=== PATIENT | male | born 1965 | race Caucasian/White ===

== ENCOUNTER 2018-02-03 14:51 | Emergency (ER) | payer OTHER ==
[2018-02-03] MEDS ORDERED: HYDROCODONE/APAP 5/325 MG TAB ONE (15:23)
[2018-02-03] MEDS ORDERED: DIAZEPAM 2 MG TABLET ONE (15:25)
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
--- NOTE | 2018-02-03 16:57 | RAD REPORT ---
EXAM DESCRIPTION: RAD - Lumbar Spine 3 Views - 02/03/2018 4:35 pm CLINICAL HISTORY: Back pain FINDINGS: The alignment of the lumbar spine is satisfactory. No fracture or dislocation is seen. Minimal spondylosis involves the lumbar spine
== END 2018-02-03 16:49 | disposition home or self-care (01) ==
LOC: ER 14:51
DX: I10 Essential (primary) hypertension (principal); V49.40XA Driver injured in collision with unspecified motor vehicles in traffic accident, initial encounter; E11.9 Type 2 diabetes mellitus without complications; Z88.6 Allergy status to analgesic agent; Z88.8 Allergy status to other drugs, medicaments and biological substances
CPT/HCPCS: 72100; 99284

== ENCOUNTER 2019-08-26 17:23 | Observation (INO) | payer OTHER ==
[2019-08-26] MEDS ORDERED: NA CHLORIDE 0.9% 1,000 ML ONE ×2 (17:47→19:31)
[2019-08-26] MEDS ORDERED: NA CHLORIDE 0.9% 2,000 ML ONE (17:58)
--- NOTE | 2019-08-26 18:18 | RAD REPORT ---
EXAM DESCRIPTION: RAD - Chest Single View - 08/26/2019 6:13 pm CLINICAL HISTORY: DYSPNEA Chest pain. COMPARISON: Chest Pa And Lat (2 Views) dated 04/26/2016; Chest Pa And Lat (2 Views) dated 07/13/2015 FINDINGS: Portable technique limits examination quality. The lungs are grossly clear. The heart is normal in size. No displaced fractures. IMPRESSION: No acute intrathoracic process suspected.
[2019-08-26 18:20] LABS: Absolute Lymphocytes (CBC) 2.2 K/uL (0.7-4.9); Basophils % 0.8 % (0-1.3); Lymphocytes % 23.2 % (15.3-44.8); MPV 8.6 fL (7.6-11.3); RBC Red Blood Cell Count 4.17 M/uL (4.33-5.43)
[2019-08-26 18:25] LABS: Protime INR 0.95
--- NOTE | 2019-08-26 18:34 | RAD REPORT ---
EXAM DESCRIPTION: CTAbdomen Pelvis W Contrast - 08/26/2019 6:23 pm CLINICAL HISTORY: Abdominal pain. diarrhea, weakness x 2 weeks COMPARISON: <Comparisons> TECHNIQUE: Biphasic CT imaging of the abdomen and pelvis was performed with 100 ml non-ionic IV cont rast. All CT scans are performed using dose optimization technique as appropriate and may include automated exposure control or mA/KV adjustment according to patient size. FINDINGS: The lung bases are clear. Advanced fatty liver is present. Cholecystectomy clips are seen. The spleen, pancreas, adrenal glands and kidneys are within normal limits. No bowel obstruction, free air, free fluid or abscess. The appendix is normal. Moderate fat containi ng left inguinal hernia. No evidence of significant lymphadenopathy. No suspicious bony findings. IMPRESSION: Advanced fatty liver.
[2019-08-26 18:40] LABS: ALT/SGPT 91 U/L (12-78); AST/SGOT 67 U/L (15-37); Albumin 4.4 g/dL (3.4-5.0); Alkaline Phosphatase 53 U/L (45-117); BUN Blood Urea Nitrogen 16 mg/dL (7-18); Bicarbonate 23 mmol/L (21-32); Bilirubin Direct 0.2 mg/dL (0-0.2); Bilirubin Total 0.5 mg/dL (0.2-1.0); Glucose Level 173 mg/dL (74-106); Lipase 146 U/L (73-393); Potassium 3.5 mmol/L (3.5-5.1); Protein, Total 8.6 g/dL (6.4-8.2); Sodium Level 133 mmol/L (136-145); Troponin (Emerg Dept Use Only) < 0.02 ng/mL (0.0-0.045)
[2019-08-26 18:42] LABS: C-Reactive Protein < 2.90 mg/L (<3.00)
[2019-08-26] MEDS ORDERED: ONDANSETRON 4 MG/2 ML VIAL IV PRN ×2 (18:45→21:12)
[2019-08-26] MEDS ORDERED: ACETAMINOPHEN 500 MG TAB PO PRN (18:45)
[2019-08-26] MEDS ORDERED: NA CHLORIDE 0.9% 1,000 ML IV SCH (19:00)
[2019-08-26] MEDS ORDERED: DIAZEPAM 10 MG/2 ML INJ SYRINGE ONE (19:37)
[2019-08-26 19:47] LABS: Urine Blood TRACE (NEG); Urine Glucose NEGATIVE (NEG); Urine Protein NEGATIVE (NEG); Urine Specific Gravity 1.015 (1.005-1.030); Urine pH 5.5 (5.0-7.0)
[2019-08-26 19:51] LABS: Urine Bacteria <20 /HPF (NONE SEEN); Urine Culture Reflex Order NOT NEEDED; Urine RBC <5 /HPF (NONE SEEN)
[2019-08-26] MEDS ORDERED: GABAPENTIN 100 MG CAP PO SCH (21:00)
[2019-08-26] MEDS ORDERED: HYDRALAZINE HCL 20 MG/ML VIAL IV PRN (21:12)
[2019-08-26] MEDS ORDERED: Oxycodone HCl/Acetaminophen 1 TAB TAB PO PRN (21:12)
[2019-08-26] MEDS ORDERED: GLUCAGON 1 MG/VIAL IM PRN (21:12)
[2019-08-26] MEDS ORDERED: D50W 25 GM/50 ML SYRINGE/VIAL IV PRN (21:12)
[2019-08-26] MEDS ORDERED: guaiFENesin 100 MG/5 ML UCUP PO PRN (21:12)
[2019-08-26] MEDS ORDERED: ACETAMINOPHEN 325 MG TABLET PO PRN (21:12)
[2019-08-26] MEDS ORDERED: POTASSIUM CL SA 10 MEQ TAB PO ONE (21:16)
[2019-08-26] MEDS ORDERED: AMLODIPINE 5 MG TAB PO ONE (21:17)
--- NOTE | 2019-08-26 21:27 | P.HP ---
Certification for Inpatient Patient admitted to: Observation With expected LOS: <2 Midnights Patient will require the following post-hospital care: None Practitioner: I am a practitioner with admitting privileges, knowledge of patient current condition, hospital course, and medical plan of care. Services: Services provided to patient in accordance with Admission requirements found in Title 42 Section 412.3 of the Code of Federal Regulations Patient History Date of Service: 08/26/19 Reason for admission: Weakness, cough and diarrhea History of Present Illness: 54-year-old male with past medical history of HTN, Diabetes mellitus type 2 with recent peripheral neuropathy, hyperlipidemia, developed body aches since last 2 weeks gradually worsening associated with new onset intermittent cough nonproductive since the last 1 day. Patient denies any fever. Patient admits to feeling of swelling around low-dose in his neck and back of his head. He denies any headache, dizziness or syncope. He admits to abdominal cramps with diarrhea since the last 3 days but no episode of bowel movement today due to loss of appetite. He feels hungry now more like something to eat. On arrival in the ED he was noted with elevated blood pressure. He has also be complain of cough but no sputum, no cough contact. He denies any fever or chills. Allergies rofecoxib [From Vioxx] Allergy (Verified 07/28/16 09:28) Rash No K Allergy (Uncoded 12/14/16 01:01) Unknown Home Medications: Cholecalciferol (Vitamin D3) [Vitamin D3] 5,000 unit PO DAILY 05/19/16 Empagliflozin [Jardiance] 10 mg PO DAILY 05/19/16 Insulin Degludec [Tresiba Flextouch U-100] 20 unit SQ DAILY AFTER SUPPER 05/19/16 Metformin HCl [Glucophage] 1,000 mg PO BID 05/19/16 Omeprazole 20 mg PO DAILY 05/19/16 Simvastatin [Zocor*] 40 mg PO BEDTIME 05/19/16 hydroCHLOROthiazide [Hydrodiuril*] 25 mg PO [id number] 05/19/16 lisinopriL [Prinivil*] 20 mg PO [id number] 05/19/16 - Past Medical/Surgical History Has patient received pneumonia vaccine in the past: No Diabetic: Yes -: Hypertension, Diabetes mellitus -: Hyperlipidemia -: Peripheral neuropathy -: Obesity -: History of GERD Past Surgical History: Reviewed- Non-Contributory - Family History Family History: Reviewed- Non-Contributory - Social History Smoking Status: Never smoker Smoking therapy provided: No Patient receptive to therapy: No Alcohol use: No CD- Drugs: No Place of Residence: Home Review of Systems 10-point ROS is otherwise unremarkable General: Weakness, Malaise Eyes: Unremarkable ENT: Unremarkable Respiratory: Cough Cardiovascular: Unremarkable Gastrointestinal: Nausea, Diarrhea Genitourinary: Unremarkable Musculoskeletal: Unremarkable Integumentary: Unremarkable Neurological: Numbness (in LE ) Physical Examination - Vital Signs Temperature: 98.2 F Blood Pressure: 148/104 Pulse: 138 Respirations: 24 - Physical Exam General: In no apparent distress, Oriented x3, Obese HEENT: Atraumatic, Normocephalic, PERRLA Neck: Supple, 2+ carotid pulse no bruit, JVD not distended Respiratory: Clear to auscultation bilaterally, Normal air movement Cardiovascular: Normal pulses, Regular rate/rhythm, Normal S1 S2 Gastrointestinal: Normal bowel sounds, Hypoactive, Soft and benign, Non- distended Musculoskeletal: No clubbing, No swelling Neurological: Normal gait, Normal speech, Normal strength at 5/5 x4 extr External genitalia: No edema, No lesions - Studies Laboratory Data (last 24 hrs) 08/26/19 18:05: PT 11.2, INR 0.95, APTT 32.1 08/26/19 18:05: WBC 9.4, Hgb 13.5 L, Hct 39.0 L, Plt Count 220 08/26/19 18:05: Sodium 133 L, Potassium 3.5, BUN 16, Creatinine 1.00, Glucose 173 H, Total Bilirubin 0.5, AST 67 H, ALT 91 H, Alkaline Phosphatase 53, Lipase 146 Microbiology Data (last 24 hrs): 08/26/19 17:50 Nasopharnyx Influenza Type A Antigen Screen - Final 08/26/19 17:50 Nasopharnyx Influenza Type B Antigen Screen - Final 08/26/19 17:50 Throat Group A Streptococcus Rapid Screen - Final 08/26/19 17:55 Stool Stool Occult Blood (RENZO) - Final 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 Assessment and Plan - Problems (Diagnosis) (1) Viral syndrome Current Visit: Yes Status: Acute (2) Hypertension Current Visit: Yes Status: Acute (3) Diabetes mellitus Current Visit: Yes Status: Acute (4) Peripheral neuropathy Current Visit: Yes Status: Acute (5) Hyperlipidemia Current Visit: Yes Status: Acute Discharge Plan: Home Plan to discharge in: 24 Hours - Advance Directives Does patient have a Living Will: No Does patient have a Durable POA for Healthcare: No - Code Status/Comfort Care Code Status: Full Code Physician Review: Patient Assessed, Agree with Above Assessment and Plan Physician Review Additional Text: Viral syndrome-resolving Will do Covid 19 testing Keeping in isolation unit Continue gentle IV fluid as tolerated but will encourage p.o. intake. If negative covid 19 testing in a.m. patient can be discharged home since resolving symptoms -we start him on empirical Rocephin for now Follow blood culture Hypertension-uncontrolled, will hold lisinopril and hydrochlorothiazide for now since contrast exposure iliac today We start amlodipine 10 mg x1 now and start Metoprolol 50 mg bid since elevated HR Resume lisinopril in a.m. if stable renal function. We do hydralazine p.r.n. Diabetes mellitus-we do Accu-Cheks b.i.d. with insulin sliding scale. Hold metformin for now since contrast exposure for next 24 hr. Peripheral neuropathy-unsure of home medication his recently was started on - will trial of Neurontin x1 now DVT prophylaxis-subcutaneous Lovenox Advanced directive-full code Total time spent evaluation patient discussion review of records greater than 60 min
[2019-08-26] MEDS ORDERED: CEFTRIAXONE/SWI 1gm 1 GM/10 ML SYR IV SCH (22:00)
[2019-08-26] MEDS ORDERED: NS KCL 20MEQ 20 MEQ/1,000 ML BAG IV SCH (22:00)
[2019-08-26 22:18] LABS: Thyroid Stimulating Hormone 4.16 uIU/mL (0.360-3.740)
[2019-08-26 22:21] VITALS: BMI 34.0
[2019-08-26] MEDS: FAMOTIDINE 20 MG TAB PO SCH (23:00)
[2019-08-26] MEDS: METOPROLOL XL 50 MG TAB PO SCH (23:04)
[2019-08-27] MEDS: METOPROLOL XL 50 MG TAB PO SCH (05:14)
[2019-08-27 05:38] LABS: Absolute Lymphocytes (CBC) 1.7 K/uL (0.7-4.9); Basophils % 0.9 % (0-1.3); Hematocrit 37.1 % (39.6-49.0); Lymphocytes % 27.8 % (15.3-44.8); MPV 8.7 fL (7.6-11.3); RBC Red Blood Cell Count 3.87 M/uL (4.33-5.43)
[2019-08-27 05:54] LABS: ALT/SGPT 69 U/L (12-78); AST/SGOT 41 U/L (15-37); Albumin 3.9 g/dL (3.4-5.0); Alkaline Phosphatase 41 U/L (45-117); BUN Blood Urea Nitrogen 12 mg/dL (7-18); Bicarbonate 25 mmol/L (21-32); Bilirubin Total 0.5 mg/dL (0.2-1.0); Glucose Level 111 mg/dL (74-106); Phosphorus 1.9 mg/dL (2.5-4.9); Protein, Total 7.4 g/dL (6.4-8.2); Sodium Level 140 mmol/L (136-145)
[2019-08-27 05:58] LABS: Magnesium 1.4 mg/dL (1.8-2.4)
[2019-08-27] MEDS ORDERED: Magnesium Sulfate 2gm IVPB 2 G/50 ML BAG IV ONE (06:19)
--- NOTE | 2019-08-27 06:45 | P.DS ---
Admission Date: 08/26/19 Discharge Date: 08/27/19 Disposition: ROUTINE DISCHARGE Discharge Condition: GOOD Reason for Admission: Weakness, cough and diarrhea - Problems (1) Viral syndrome Current Visit: Yes Status: Acute (2) Hypertension Current Visit: Yes Status: Acute (3) Diabetes mellitus Current Visit: Yes Status: Acute (4) Peripheral neuropathy Current Visit: Yes Status: Acute (5) Hyperlipidemia Current Visit: Yes Status: Acute Brief History of Present Illness: 54-year-old male with past medical history of HTN, Diabetes mellitus type 2 with recent peripheral neuropathy, hyperlipidemia, developed body aches since last 2 weeks gradually worsening associated with new onset intermittent cough nonproductive since the last 1 day. Patient denies any fever. Patient admits to feeling of swelling around low-dose in his neck and back of his head. He denies any headache, dizziness or syncope. He admits to abdominal cramps with diarrhea since the last 3 days but no episode of bowel movement today due to loss of appetite. He feels hungry now more like something to eat. On arrival in the ED he was noted with elevated blood pressure. He has also be complain of cough but no sputum, no cough contact. He denies any fever or chills. Hospital Course: Patient was admitted Overnite. He did not have any recurrence of diarrhea. He was started on gentle IV fluid hydration with potassium replacement. His magnesium was low at 1.4 which was repleted as well as his phos was was also repleted. His tsh was normal. He has mild elevated LFTs trended down to normal within 12 hr of presentation. As well as correction of his electrolytes. Patient weakness started to improve. His appetite improved and was started on p.o. intake. Patient will be discharged with p.o. magnesium for the next 5 days. Symptoms will of felt to be due to viral syndrome with possible recent acute gastroenteritis. He has covid 19 test was negative. He will be discharged home today and advice to follow up with primary in 3-5 days. Of note she has elevated blood pressure but given his electrolyte imbalance his hydrochlorothiazide was held as well as he was started on metoprolol for elevated heart rate. Physiatry DD improved to normal range now. Vital Signs/Physical Exam: Temp Pulse Resp BP Pulse Ox 97.7 F 90 16 141/96 H 96 08/27/19 04:00 08/27/19 05:14 08/27/19 04:00 08/27/19 05:14 08/27/19 04:00 General: In no apparent distress, Oriented x3 HEENT: Atraumatic, Normocephalic Neck: Supple, 2+ carotid pulse no bruit Respiratory: Clear to auscultation bilaterally, Normal air movement Cardiovascular: Normal pulses, Regular rate/rhythm, Normal S1 S2 Gastrointestinal: Normal bowel sounds, Soft and benign, Non-distended Integumentary: No rashes, No breakdown Neurological: Normal speech, Normal strength at 5/5 x4 extr, Cranial nerves 3-12 intact Laboratory Data at Discharge: WBC 6.3 K/uL (4.3-10.9) D 08/27/19 05:15 Hgb 12.7 g/dL (13.6-17.9) L 08/27/19 05:15 Hct 37.1 % (39.6-49.0) L 08/27/19 05:15 Plt Count 181 K/uL (152-406) 08/27/19 05:15 PT 11.2 SECONDS (9.5-12.5) 08/26/19 18:05 INR 0.95 08/26/19 18:05 APTT 32.1 SECONDS (24.3-36.9) 08/26/19 18:05 Sodium 140 mmol/L (136-145) 08/27/19 05:15 Potassium 4.0 mmol/L (3.5-5.1) 08/27/19 05:15 BUN 12 mg/dL (7-18) 08/27/19 05:15 Creatinine 0.80 mg/dL (0.55-1.3) 08/27/19 05:15 Glucose 111 mg/dL (74-106) H 08/27/19 05:15 Phosphorus 1.9 mg/dL (2.5-4.9) L 08/27/19 05:15 Magnesium 1.4 mg/dL (1.8-2.4) L* 08/27/19 05:15 Total Bilirubin 0.5 mg/dL (0.2-1.0) 08/27/19 05:15 AST 41 U/L (15-37) H 08/27/19 05:15 ALT 69 U/L (12-78) 08/27/19 05:15 Alkaline Phosphatase 41 U/L (45-117) L 08/27/19 05:15 Lipase 146 U/L (73-393) 08/26/19 18:05 Home Medications: Metformin HCl [Glucophage] 1,000 mg PO BID 05/19/16 Omeprazole 40 mg PO DAILY 05/19/16 Simvastatin [Zocor*] 40 mg PO BEDTIME 05/19/16 lisinopriL [Prinivil*] 20 mg PO [id number] 05/19/16 Montelukast [Singulair*] 10 mg PO DAILY 08/26/19 Sildenafil Citrate 20 mg PO PRN PRN 08/26/19 Magnesium Oxide 400 mg PO BID #10 tablet 08/27/19 Metoprolol Succinate [Toprol Xl*] 50 mg PO DAILY #30 tab 08/27/19 New Medications: Magnesium Oxide 400 mg PO BID #10 tablet Metoprolol Succinate [Toprol Xl*] 50 mg PO DAILY #30 tab Patient Discharge Instructions: follow wth PCP in 3-5 days Diet: Low sodium Activity: Ad kylah Time spent managing pt's care (in minutes): 35
--- NOTE | 2019-08-27 07:08 | EKG ---
Test Date: 2019-08-26 Test Time: 17:46:35 Accident Report Clerk: MAXINE MEASUREMENT RESULTS: Intervals: Rate: 145 OK: 118 QRSD: 74 QT: 274 QTc: 425 [place]: P: 38 OK: 118 QRS: -1 T: 28 INTERPRETIVE STATEMENTS: Sinus tachycardia Otherwise normal ECG Compared to ECG 12/13/2016 21:25:39 ST (T wave) deviation no longer present Electronically Signed On 08-27-19 07:07:59 CDT by Abner Schmid
[2019-08-27] MEDS ORDERED: INSULIN -REGULAR HUMAN 50 UNIT/0.5 ML ML SQ SCH (07:30)
[2019-08-27] MEDS ORDERED: METFORMIN HCL 500 MG TAB PO SCH (08:00)
[2019-08-27] MEDS: POTASS/SODIUM PHOSPHATE 1 PKT POWD.PACK PO SCH ×2 (08:00→09:00)
[2019-08-27] MEDS ORDERED: POTASSIUM PHOS 20 MM in NA CHLORIDE 0.9% 500 ML IV ONE (09:00)
[2019-08-27] MEDS ORDERED: ENOXAPARIN 40 MG/0.4 ML SQ SCH (09:00)
[2019-08-27] MEDS: FAMOTIDINE 20 MG TAB PO SCH (09:02)
[2019-08-27 12:34] VITALS: BP 145/91; TEMP 98.3
[2019-08-27 13:30] VITALS: O2SAT 97
[2019-08-28] MEDS ORDERED: Magnesium Sulfate 2gm IVPB 2 G/50 ML BAG IV ONE (07:00)
--- NOTE | 2019-09-02 12:31 | EDPHYS ---
Physician Documentation [facility] Name: Seth Flowers Age: 54 yrs Sex: Male : 1965 Arrival Date: 08/26/2019 Time: 17:25 Bed 7 Private MD: ED Physician Homer Mendoza HPI: 08/25 17:50 This 54 yrs old Male presents to ER via Ambulatory with complaints of rn Weakness, Shaking. 17:51 Reports 2.5 weeks on non-bloody diarrhea, slowing down but still present, assoc with rn generalized malaise and fatigue, no fever, got tested for Coronavirus 2 weeks ago but did not get test results. Denies known sick contact. + sob and chills. No vomiting. No chest pain. . Onset: The symptoms/episode began/occurred 2.5 week(s) ago. Severity of symptoms: At their worst the symptoms were moderate in the emergency department the symptoms are unchanged. The patient has not experienced similar symptoms in the past. The patient has not recently seen a physician. Historical: - Allergies: 17:29 Celebrex; aa5 17:29 Vioxx; aa5 - PMHx: 17:29 Diabetes - IDDM; GERD; Heart Murmur; Hypertension; Multiple Sclerosis; aa5 - PSHx: 17:29 Cholecystectomy; aa5 - Immunization history:: Adult Immunizations unknown. - Social history:: Smoking status: Patient denies any tobacco usage or history of. - Family history:: not pertinent. - Hospitalizations: : No recent hospitalization is reported. ROS: 17:51 Constitutional: + chills Eyes: Negative for injury, pain, redness, and discharge, ENT: rn + sore throat Neck: Negative for injury Cardiovascular: Negative for chest pain, palpitations, and edema, Respiratory: + sob Abdomen/GI: + diarrhea and nausea MS/Extremity: Negative for injury and deformity, Skin: Negative for injury, rash, and discoloration, Neuro: Negative for headache, numbness, tingling, and seizure. Exam: 17:59 Constitutional: This is a well developed, well nourished patient who is awake, alert, rn and in no acute distress. Ambulatory to room without assistance. Head/Face: Normocephalic, atraumatic. ENT: No stridor Neck: Trachea midline, + tender bilateral cervical LAD, no meningismus, no pain with full neck flexion or extension. Cardiovascular: Tachycardic, regular Respiratory: + tachypnea, no retractions, speaking full sentences. Abdomen/GI: soft, non-tender, no masses MS/ Extremity: Pulses equal, no cyanosis. Neurovascular intact. Full, normal range of motion. Equal circumference. Neuro: Awake and alert, GCS 15, oriented to person, place, time, and situation. Cranial nerves II-XII grossly intact. Motor strength 5/5 in all extremities. Sensory grossly intact. Cerebellar exam normal. Normal gait. 18:01 ECG was reviewed by the Attending Physician. rn Vital Signs: 17:30 BP 147 / 119; Pulse 150; Resp 28 S; Temp 98.2(O); Pulse Ox 98% on R/A; Weight 97.52 kg aa5 (R); Height 5 ft. 8 in. (172.72 cm) (R); Pain 0/10; 18:31 BP 145 / 105; Pulse 139; Resp 20 S; Pulse Ox 95% on R/A; ca1 19:23 BP 148 / 104; Pulse 138; Resp 24; Pulse Ox 96% ; ea 17:30 Body Mass Index 32.69 (97.52 kg, 172.72 cm) aa5 MDM: 17:35 Patient medically screened. rn 18:44 Differential Diagnosis sepsis, flu, COVID-19. Data reviewed: vital signs, nurses notes, [employer] professor test result(s), radiologic studies, CT scan, plain films, and as a result, I will admit patient. Test interpretation: by ED physician or midlevel provider: ECG, plain radiologic studies, CXR neg for pneumonia or acute infiltrate. Counseling: I had a detailed discussion with the patient and/or guardian regarding: the historical points, exam findings, and any diagnostic results supporting the discharge/admit diagnosis, lab results, radiology results, the need for further work-up and treatment in the hospital. Response to treatment: the patient's symptoms have mildly improved after treatment, and as a result, I will admit patient. Admission orders: after a detailed discussion of the patient's condition and case, the admit orders are written by me. ED course: Pt with neg cxr and CT abdomen/pelvis, neg strep, + elevated lactate, pending flu and COVID-19 as well as stool studies. Notified Dr. Manzanares of admission, will be admitted. Vitals improving with fluids. . 08/25 17:45 Order name: Blood Culture Adult (2) 08/25 17:45 Order name: BMP 08/25 17:45 Order name: C-Reactive Protein 08/25 17:45 Order name: CBC with Diff 08/25 17:45 Order name: COVID-19 08/25 17:45 Order name: Ferritin 08/25 17:45 Order name: Flu 08/25 17:45 Order name: Lactate; Complete Time: 18:45 08/25 17:45 Order name: LFT's; Complete Time: 18:45 08/25 17:45 Order name: Lipase; Complete Time: 18:45 08/25 17:45 Order name: Procalcitonin 08/25 17:45 Order name: PT-INR; Complete Time: 18:40 08/25 17:45 Order name: Ptt, Activated; Complete Time: 18:40 08/25 17:45 Order name: Strep; Complete Time: 18:35 08/25 17:45 Order name: Troponin (emerg Dept Use Only); Complete Time: 18:45 08/25 17:45 Order name: Urine Microscopic Only 08/25 17:45 Order name: [place] Screen Profile; Complete Time: 18:35 08/25 17:48 Order name: Blood Culture [facility] 08/25 17:48 Order name: Basic Metabolic Panel; Complete Time: 18:45 [facility] 08/25 17:48 Order name: C-Reactive Protein; Complete Time: 18:45 [facility] 08/25 17:48 Order name: CBC with Automated Diff; Complete Time: 18:35 [facility] 08/25 17:48 Order name: CORONAVIRUS [facility] 08/25 17:48 Order name: Ferritin; Complete Time: 18:45 [facility] 08/25 17:48 Order name: Influenza Screen (A ; Complete Time: 18:52 [facility] 08/25 17:55 Order name: Occult Blood 08/25 17:55 Order name: Stool Culture 08/25 17:55 Order name: Rotavirus Antigen 08/25 18:02 Order name: Glucose, Ancillary Testing; Complete Time: 18:02 [facility] 08/25 18:30 Order name: Throat Culture [facility] 08/25 18:36 Order name: CREATININE WHOLE BLOOD; Complete Time: 18:40 [facility] 08/25 17:45 Order name: IV Start; Complete Time: 18:12 rn 08/25 17:45 Order name: CXR XRAY; Complete Time: 18:35 rn 08/25 17:45 Order name: EKG; Complete Time: 17:48 rn 08/25 17:45 Order name: Cardiac monitoring; Complete Time: 17:55 rn 08/25 17:45 Order name: Droplet/Contact Precautions; Complete Time: 17:56 rn 08/25 17:45 Order name: EKG - Nurse/Tech; Complete Time: 17:56 rn 08/25 17:45 Order name: Labs collected and sent; Complete Time: 17:56 08/25 17:45 Order name: O2 Per Protocol; Complete Time: 17:56 08/25 17:45 Order name: O2 Sat Monitoring; Complete Time: 17:56 08/25 17:51 Order name: CT Abd/Pelvis - IV Contrast Only; Complete Time: 18:40 08/25 18:49 Order name: Comprehensive Metabolic Panel [facility] 08/25 18:49 Order name: Comprehensive Metabolic Panel [facility] 08/25 18:49 Order name: Magnesium [facility] 08/25 18:49 Order name: Magnesium [facility] 08/25 18:49 Order name: Phosphorus [facility] 08/25 18:49 Order name: Phosphorus [facility] 08/25 19:25 Order name: Urine Dipstick--Ancillary (enter results) [facility] 08/25 19:53 Order name: Urine Dipstick-Ancillary [facility] EC:01 Rate is 145 beats/min. Rhythm is regular. QRS [place] is Normal. [place] interval is normal. rn QRS interval is normal. QT interval is normal. No Q waves. T waves are Normal. No ST changes noted. Clinical impression: Sinus tachycardia. Interpreted by me. Reviewed by me. Administered Medications: 17:56 Drug: NS 0.9% 1000 ml Route: IV; Rate: 1000 ml; Site: right antecubital; ls4 19:36 Follow up: IV Status: Completed infusion; IV Intake: 1000ml rv 18:11 Drug: NS 0.9% 1000 ml Route: IV; Rate: 1000 ml; Site: right antecubital; ca1 19:36 Follow up: IV Status: Completed infusion; IV Intake: 1000ml rv 19:35 Drug: Valium 5 mg Route: IVP; Site: left antecubital; rv 20:13 Follow up: Response: No adverse reaction; Other rv 19:36 Drug: NS 0.9% 1000 ml Route: IV; Rate: 1 bolus; Site: left antecubital; rv 20:13 Follow up: IV Status: Infusion continued upon transfer rv Disposition: 08/26/19 18:46 Hospitalization ordered by Blaine Cervantes for Inpatient Admission. Preliminary diagnosis are Dehydration, Viral Syndrome, Diarrhea, unspecified. - Bed requested for Telemetry/MedSurg (Inpatient). - Status is Inpatient Admission. ea - Condition is Stable. - Problem is an ongoing problem. - Symptoms have improved. Critical care time excluding procedures: 18:44 Critical care time: Bedside Care: 25 minutes, Consultation: 5 minutes. Total time: 30 rn minutes Signatures: Dispatcher [employer] Olivia Hammond RN RN dw Nieto, Roman, MD MD rn Calderon, Audri, RN RN aa5 Antunez, Elena, RN RN ea Vicente, Ronaldo RN Marixa Koroma RN RN ls4 Lisbeth Martinez RN RN ca1 Corrections: (The following items were deleted from the chart) 17:59 17:51 Constitutional: + chills Eyes: Negative for injury, pain, redness, and discharge, rn labor delivery: + sore throat Neck: Negative for injury Cardiovascular: Negative for chest pain, palpitations, and edema, Respiratory: + sob Abdomen/GI: + diarrhea and nausea MS/Extremity: Negative for injury and deformity, Skin: Negative for injury, rash, and discoloration, Neuro: Negative for headache, numbness, tingling, and seizure, rn 18:40 17:45 [place] ordered. rn aa5 18:50 17:45 Document PUI# ordered. rn ca1 18:51 17:45 Notify Health Dept [phone]/ ordered. rn ca1 19:21 18:46 Hospitalization Ordered by Blaine Cervantes MD for Inpatient Admission. Preliminary dw diagnosis is Dehydration; Viral Syndrome; Diarrhea, unspecified. Bed requested for Telemetry/MedSurg (Inpatient). Status is Inpatient Admission. Condition is Stable. Problem is an ongoing problem. Symptoms have improved. rn 20:18 19:21 08/26/2019 18:46 Hospitalization Ordered by Blaine Cervantes MD for Inpatient ea Admission. Preliminary diagnosis is Dehydration; Viral Syndrome; Diarrhea, unspecified. Bed requested for Telemetry/MedSurg (Inpatient). Status is Inpatient Admission. Condition is Stable. Problem is an ongoing problem. Symptoms have improved. dw
--- NOTE | 2019-09-02 12:31 | ER ---
Nurse's Notes [facility] Name: Seth Flowers Age: 54 yrs Sex: Male : 1965 Arrival Date: 08/26/2019 Time: 17: Bed 7 Private MD: Diagnosis: Dehydration;Viral Syndrome;Diarrhea, unspecified Presentation: 08/25 17:28 Chief complaint: Patient states: "I've been sick for about 2 weeks, it started with aa5 diarrhea and decreased appetite". Pt reports generalized weakness, cough, SOB, shaking, nausea, night seats, and swollen lymph nodes to neck area. Pt denies abd pain, denies any pain. 17:28 Acuity: SATHISH 2 aa5 17:28 Method Of Arrival: Ambulatory aa5 17:28 Coronavirus screen: Patient reports a cough. Patient reports shortness of breath or aa5 difficulty breathing. Patient denies measured and/or subjective temperature greater than 100.4F prior to today's visit. Patient denies travel on a cruise ship or to a country the [facility] currently lists as an affected area. Patient denies contact with known and/or suspected case of COVID-19. 17:28 Ebola Screen: Patient negative for fever greater than or equal to 101.5 degrees aa5 Fahrenheit, and additional compatible Ebola Virus Disease symptoms. Risk Assessment: Do you want to hurt yourself or someone else? Patient reports no desire to harm self or others. 17:28 Initial Sepsis Screen: Does the patient meet any 2 criteria? RR > 20 per min. HR > 90 aa5 bpm. Does the patient have a suspected source of infection? Yes:. 17:28 Onset of symptoms was August 2019. aa5 Historical: - Allergies: 17:29 Celebrex; aa5 17:29 Vioxx; aa5 - PMHx: 17:29 Diabetes - IDDM; GERD; Heart Murmur; Hypertension; Multiple Sclerosis; aa5 - PSHx: 17:29 Cholecystectomy; aa5 - Immunization history:: Adult Immunizations unknown. - Social history:: Smoking status: Patient denies any tobacco usage or history of. - Family history:: not pertinent. - Hospitalizations: : No recent hospitalization is reported. Screenin:35 Abuse screen: Denies threats or abuse. Denies injuries from another. Nutritional ca1 screening: No deficits noted. Tuberculosis screening: No symptoms or risk factors identified. Fall Risk IV access (20 points). Assessment: 17:35 General: Appears in no apparent distress. comfortable, Behavior is calm, cooperative, ca1 appropriate for age. General: Reports feeling ill for > 3 days. General: Reports feeling "shaky". Pain: Denies pain. Neuro: Level of Consciousness is awake, alert, obeys commands, Oriented to person, place, time, situation, Appropriate for age. Cardiovascular: Heart tones S1 S2 present Capillary refill < 3 seconds Patient's skin is warm and dry. Rhythm is sinus tachycardia. Respiratory: Airway is patent Respiratory effort is even, unlabored, Respiratory pattern is regular, symmetrical, Breath sounds are clear bilaterally. GI: Abdomen is round non-distended, Bowel sounds present X 4 quads. Abd is soft and non tender X 4 quads. Reports diarrhea, nausea, since 2.5 wks. : No signs and/or symptoms were reported regarding the genitourinary system. EENT: No signs and/or symptoms were reported regarding the EENT system. Derm: Skin is intact, is healthy with good turgor, Skin is moist, Skin is pink, Skin temperature is cool. Musculoskeletal: Circulation, motion, and sensation intact. Capillary refill < 3 seconds. 18:31 Reassessment: Patient appears in no apparent distress at this time. Patient and/or ca1 family updated on plan of care and expected duration. Pain level reassessed. Patient is alert, oriented x 3, equal unlabored respirations, skin warm/dry/pink. 19:18 Reassessment: Josh (Son) [phone], son reports pt is a heavy drinker. ea 19:37 Reassessment: Patient and/or family updated on plan of care and expected duration. Pain rv level reassessed. Patient is alert/active/playful, equal unlabored respirations, skin warm/dry/pink. patient still complains of shakiness. son called and informed us that the patient have history of alcoholism. referred to Dr Wayne. given NS bolus and dose of Valium. 19:41 Reassessment: NO ANTIBIOTIC NEEDED FOR THE PATIENT PER DR WAYNE. rv Vital Signs: 17:30 BP 147 / 119; Pulse 150; Resp 28 S; Temp 98.2(O); Pulse Ox 98% on R/A; Weight 97.52 kg aa5 (R); Height 5 ft. 8 in. (172.72 cm) (R); Pain 0/10; 18:31 BP 145 / 105; Pulse 139; Resp 20 S; Pulse Ox 95% on R/A; ca1 19:23 BP 148 / 104; Pulse 138; Resp 24; Pulse Ox 96% ; ea 17:30 Body Mass Index 32.69 (97.52 kg, 172.72 cm) aa5 ED Course: 17:25 Patient arrived in ED. ag5 17:28 Arm band placed on Patient placed in an exam room, on a stretcher. aa5 17:29 Lisbeth Martinez, BLAYNE is Primary Nurse. ca1 17:35 Homer Mendoza MD is Attending Physician. rn 17:35 Patient has correct armband on for positive identification. Bed in low position. Call ca1 light in reach. Side rails up X 1. caustic strength inspector on. Pulse ox on. NIBP on. 17:42 Triage completed. aa5 17:56 BMP Sent. ls4 17:56 C-Reactive Protein Sent. ls4 17:56 CBC with Diff Sent. ls4 17:56 Ferritin Sent. ls4 17:56 Flu Sent. ls4 17:57 COVID-19 Sent. ls4 18:00 Missed attempt(s): 20 gauge in left forearm. Bleeding controlled, band aid applied, ca1 catheter tip intact. Inserted saline lock: 18 gauge in right antecubital area, using aseptic technique. ,using aseptic technique. by BLAYNE Calvin Blood collected. 18:00 Initial lab(s) drawn, by ED staff, sent to lab. First set of blood cultures drawn by ED ca1 staff. 18:18 CXR XRAY In Process Unspecified. EDMS 18:25 CT Abd/Pelvis - IV Contrast Only In Process Unspecified. EDMS 18:46 Blaine Cervantes MD is Hospitalizing Provider. rn 18:51 Inserted saline lock: 20 gauge in left antecubital area, using aseptic technique. dh4 19:18 No provider procedures requiring assistance completed. Patient admitted, IV remains in ea place. Administered Medications: 17:56 Drug: NS 0.9% 1000 ml Route: IV; Rate: 1000 ml; Site: right antecubital; ls4 19:36 Follow up: IV Status: Completed infusion; IV Intake: 1000ml rv 18:11 Drug: NS 0.9% 1000 ml Route: IV; Rate: 1000 ml; Site: right antecubital; ca1 19:36 Follow up: IV Status: Completed infusion; IV Intake: 1000ml rv 19:35 Drug: Valium 5 mg Route: IVP; Site: left antecubital; rv 20:13 Follow up: Response: No adverse reaction; Other rv 19:36 Drug: NS 0.9% 1000 ml Route: IV; Rate: 1 bolus; Site: left antecubital; rv 20:13 Follow up: IV Status: Infusion continued upon transfer rv Intake: 19:36 IV: 1000ml; Total: 1000ml. rv 19:36 IV: 1000ml; Total: 2000ml. rv Outcome: 18:46 Decision to Hospitalize by Provider. rn 19:39 Admitted to Tele accompanied by tech, via wheelchair, room 413, with chart, Report rv called to KAITLIN CISNEROS 19:39 Condition: stable 19:39 Instructed on the need for admit. 20:18 Patient left the ED. ea Signatures: Dispatcher [employer] EDHomer Massey MD MD rn Calderon, Audri RN RN gracie5 Guillermina Lee RN Heraclio Vail ea RN RN Marixa Tinajero RN RN ls4 Lisbeth Martinez RN RN Jesús Muñoz Donald 4 Corrections: (The following items were deleted from the chart) 19:27 19:18 Reassessment: Josh (Son) [phone] kathia bae
== END 2019-08-27 14:00 | disposition home or self-care (01) ==
LOC: ER 17:23 → ERHOLD 19:21 → INTOOBSV 19:21 → 4TH 19:45 → 2ND 08-27 01:42
PROVIDERS: ADMIT Family Medicine; ATTEND Internal Medicine
DX: B34.9 Viral infection, unspecified (principal); I10 Essential (primary) hypertension; E11.9 Type 2 diabetes mellitus without complications; G62.9 Polyneuropathy, unspecified; E78.5 Hyperlipidemia, unspecified; E66.9 Obesity, unspecified; K21.9 Gastro-esophageal reflux disease without esophagitis; Z68.34 Body mass index [BMI] 34.0-34.9, adult; Z20.828 Contact with and (suspected) exposure to other viral communicable diseases
CPT/HCPCS: 96361; 93005; 87040 ×2; 87070; 87045; 85025 ×2; 80048; 36415; 83735; 86308; 82274; 84100; 85610; 82565; 82947; 80076; 87046; 87081; 83605 ×2; 85730; 84443; 84484; 84439; 82728; 83690; 80053; 84145; 87425; 86140; 87804 ×2; 74177; 71045; 94760 ×2; 96374; 99285; U0002; Q9967; J1650; J3360; J3475; J0696; J7040; J7030 ×4; G0378 ×3; 81003; 81015

== ENCOUNTER 2020-11-02 16:00 | Emergency (ER) | payer OTHER ==
--- NOTE | 2020-11-02 18:47 | RAD REPORT ---
EXAM DESCRIPTION: CT - Head Brain Wo Cont - 11/02/2020 6:41 pm CLINICAL HISTORY: tremors;Visual disturbances Headache, drowsiness COMPARISON: No comparisons TECHNIQUE: All CT scans are performed using dose optimization technique as appropriate and may inclu de automated exposure control or mA/KV adjustment according to patient size. FINDINGS: No intracranial hemorrhage, hydrocephalus or extra-axial fluid collection.No areas of brai n edema or evidence of midline shift. The paranasal sinuses and mastoids are clear. The calvarium is intact. IMPRESSION: No acute intracranial abnormality.
[2020-11-02] MEDS ORDERED: NA CHLORIDE 0.9% 1,000 ML ONE ×2 (20:46→20:49)
[2020-11-02] MEDS ORDERED: LORazepam 2 MG/ML VIAL ONE (20:46)
[2020-11-02] MEDS ORDERED: THIAMINE 200 MG/2 ML INJ ONE (20:46)
[2020-11-02] MEDS ORDERED: FOLIC ACID 5 MG/ML VIAL ONE (20:47)
[2020-11-02 21:01] LABS: Absolute Lymphocytes (CBC) 1.3 K/uL (0.7-4.9); Basophils % 0.8 % (0-1.3); Hematocrit 39.3 % (39.6-49.0); Lymphocytes % 18.9 % (15.3-44.8); MPV 8.3 fL (7.6-11.3); RBC Red Blood Cell Count 4.11 M/uL (4.33-5.43)
[2020-11-02 21:12] LABS: ALT/SGPT 101 U/L (12-78); AST/SGOT 68 U/L (15-37); Albumin 4.1 g/dL (3.4-5.0); Alkaline Phosphatase 59 U/L (45-117); BUN Blood Urea Nitrogen 21 mg/dL (7-18); Bicarbonate 25 mmol/L (21-32); Bilirubin Direct 0.1 mg/dL (0-0.2); Bilirubin Total 0.6 mg/dL (0.2-1.0); Glucose Level 127 mg/dL (74-106); Potassium 4.3 mmol/L (3.5-5.1); Protein, Total 8.1 g/dL (6.4-8.2); Sodium Level 139 mmol/L (136-145)
--- NOTE | 2020-11-02 23:19 | ER ---
Nurse's Notes [facility] Name: Seth Flowers Age: 55 yrs Sex: Male : 1965 Arrival Date: 11/02/2020 Time: 16:16 Bed 16 Private MD: Diagnosis: Alcohol dependence with withdrawal Presentation: 11/02 18:19 Chief complaint: Patient states: went to PCP this morning and was told his BP was high, iw has had chills and tremors, sweating at night off and on for several months, had EKG done and was normal , takes lisinopril and metoprolol but is not sure if he took it this morning , pt has also had blurry vision. Coronavirus screen: Client presents with at least one sign or symptom that may indicate coronavirus-19. Ebola Screen: Patient negative for fever greater than or equal to 101.5 degrees Fahrenheit, and additional compatible Ebola Virus Disease symptoms Patient denies exposure to infectious person. Patient denies travel to an Ebola-affected area in the 21 days before illness onset. No symptoms or risks identified at this time. Initial Sepsis Screen: Does the patient have a suspected source of infection? No. Patient's initial sepsis screen is negative. Risk Assessment: Do you want to hurt yourself or someone else? Patient reports no desire to harm self or others. Onset of symptoms was June 2020. 18:19 Method Of Arrival: Ambulatory iw 18:19 Acuity: SATHISH 3 iw 18:21 Initial Sepsis Screen: Does the patient meet any 2 criteria? No. Patient's initial iw sepsis screen is negative. Historical: - Allergies: 18:20 Celebrex; iw 18:20 Vioxx; iw - PMHx: 18:20 Diabetes - IDDM; GERD; Heart Murmur; Hypertension; Multiple Sclerosis; iw - Immunization history:: Client reports receiving the 2nd dose of the Covid vaccine. - Social history:: Smoking status: Patient denies any tobacco usage or history of. Screenin:43 Abuse screen: Denies threats or abuse. Denies injuries from another. Nutritional em screening: No deficits noted. Tuberculosis screening: No symptoms or risk factors identified. Fall Risk None identified. Assessment: 20:42 General: Appears in no apparent distress. Behavior is calm, cooperative. Pain: Denies em pain. Neuro: No deficits noted. Cardiovascular: Rhythm is sinus tachycardia. Respiratory: No deficits noted. Vital Signs: 18:19 BP 187 / 119; Pulse 103; Resp 18; Temp 98.7; Pulse Ox 100% on R/A; iw 20:42 BP 150 / 90; Pulse 105; Resp 20; Pulse Ox 100% on R/A; em 20:47 BP 136 / 80; Pulse 103; em 23:18 BP 145 / 82; Pulse 91; Resp 18; Pulse Ox 98% on R/A; ak2 ED Course: 16:16 Patient arrived in ED. am2 18:20 Triage completed. iw 18:22 Arm band placed on. iw 18:41 CT Head Brain wo Cont In Process Unspecified. EDMS 20:05 Mc Urrutia NP is PHCP. pm1 20:05 Demetris Oliveros MD is Attending Physician. pm1 20:43 Patient has correct armband on for positive identification. em 20:43 No provider procedures requiring assistance completed. Inserted saline lock: 18 gauge em in left antecubital area, using aseptic technique. Administered Medications: 20:41 Drug: Banana Bag - (NS 0.9% 1000 ml, foLIC Acid 1 mg, Thiamine 100 mg, Multivitamin 1 em amp) Route: IV; Rate: calculated rate; Site: left antecubital; 20:41 Drug: Ativan (LORazepam) 1 mg Route: IVP; Site: left antecubital; em 20:41 Drug: NS 0.9% 1000 ml Route: IV; Rate: 1000 ml; Site: left antecubital; em Outcome: 23:18 Discharge ordered by . pm1 [id number] 00:19 Discharged to home ambulatory. ak2 Condition: good Discharge instructions given to patient. 00:20 Patient left the ED. ak2 Signatures: Dispatcher [employer] EDMS Robert Peña RN RN em Didi Godwin RN RN iw Mc Urrutia NP NUCLEAR POWERPLANT SUPERVISOR pm1 Sudha Mosqueda am2 Randy Duran ak2 Corrections: (The following items were deleted from the chart) 11/02 18:22 18:19 Chief complaint: Patient states: went to PCP this morning and was told his BP was iw high, has had chills and tremors, sweating at night off and on for several months, had EKG done and was normal iw 18:22 18:19 Chief complaint: Patient states: went to PCP this morning and was told his BP was iw high, has had chills and tremors, sweating at night off and on for several months, had EKG done and was normal , takes lisinopril and metoprolol but is not sure if he took it this morning iw
--- NOTE | 2020-11-02 23:19 | EDPHYS ---
Physician Documentation [facility] Name: Seth Flowers Age: 55 yrs Sex: Male : 1965 Arrival Date: 11/02/2020 Time: 16:16 Bed 16 Private MD: ED Physician Demetris Oliveros HPI: 11/02 20:23 This 55 yrs old Male presents to ER via Ambulatory with complaints of High pm1 Blood Pressure, Tremors,chills. 20:23 The patient has elevated blood pressure and discovered this at a physician's office, pm1 and sent to the emergency department for evaluation. Onset: The symptoms/episode began/occurred today. Modifying factors: The symptoms are aggravated by unknown. Associated signs and symptoms: Pertinent positives: tremors to hands. Severity of symptoms: in the emergency department the blood pressure is unchanged. The patient has been recently seen by a physician: the patient's primary care provider, with similar presenting complaints, and was sent to the [facility] Emergency Department for further evaluation. 20:23 Patient is a daily drinker and last drank vodka and beer at 0100 today. pm1 Historical: - Allergies: 18:20 Celebrex; iw 18:20 Vioxx; iw - PMHx: 18:20 Diabetes - IDDM; GERD; Heart Murmur; Hypertension; Multiple Sclerosis; iw - Immunization history:: Client reports receiving the 2nd dose of the Covid vaccine. - Social history:: Smoking status: Patient denies any tobacco usage or history of. ROS: 20:23 Cardiovascular: Negative for chest pain, palpitations, and edema. pm1 20:23 Respiratory: Negative for shortness of breath, cough, wheezing, and pleuritic chest pain, Abdomen/GI: Negative for abdominal pain, nausea, vomiting, diarrhea, and constipation, Back: Negative for injury and pain, MS/Extremity: Negative for injury and deformity, Skin: Negative for injury, rash, and discoloration, Neuro: Negative for headache, weakness, numbness, tingling, and seizure. 20:23 Constitutional: Positive for chills, Negative for poor PO intake. 20:23 Eyes: Positive for blurry vision, Negative for vision loss. 20:23 All other systems are negative. Exam: 20:23 Constitutional: This is a well developed, well nourished patient who is awake, alert, pm1 and in no acute distress. Head/Face: Normocephalic, atraumatic. Cardiovascular: Regular rate and rhythm with a normal S1 and S2. No gallops, murmurs, or rubs. Normal PMI, no JVD. No pulse deficits. Respiratory: Lungs have equal breath sounds bilaterally, clear to auscultation and percussion. No rales, rhonchi or wheezes noted. No increased work of breathing, no retractions or nasal flaring. Abdomen/GI: Soft, non-tender, with normal bowel sounds. No distension or tympany. No guarding or rebound. No evidence of tenderness throughout. Back: No spinal tenderness. No costovertebral tenderness. Full range of motion. Skin: Warm, dry with normal turgor. Normal color with no rashes, no lesions, and no evidence of cellulitis. MS/ Extremity: Pulses equal, no cyanosis. Neurovascular intact. Full, normal range of motion. 20:23 Eyes: Exam is negative for acute changes, Extraocular movements: no acute changes, Conjunctiva: normal, no injection, Sclera: no acute changes, icterus, is not appreciated. 20:23 ENT: Mouth: no acute changes, Lips: normal, Oral mucosa: normal, pink and intact, moist. 20:23 Neuro: Exam negative for acute changes, Orientation: is normal, Mentation: is normal, Motor: is normal, moves all fours. Vital Signs: 18:19 BP 187 / 119; Pulse 103; Resp 18; Temp 98.7; Pulse Ox 100% on R/A; iw 20:42 BP 150 / 90; Pulse 105; Resp 20; Pulse Ox 100% on R/A; em 20:47 BP 136 / 80; Pulse 103; em 23:18 BP 145 / 82; Pulse 91; Resp 18; Pulse Ox 98% on R/A; ak2 MDM: 20:05 Patient medically screened. pm1 22:20 Data reviewed: vital signs. Data interpreted: Pulse oximetry: on room air is 100 %. pm1 Interpretation: normal. Counseling: I had a detailed discussion with the patient and/or guardian regarding: the historical points, exam findings, and any diagnostic results supporting the discharge/admit diagnosis, lab results, the need for outpatient follow up. 23:26 ED course: Patient's vital signs improved with benzodiazepine given in the ER. Patient pm1 offered additional Ativan but he refused. Patient reports willingness to stop drinking, therefore will discharge home with Librium taper. 11/02 20:16 Order name: CBC with Diff; Complete Time: 21:33 pm1 11/02 20:16 Order name: BMP; Complete Time: 21:33 pm1 11/02 18:23 Order name: CT Head Brain wo Cont; Complete Time: 20:05 iw 11/02 20:16 Order name: LFT's; Complete Time: 21:33 pm1 11/02 20:16 Order name: EKG; Complete Time: 20:16 pm1 11/02 20:16 Order name: EKG - Nurse/Tech; Complete Time: 20:55 pm1 11/02 20:16 Order name: IV Saline Lock pm1 Administered Medications: 20:41 Drug: Banana Bag - (NS 0.9% 1000 ml, foLIC Acid 1 mg, Thiamine 100 mg, Multivitamin 1 em amp) Route: IV; Rate: calculated rate; Site: left antecubital; 20:41 Drug: Ativan (LORazepam) 1 mg Route: IVP; Site: left antecubital; em 20:41 Drug: NS 0.9% 1000 ml Route: IV; Rate: 1000 ml; Site: left antecubital; em Disposition: 11/03 07:40 Co-signature as Attending Physician, Demetris Oliveros MD I agree with the assessment and compa plan of care. Disposition Summary: 11/02/20 23:18 Discharge Ordered Location: Home pm1 Problem: new pm1 Symptoms: have improved pm1 Condition: Stable pm1 Diagnosis - Alcohol dependence with withdrawal pm1 Followup: pm1 - With: Emergency Department - When: As needed - Reason: Worsening of condition Followup: pm1 - With: Private Physician - When: 2 - 3 days - Reason: Recheck today's complaints, Continuance of care, Re-evaluation by your physician Discharge Instructions: - Discharge Summary Sheet pm1 - Alcohol Withdrawal Syndrome pm1 - Alcohol Abuse and Nutrition pm1 Forms: - Medication Reconciliation Form pm1 - Thank You Letter pm1 - Antibiotic Education pm1 - Prescription Opioid Use pm1 Prescriptions: - chlordiazepoxide HCl 25 mg Oral capsule - take 1 capsule by ORAL route as directed Day 1: Librium 25 mg every 6 hours pm1 scheduled. Day 2: Librium 25 mg every 8 hours scheduled. Day 3: Librium 25 mg every 12 hours scheduled. Day 4: Librium 25 mg at bedtime scheduled. Day 5: Librium 25 mg at bedtime scheduled; 11 capsule; Refills: 0, Product Selection Permitted Signatures: Dispatcher [employer] Demetris Kan MD MD cha Munoz, Edgar, RN RN em Williams, Irene, RN RN iw Marinas, Patrick, SENIOR WINDOWS ENGINEER SENIOR WINDOWS ENGINEER pm1
[2020-11-03 00:52] VITALS: TEMP 98.7
[2020-11-03 00:56] VITALS: BP 145/82; O2SAT 98
--- NOTE | 2020-11-03 11:18 | EKG ---
Test Date: 2020-11-02 Test Time: 20:53:00 Substation Operator Helper Generation: JANNY MEASUREMENT RESULTS: Intervals: Rate: 112 WV: 130 QRSD: 78 QT: 334 QTc: 455 [place]: P: 11 WV: 130 QRS: -4 T: 16 INTERPRETIVE STATEMENTS: Sinus tachycardia Minimal voltage criteria for LVH, may be normal variant Borderline ECG Compared to ECG 08/26/2019 17:46:35 Left ventricular hypertrophy now present Electronically Signed On 11-03-20 11:16:24 CDT by Abner Schmid
== END 2020-11-03 00:20 | disposition home or self-care (01) ==
LOC: ER 16:00
DX: F10.239 Alcohol dependence with withdrawal, unspecified (principal); I10 Essential (primary) hypertension; Z88.8 Allergy status to other drugs, medicaments and biological substances
CPT/HCPCS: 93005; 85025; 80048; 36415; 80076; 70450; J3411; J7030 ×2; 96374; 96375; 99284

== ENCOUNTER 2021-04-12 16:04 | Inpatient (IN) | payer OTHER ==
--- OUTSIDE RECORDS SUMMARY | 2021-04-12 16:06 | XMS REPORT | Continuity of Care Document ---
:1965 Author Organization [facility] t Address [facility] [place] [address] Care Team Providers Name Role Phone Unavailable Unavailable Unavailable Problems This patient has no known problems. Allergies, Adverse Reactions, Alerts This patient has no known allergies or adverse reactions. Medications This patient has no known medications. Procedures This patient has no known procedures. Results Test Description Test Time Test Comments Results Result Comments Source SARS-COV2/RT-PCR ([facility]) 2019-08-26 23:03:00 Test Item Value Reference Range Interpretation Comme nts SARS-COV2/RT-PCR (test code = 7559533) Not Detected Not Detected, N egative SARS-COV-2 PERFORMING LAB (test code = [facility] [id number]) Negative results do not preclude SARS-CoV-2 infection and should not be used as the sole basis for patient management decisions. Negative results must be combined with clinical observations, patient history, and epidemiological information. A false negative result may occur if a specimen is improperly collected, transported or handled.The limit of detection for this assay is 250 copies/mL.This SARS CoV-2 test is a rapid, real-time RT-PCR test intended for the qualitative detection of nucleic acid from SARS-CoV-2 in a nasopharyngeal swab specimen collected from individuals suspected of COVID-19 by their healthcare provider.This test has not been Food and Drug Administration (FDA) cleared or approved and has been authorized by FDA under an Emergency Use Authorization (EUA). This EUA will be effective until the declaration that circumstances exist justifying the authorization of the emergency use of in vitro diagnostic tests for detection and/or diagnosis of COVID-19 is terminated under Section 564(b)(2) of the Act or the EUA is revoked under Section 564(g) of the Act.Fact Sheet for Healthcare Pro viders:https://www.cepheid.com/Documents/Xpert%20Xpress%20SARS%20CoV-2/Fact%20Sh eets/3023802%78PQPQ-PQS-9%20HEALTHCARE%20PROVIDERS%20FACT%20SHEET.pdfFact Sheet for Healthcare Patients:https://www.[place]/Documents/Xpert%20Xpress%20SARS%20CoV-2/Fact%20Sheets/3023801%20SARS-COV -2%20PATIENT%20FACT%20SHEET.pdfPerforming Laboratory:[facility] [place] [address]
[2021-04-12] MEDS ORDERED: DIAZEPAM 10 MG/2 ML INJ SYRINGE ONE ×2 (16:19→18:44)
[2021-04-12] MEDS ORDERED: NA CHLORIDE 0.9% 1,000 ML ONE ×2 (16:19→18:45)
[2021-04-12 16:39] LABS: Absolute Lymphocytes (CBC) 1.7 K/uL (0.7-4.9); Hematocrit 40.7 % (39.6-49.0); Lymphocytes % 18.4 % (15.3-44.8); MPV 10.2 fL (7.6-11.3); RBC Red Blood Cell Count 4.12 M/uL (4.33-5.43)
[2021-04-12 16:45] LABS: Protime INR 1.19
--- NOTE | 2021-04-12 16:58 | RAD REPORT ---
EXAM DESCRIPTION: CT - [id number] - 04/12/2021 4:45 pm CLINICAL HISTORY: Trauma, head and neck injury. fall, head injury, seizure COMPARISON: No comparisons TECHNIQUE: Axial 5 mm thick images of the head were obtained. Axial 2 mm thick images of the cervical spine were obtained with sagittal and coronal reconstruction images generated and reviewed. All CT scans are performed using dose optimization technique as appropriate and may include automated exposure control or mA/KV adjustment according to patient size. FINDINGS: CT HEAD WITHOUT CONTRAST: No acute hemorrhage, hydrocephalus or extra-axial collection is identified.No areas of brain edema or midline shift. The paranasal sinuses and mastoids are clear.The calvarium is intact. CT CERVICAL SPINE WITHOUT CONTRAST: No fracture or subluxation.Moderate multilevel cervical degenerative spondylosis.No prevertebral soft tissues swelling is identified. IMPRESSION: No acute intracranial or cervical spine findings. Moderate multilevel cervical spondylosis.
[2021-04-12 17:14] LABS: Magnesium 1.7 mg/dL (1.8-2.4); Potassium 3.3 mmol/L (3.5-5.1)
--- NOTE | 2021-04-12 18:00 | EDPHYS ---
Physician Documentation [facility] Name: Seth Flowers Age: 56 yrs Sex: Male : 1965 Arrival Date: 04/12/2021 Time: 16:04 Bed 3 Private MD: ED Physician Homer Mendoza HPI: 04/12 16:14 This 56 yrs old Male presents to ER via EMS with complaints of Seizure. rn 16:14 The patient presents after having a single isolated seizure. Character of seizure(s): rn Loss of consciousness: Motor activity: generalized, Incontinence: none, Apnea: the patient did not experience apnea, Circulation: the patient did not experience evidence of pulse disturbance. Seizure onset: just prior to arrival. Context: occurred at home, occurred while the patient was at rest. Associated injury: Head/face:. Current symptoms: Currently, the patient is not experiencing any symptoms. The patient has not experienced similar symptoms in the past. The patient has not recently seen a physician. Son reports witnessed seizure, was at rest and was talking to him at the time. Was brief, generalized and clenched mouth with some bleeding from mouth. Patient reports heavy drinker and last drink was maybe 2 days ago. Patient with a history of alcohol withdrawal. No history of seizures. Does not take any blood thinners.. Historical: - Allergies: 16:09 Celebrex; jd3 16:09 Vioxx; jd3 - PMHx: 16:09 Diabetes - IDDM; GERD; Heart Murmur; Hypertension; Multiple Sclerosis; jd3 - Immunization history:: Adult Immunizations up to date, Client reports receiving the 2nd dose of the Covid vaccine, Flu vaccine is up to date. - Social history:: Smoking status: Patient denies any tobacco usage or history of. - Family history:: not pertinent. - Hospitalizations: : No recent hospitalization is reported. ROS: 16:14 Constitutional: Negative for fever, chills, and weight loss, Eyes: Negative for injury, rn pain, redness, and discharge, ENT: Positive for oral bleeding Neck: Negative for injury, pain, and swelling, Cardiovascular: Negative for chest pain, palpitations, and edema, Respiratory: Negative for shortness of breath, cough, wheezing, and pleuritic chest pain, Abdomen/GI: Negative for abdominal pain, nausea, vomiting, diarrhea, and constipation, Back: Negative for injury and pain, : Negative for injury, bleeding, discharge, and swelling, MS/Extremity: Negative for injury and deformity, Skin: Negative for injury, rash, and discoloration, Neuro: Negative for headache, weakness, numbness, tingling Exam: 16:14 Constitutional: This is a well developed, well nourished patient who is awake, alert, rn and in no acute distress. Head/Face: Normocephalic, no open wounds of scalp, no skull depression Eyes: Periorbital areas with no swelling, redness, or edema. ENT: Small tongue laceration approximately 1 cm right lateral tongue no active bleeding does not gape open Neck: No midline cervical tenderness Cardiovascular: Tachycardic, regular. No pulse deficits. Respiratory: No increased work of breathing, no retractions or nasal flaring. Abdomen/GI: Soft, non-tender Skin: Warm, dry with normal turgor. Normal color with no rashes, no lesions, and no evidence of cellulitis. MS/ Extremity: Pulses equal, no cyanosis. Neurovascular intact. Full, normal range of motion. Equal circumference. Neuro: Awake and alert, GCS 15, oriented to person, place,not time. Cranial nerves II-XII grossly intact. Motor strength 5/5 in all extremities. Sensory grossly intact. Cerebellar exam normal. Coarse extremity tremors 16:40 ECG was reviewed by the Attending Physician. rn Vital Signs: 16:09 BP 172 / 139; Pulse 125; Resp 19 S; Temp 97.8(TE); Pulse Ox 96% on R/A; Weight 104.33 jd3 kg (R); Height 5 ft. 8 in. (172.72 cm) (R); Pain 0/10; 16:58 BP 115 / 72; Pulse 118; Resp 19 S; Pulse Ox 98% on 2 lpm NC; jd3 18:00 BP 164 / 104; Pulse 105; Resp 19 S; Pulse Ox 98% on 2 lpm NC; jd3 20:09 BP 166 / 111; Pulse 104; Resp 16; Pulse Ox 98% ; Pain 0/10; st1 22:24 BP 178 / 124; Pulse 86; Resp 16; Pulse Ox 97% ; st1 16:09 Body Mass Index 34.97 (104.33 kg, 172.72 cm) jd3 [place] Coma Score: 16:11 Eye Response: spontaneous(4). Verbal Response: confused(4). Motor Response: obeys jd3 commands(6). Total: 14. MDM: 16:05 Patient medically screened. rn 16:26 ED course: Given extremely high blood pressure, tachycardia, seizure in the setting of rn heavy alcohol dependency, will treat as alcohol withdrawal seizure. Valium 10 mg IV ordered as well as fluids. CT head ordered to rule out traumatic finding.. 17:57 Differential diagnosis: seizure, alcohol withdrawal seizure, metabolic disorder, ETOH rn dependency, hyperglycemia, DKA. Data reviewed: vital signs, nurses notes, lab test result(s), EKG, radiologic studies, CT scan, and as a result, I will admit patient. Counseling: I had a detailed discussion with the patient and/or guardian regarding: the historical points, exam findings, and any diagnostic results supporting the discharge/admit diagnosis, lab results, radiology results, the need for further work-up and treatment in the hospital. Response to treatment: the patient's symptoms have markedly improved after treatment, and as a result, I will admit patient. Admission orders: after a detailed discussion of the patient's condition and case, the admit orders are written by me. 04/12 16:11 Order name: CBC with Diff; Complete Time: 16:43 rn 04/12 16:11 Order name: Basic Metabolic Panel; Complete Time: 17:16 04/12 16:11 Order name: Protime (+inr); Complete Time: 17:02 rn 04/12 16:11 Order name: Ptt, Activated; Complete Time: 17:02 04/12 16:12 Order name: Magnesium; Complete Time: 17:16 rn 04/12 16:12 Order name: COVID-19 SARS RT PCR (Document "Date of Onset" if Symptomatic); Complete rn Time: 17:46 04/12 16:42 Order name: ETOH Level rn 04/12 16:43 Order name: Alcohol Serum/Plasma; Complete Time: 17:46 EDGA 04/13 01:39 Order name: Glucose, Ancillary Testing EDGA 04/13 04:41 Order name: CBC with Automated Diff EDMS 04/13 05:26 Order name: Hemoglobin A1c EDGA 04/13 05:35 Order name: Comprehensive Metabolic Panel EDGA 04/13 05:35 Order name: Phosphorus EDGA 04/13 05:35 Order name: Lipid Profile EDMS 04/12 16:11 Order name: CT Head C Spine; Complete Time: 17:02 rn 04/13 05:35 Order name: T4 Free EDMS 04/13 05:35 Order name: Magnesium EDMS 04/13 05:35 Order name: Thyroid Stimulating Hormone EDMS 04/13 10:04 Order name: Glucose, Ancillary Testing EDMS 04/13 13:50 Order name: Glucose, Ancillary Testing EDMS 04/13 18:44 Order name: Glucose, Ancillary Testing EDMS 04/14 01:24 Order name: Glucose, Ancillary Testing EDMS 04/14 04:23 Order name: CBC with Automated Diff EDMS 04/14 04:56 Order name: Comprehensive Metabolic Panel EDMS 04/14 04:56 Order name: Phosphorus EDMS 04/14 04:56 Order name: Magnesium EDMS 04/14 06:52 Order name: Glucose, Ancillary Testing EDMS 04/12 16:11 Order name: IV Start; Complete Time: 16:13 rn 04/12 16:11 Order name: EKG; Complete Time: 16:12 rn 04/12 16:11 Order name: EKG - Nurse/Tech; Complete Time: 16:13 rn EC:40 Rate is 121 beats/min. Rhythm is regular. QRS [place] is Normal. [place] interval is normal. rn QRS interval is normal. QT interval is normal. No Q waves. T waves are Normal. No ST changes noted. Clinical impression: Sinus tachycardia. Interpreted by me. Administered Medications: 16:34 Drug: NS 0.9% 1000 ml Route: IV; Rate: 1000 ml; Site: right antecubital; jd3 16:34 Drug: Valium (diazepam) 10 mg Route: IVP; Site: right antecubital; jd3 19:04 Drug: Valium (diazepam) 5 mg Route: IVP; Site: right antecubital; ll3 19:04 Drug: Insulin Regular Human 10 units {Co-Signature: [email or web address] (Maggy Waltno RN).} Route: ll3 Sub-Q; Site: abdomen; 19:05 Drug: Insulin Regular Human 10 units {Co-Signature: [email or web address] (Maggy Walton RN).} Route: ll3 IVP; Site: right antecubital; 19:45 Drug: Banana Bag - (NS 0.9% 1000 ml, foLIC Acid 1 mg, Thiamine 100 mg, Multivitamin 1 jd3 amp) Route: IV; Rate: calculated rate; Site: right antecubital; 22:30 Drug: Magnesium Sulfate 1 grams Route: IVPB; Infused Over: 1 hrs; Site: right st1 antecubital; 04/13 00:44 Drug: Potassium Chloride 20 mEq Route: IV; Rate: calculated rate; Site: right st1 antecubital; Point of Care Testing: Blood Glucose: : Blood Glucose: 169 mg/dL; st1 Ranges: Critical Glucose Levels:Adult <50 mg/dl or >400 mg/dl <40 mg/dl or >180 mg/dl Disposition Summary: 04/12/21 17:59 Hospitalization Ordered Hospitalization Status: Inpatient Admission rn Provider: Dameon Orellana rn Condition: Fair rn Problem: new rn Symptoms: have improved rn Bed/Room Type: Standard rn Location: [facility] ER HOLD(04/12/21 21:53) cg Room Assignment: ERHOLD-(04/12/21 21:53) cg Diagnosis - Alcohol dependence with withdrawal - Seizure rn - Hyperglycemia, unspecified rn - Hypokalemia rn - Hypomagnesemia rn Forms: - Medication Reconciliation Form rn - SBAR form energy attorney time excluding procedures: 04/12 17:57 Critical care time: Bedside Care: 30 minutes, Consultation: 5 minutes, Family rn Intervention: 5 minutes. Total time: 40 minutes Signatures: Dispatcher [employer] Homer Yoo MD MD rn Garcia, Cindy RN RN Quincy Mendenhall RN RN Juan A Bautista RN RN ll3 Kaylah Hernandez RN RN st1 Maggy Walton RN [email or web address] Corrections: (The following items were deleted from the chart) : 17:59 Intensive Care Unit rn cg :53 17:59 rn cg
--- NOTE | 2021-04-12 18:00 | ER ---
Nurse's Notes [facility] Name: Seth Flowers Age: 56 yrs Sex: Male : 1965 Arrival Date: 04/12/2021 Time: 16:04 Bed 3 Private MD: Diagnosis: Alcohol dependence with withdrawal-Seizure;Hyperglycemia, unspecified;Hypokalemia;Hypomagnesemia Presentation: 04/12 16:04 Chief complaint: EMS states: "Pt had a seizure to day that lasted for a few min. pt had jd3 a fall as a result of seizure hitting right side of head. the pt was unconscious on our arrival with snoring respirations because of the position he was laying in. when we got him into the truck he started waking up more and was becoming combative so we gave 2.5 of Versed. we placed nasal canula on at 2 L and 18 G IV to the right AC. BGL of 357. pt started waking up after the versed and has been cooperative and starting to respond appropriately.". Coronavirus screen: At this time, the client does not indicate any symptoms associated with coronavirus-19. Ebola Screen: Patient negative for fever greater than or equal to 101.5 degrees Fahrenheit, and additional compatible Ebola Virus Disease symptoms. Initial Sepsis Screen: Does the patient meet any 2 criteria? No. Patient's initial sepsis screen is negative. Does the patient have a suspected source of infection? No. Patient's initial sepsis screen is negative. Risk Assessment: Do you want to hurt yourself or someone else? Patient reports no desire to harm self or others. Onset of symptoms was April 12, 2021. 16:04 Method Of Arrival: EMS: [facility] jd3 16:04 Acuity: SATHISH 2 jd3 Historical: - Allergies: 16:09 Celebrex; jd3 16:09 Vioxx; jd3 - PMHx: 16:09 Diabetes - IDDM; GERD; Heart Murmur; Hypertension; Multiple Sclerosis; jd3 - Immunization history:: Adult Immunizations up to date, Client reports receiving the 2nd dose of the Covid vaccine, Flu vaccine is up to date. - Social history:: Smoking status: Patient denies any tobacco usage or history of. - Family history:: not pertinent. - Hospitalizations: : No recent hospitalization is reported. Screenin:10 Abuse screen: Denies threats or abuse. Nutritional screening: No deficits noted. jd3 Tuberculosis screening: No symptoms or risk factors identified. Fall Risk Ambulatory Aid- None/Bed Rest/Nurse Assist (0 pts). Gait- Normal/Bed Rest/Wheelchair (0 pts) Mental Status- Oriented to own ability (0 pts). Total Shine Fall Scale indicates No Risk (0-24 pts). Assessment: 16:11 General: Appears in no apparent distress. comfortable, Behavior is calm, cooperative, jd3 appropriate for age. Pain: Denies pain. Neuro: Level of Consciousness is awake, alert, obeys commands, Oriented to person, place, Single Stroke Preformer are equal bilaterally Moves all extremities. Full function Speech is normal, Facial symmetry appears normal, Pupils are PERRLA. Cardiovascular: Heart tones present Capillary refill < 3 seconds Patient's skin is warm and dry. Rhythm is regular. Respiratory: Airway is patent Respiratory effort is even, unlabored, Respiratory pattern is regular, symmetrical, Breath sounds are clear bilaterally. Denies cough, shortness of breath. GI: No signs and/or symptoms were reported involving the gastrointestinal system. : No signs and/or symptoms were reported regarding the genitourinary system. EENT: No signs and/or symptoms were reported regarding the EENT system. Derm: Skin is intact, Skin is dry, Skin is normal, Skin temperature is warm. Musculoskeletal: Circulation, motion, and sensation intact. Range of motion: intact in all extremities. 16:58 Reassessment: Patient appears in no apparent distress at this time. No changes from jd3 previously documented assessment. Patient and/or family updated on plan of care and expected duration. Pain level reassessed. Patient is alert, oriented x 3, equal unlabored respirations, skin warm/dry/pink. 17:50 Reassessment: Patient appears in no apparent distress at this time. No changes from jd3 previously documented assessment. Patient and/or family updated on plan of care and expected duration. Pain level reassessed. Patient is alert, oriented x 3, equal unlabored respirations, skin warm/dry/pink. 18:50 Reassessment: Patient appears in no apparent distress at this time. Patient and/or d3 family updated on plan of care and expected duration. Pain level reassessed. Patient is alert, oriented x 3, equal unlabored respirations, skin warm/dry/pink. pt resting in bed awaiting admission Patient states feeling better. Vital Signs: 16:09 BP 172 / 139; Pulse 125; Resp 19 S; Temp 97.8(TE); Pulse Ox 96% on R/A; Weight 104.33 jd3 kg (R); Height 5 ft. 8 in. (172.72 cm) (R); Pain 0/10; 16:58 BP 115 / 72; Pulse 118; Resp 19 S; Pulse Ox 98% on 2 lpm NC; jd3 18:00 BP 164 / 104; Pulse 105; Resp 19 S; Pulse Ox 98% on 2 lpm NC; jd3 20:09 BP 166 / 111; Pulse 104; Resp 16; Pulse Ox 98% ; Pain 0/10; st1 22:24 BP 178 / 124; Pulse 86; Resp 16; Pulse Ox 97% ; st1 16:09 Body Mass Index 34.97 (104.33 kg, 172.72 cm) jd3 Jose Coma Score: 16:11 Eye Response: spontaneous(4). Verbal Response: confused(4). Motor Response: obeys jd3 commands(6). Total: 14. ED Course: 16:04 Patient arrived in ED. ds1 16:04 Quincy Wheeler, BLAYNE is Primary Nurse. jd3 16:05 Homer Mendoza MD is Attending Physician. rn 16:09 Triage completed. jd3 16:10 Arm band placed on. EKG completed in triage. Results shown to MD. jd3 16:10 Patient has correct armband on for positive identification. Bed in low position. Call jd3 light in reach. Side rails up X2. Adult w/ patient. Seizure precautions initiated. top collar maker on. Pulse ox on. NIBP on. 16:45 CT Head C Spine In Process Unspecified. EDMS 17:00 Maintain EMS IV. Dressing intact. Good blood return noted. Site clean \\T\\ dry. Gauge \\T\\ smith 3 site: 18 G right AC. 17:58 Dameon Orellana MD is Hospitalizing Provider. rn 20:05 Primary Nurse role handed off by Quincy Wheeler, RN st1 20:05 Kaylah Hernandez, BLAYNE is Primary Nurse. st1 20:10 No provider procedures requiring assistance completed. st1 01/11 08:17 Maggy Baumann, RN is Primary Nurse. jh6 04/14 07:06 Primary Nurse role handed off by Maggy Baumann RN bp 07:06 Michael Baxter, RN is Primary Nurse. bp Administered Medications: 04/12 16:34 Drug: NS 0.9% 1000 ml Route: IV; Rate: 1000 ml; Site: right antecubital; jd3 16:34 Drug: Valium (diazepam) 10 mg Route: IVP; Site: right antecubital; jd3 19:04 Drug: Valium (diazepam) 5 mg Route: IVP; Site: right antecubital; ll3 19:04 Drug: Insulin Regular Human 10 units {Co-Signature: [email or web address] (Maggy Walton RN).} Route: ll3 Sub-Q; Site: abdomen; 19:05 Drug: Insulin Regular Human 10 units {Co-Signature: [email or web address] (Maggy Walton RN).} Route: ll3 IVP; Site: right antecubital; 19:45 Drug: Banana Bag - (NS 0.9% 1000 ml, foLIC Acid 1 mg, Thiamine 100 mg, Multivitamin 1 jd3 amp) Route: IV; Rate: calculated rate; Site: right antecubital; 22:30 Drug: Magnesium Sulfate 1 grams Route: IVPB; Infused Over: 1 hrs; Site: right st1 antecubital; 04/13 00:44 Drug: Potassium Chloride 20 mEq Route: IV; Rate: calculated rate; Site: right st1 antecubital; Point of Care Testing: Blood Glucose: 01:31 Blood Glucose: 169 mg/dL; st1 Ranges: Outcome: 04/12 17:59 Decision to Hospitalize by Provider. rn 04/14 15:26 Patient left the ED. bp Signatures: Dispatcher [employer] EDSD Nelda Link ds1 Homer Mendoza MD MD rn Davies, Jonathon, RN RN jMichael Copeland, BLAYNE RN bp Juan A Khan, RN RN 3 Maggy Baumann RN RN 6 Kaylah Hernandez RN RN st1 Maggy Walton RN jg9 Corrections: (The following items were deleted from the chart) 04/12 16:58 16:11 Cardiovascular: Capillary refill < 3 seconds Patient's skin is warm and dry. jd3 Rhythm is regular jd3 16:58 16:11 Respiratory: Airway is patent Respiratory effort is even, unlabored, Respiratory jd3 pattern is regular, symmetrical, Denies cough, shortness of breath jd3
[2021-04-12] MEDS ORDERED: INSULIN -REGULAR HUMAN 50 UNIT/0.5 ML ML ONE (18:43)
[2021-04-12] MEDS ORDERED: MAGNESIUM SULFATE 1 gm IVPB 1 GM/100 ML BAG IV ONE (18:45)
[2021-04-12] MEDS ORDERED: KCL 20 MEQ/100 mL IVPB 100 ML IV ONE (18:46)
[2021-04-12] MEDS ORDERED: FOLIC ACID 5 MG/ML VIAL ONE (18:49)
[2021-04-12] MEDS ORDERED: THIAMINE 200 MG/2 ML INJ ONE (18:50)
[2021-04-12] MEDS ORDERED: MULTIVITAMINS 10 ML VIAL (INJ) IV ONE (18:50)
--- NOTE | 2021-04-12 19:59 | P.HP ---
Certification for Inpatient Patient admitted to: Inpatient With expected LOS: >2 Midnights Patient will require the following post-hospital care: None Practitioner: I am a practitioner with admitting privileges, knowledge of patient current condition, hospital course, and medical plan of care. Services: Services provided to patient in accordance with Admission requirements found in Title 42 Section 412.3 of the Code of Federal Regulations Patient History Date of Service: 04/12/21 Reason for admission: alcohol withdrawal, seizures History of Present Illness: Mr. Flowers is a 56 yo M with history of alcohol abuse, T2DM, HTN, MS, GERD who presents after witnessed seizure today at son's house. He does not remember the entire event. Per report, he had a single generalized seizure with associated loss of consciousness. He clenched his mouth and has a tongue laceration on the right side. He says he feel and hit his head. He reports dizziness and li ghtheadedness at time of seizure. He was conscious, but verbally incoherent when EMS arrived. Denies nausea, vomiting. No episode of incontinence. His last drink was 2 days ago. He has gone through alcohol withdrawal before but has never had a seizure prior. CT Head wnl. L 3.3 GFR 77 Mg 1.7 Glu 531 Allergies rofecoxib [From Vioxx] Allergy (Verified 07/28/16 09:28) Rash No K Allergy (Uncoded 12/14/16 01:01) Unknown Home Medications: Metformin HCl [Glucophage] 1,000 mg PO BID 05/19/16 Omeprazole 40 mg PO DAILY 05/19/16 Simvastatin [Zocor*] 40 mg PO BEDTIME 05/19/16 lisinopriL [Prinivil*] 20 mg PO [id number] 05/19/16 Montelukast [Singulair*] 10 mg PO DAILY 08/26/19 Sildenafil Citrate 20 mg PO PRN PRN 08/26/19 Magnesium Oxide 400 mg PO BID #10 tablet 08/27/19 Metoprolol Succinate [Toprol Xl*] 50 mg PO DAILY #30 tab 08/27/19 - Past Medical/Surgical History Diabetic: Yes -: Hypertension, Diabetes mellitus -: Hyperlipidemia -: Peripheral neuropathy -: Obesity -: History of GERD -: Diabetes mellitus -: cataract sx -: cholecystectomy - Family History Father -: Cancer Notes: prostate CA Mother -: Heart disease Brother -: GI disease Notes: crohn's, ulcerative colitis - Social History Smoking Status: Never smoker Alcohol use: Yes CD- Drugs: No Caffeine use: Yes Place of Residence: Home Review of Systems 10-point ROS is otherwise unremarkable General: Unremarkable Eyes: Unremarkable ENT: Unremarkable Respiratory: Unremarkable Cardiovascular: Unremarkable Gastrointestinal: Unremarkable Genitourinary: Unremarkable Musculoskeletal: Unremarkable Integumentary: Unremarkable Neurological: As per HPI Lymphatics: Unremarkable Physical Examination - Physical Exam General: Alert, In no apparent distress HEENT: Atraumatic, PERRLA, Mucous membr. moist/pink, Other (laceration on right side of tongue), EOMI, Sclerae nonicteric Neck: Supple, 2+ carotid pulse no bruit, No LAD, Without JVD or thyroid abnormality Respiratory: Clear to auscultation bilaterally, Normal air movement Cardiovascular: Normal S1 S2, Irregular heart rate/rhythm Gastrointestinal: Normal bowel sounds, No tenderness Musculoskeletal: No tenderness Integumentary: No rashes Neurological: Normal speech, Normal strength at 5/5 x4 extr, Normal tone, Normal affect Lymphatics: No axilla or inguinal lymphadenopathy - Studies Laboratory Data (last 24 hrs) 04/12/21 16:15: PT 13.7 H, INR 1.19, APTT 35.5 04/12/21 16:15: Sodium 138, Potassium 3.3 L, BUN 9, Creatinine 1.01, Glucose 531 H*, Magnesium 1.7 L 04/12/21 16:15: WBC 9.20, Hgb 13.4 L, Hct 40.7, Plt Count 153 Assessment and Plan - Problems (Diagnosis) (1) Multiple sclerosis Current Visit: Yes Status: Chronic (2) GERD (gastroesophageal reflux disease) Current Visit: Yes Status: Chronic Qualifiers: Esophagitis presence: without esophagitis Qualified Code(s): K21.9 - Gastro-esophageal reflux disease without esophagitis (3) Alcohol withdrawal seizure Current Visit: Yes Status: Acute Qualifiers: Complication of substance-induced condition: with unspecified complication Qualified Code(s): F10.239 - Alcohol dependence with withdrawal, unspecified; R56.9 - Unspecified convulsions (4) Diabetes mellitus Current Visit: No Status: Chronic Qualifiers: Diabetes mellitus type: type 2 Diabetes mellitus longterm insulin use: without longterm use Diabetes mellitus complication status: without complication Qualified Code(s): E11.9 - Type 2 diabetes mellitus without complications (5) Hypertension Current Visit: No Status: Chronic Qualifiers: Hypertension type: primary hypertension Qualified Code(s): I10 - Essential (primary) hypertension - Plan ICU CIWA protocol continue IV valium, PO librium PRN aggressive sliding scale insulin and accuchecks, A1c pending magnesium and potassium replacement continue banana bag hydralazine PRN for BP spikes reconcile and continue hgome medications DVT ppx Discharge Plan: Home Plan to discharge in: 48 Hours - Advance Directives Does patient have a Living Will: No Does patient have a Durable POA for Healthcare: No - Code Status/Comfort Care Code Status Assessed: Yes (full code ) Critical Care: Yes Time Spent Managing Pts Care (In Minutes): 70
[2021-04-13] MEDS ORDERED: DIAZEPAM 10 MG/2 ML INJ SYRINGE IV PRN ×2 (01:14)
[2021-04-13] MEDS ORDERED: ONDANSETRON 4 MG/2 ML VIAL IV PRN (01:14)
[2021-04-13] MEDS: INSULIN -REGULAR HUMAN 50 UNIT/0.5 ML ML SQ SCH ×4 (01:14→18:00)
[2021-04-13] MEDS ORDERED: chlordiazePOXIDE HCl 5 MG CAP PO PRN (01:14)
[2021-04-13] MEDS: ACETAMINOPHEN 500 MG TAB PO PRN ×2 (01:22→18:32)
[2021-04-13] MEDS ORDERED: ACETAMINOPHEN 500 MG TAB ONE ×3 (01:23→23:30)
[2021-04-13] MEDS ORDERED: INSULIN -REGULAR HUMAN 50 UNIT/0.5 ML ML ONE ×4 (01:38→18:19)
[2021-04-13 01:48] VITALS: BMI 34.2
[2021-04-13 04:37] LABS: Absolute Lymphocytes (CBC) 1.9 K/uL (0.7-4.9); Hematocrit 36.8 % (39.6-49.0); Lymphocytes % 15.8 % (15.3-44.8); MPV 9.7 fL (7.6-11.3); RBC Red Blood Cell Count 3.82 M/uL (4.33-5.43)
[2021-04-13 05:33] LABS: ALT/SGPT 34 U/L (12-78); AST/SGOT 54 U/L (15-37); Albumin 2.8 g/dL (3.4-5.0); Alkaline Phosphatase 89 U/L (45-117); BUN Blood Urea Nitrogen 8 mg/dL (7-18); Bicarbonate 22 mmol/L (21-32); Bilirubin Total 0.8 mg/dL (0.2-1.0); Glucose Level 161 mg/dL (74-106); HDL Cholesterol 25 mg/dL (40-60); LDL Cholesterol, Calculated 68 (<130); Magnesium 1.6 mg/dL (1.8-2.4); Phosphorus 2.4 mg/dL (2.5-4.9); Sodium Level 140 mmol/L (136-145)
[2021-04-13 05:34] LABS: Potassium 2.8 mmol/L (3.5-5.1)
[2021-04-13] MEDS ORDERED: POTASSIUM CL SA 10 MEQ TAB PO ONE ×2 (05:35→06:38)
[2021-04-13] MEDS: KCL 20 MEQ/100 mL IVPB 20 MEQ/100 ML BAG IV SCH ×2 (06:00→08:00)
[2021-04-13] MEDS ORDERED: KCL 20 MEQ/100 mL IVPB 100 ML IV ONE (06:39)
[2021-04-13] MEDS ORDERED: NA CHLORIDE 0.9% 1,000 ML ONE ×3 (08:13→20:55)
[2021-04-13] MEDS ORDERED: HYDRALAZINE HCL 20 MG/ML VIAL ONE ×2 (08:26→13:42)
[2021-04-13] MEDS: HYDRALAZINE HCL 20 MG/ML VIAL IV PRN ×2 (08:30→13:49)
[2021-04-13] MEDS: FOLIC ACID 1 MG, MULTIVITAMINS INJ 10 ML, THIAMINE HCL 100 MG in NA CHLORIDE 0.9% 1,000 ML IV SCH (09:00)
[2021-04-13] MEDS: ENOXAPARIN 40 MG/0.4 ML SQ SCH (09:00)
[2021-04-13] MEDS ORDERED: ENOXAPARIN 40 MG/0.4 ML SQ ONE (10:05)
[2021-04-13] MEDS ORDERED: PNEUMOCOCCAL VACCINE 0.5 ML IMVAC ONE (12:00)
[2021-04-13] MEDS ORDERED: INFLUENZA VACCINE (for 6+ mo) 0.5 ML DOSE IMVAC ONE (12:00)
[2021-04-13] MEDS: AMLODIPINE 10 MG TAB PO SCH (15:55)
[2021-04-13] MEDS: NA CHLORIDE 0.9% 1,000 ML IV SCH (16:00)
[2021-04-13] MEDS: INSULIN GLARGINE 100 UNIT/ML SQ SCH (16:01)
--- NOTE | 2021-04-13 16:01 | P.PN ---
Subjective Date of Service: 04/13/21 Chief Complaint: alcohol withdrawal, seizures Patient complaining hand tremors. No seizures since admission. Blood pressure is elevated. Physical Examination - Vital Signs Temperature: 97.6 F Blood Pressure: 183/97 Pulse: 90 Respirations: 16 Pulse Ox (%): 98 - Physical Exam General: Alert, In no apparent distress, Oriented x3 HEENT: Mucous membr. moist/pink, Sclerae nonicteric Neck: Supple, JVD not distended Respiratory: Clear to auscultation bilaterally, Normal air movement Cardiovascular: No edema, Normal S1 S2, Other (Tachycardia) Gastrointestinal: Soft and benign, Non-distended, No tenderness Musculoskeletal: No swelling, No tenderness Integumentary: No rashes, No breakdown, No cyanosis Neurological: Normal speech, Normal strength at 5/5 x4 extr, Cranial nerves 3-12 intact Lymphatics: No axilla or inguinal lymphadenopathy - Studies Laboratory Data (last 24 hrs) 04/12/21 16:15: PT 13.7 H, INR 1.19, APTT 35.5 04/12/21 16:15: Sodium 138, Potassium 3.3 L, BUN 9, Creatinine 1.01, Glucose 531 H*, Magnesium 1.7 L 04/12/21 16:15: WBC 9.20, Hgb 13.4 L, Hct 40.7, Plt Count 153 Assessment And Plan - Current Problems (Diagnosis) (1) Alcohol withdrawal seizure Current Visit: Yes Status: Acute Qualifiers: Complication of substance-induced condition: with unspecified complication Qualified Code(s): F10.239 - Alcohol dependence with withdrawal, unspecified; R56.9 - Unspecified convulsions (2) GERD (gastroesophageal reflux disease) Current Visit: Yes Status: Chronic Qualifiers: Esophagitis presence: without esophagitis Qualified Code(s): K21.9 - Gastro-esophageal reflux disease without esophagitis (3) Diabetes mellitus Current Visit: No Status: Chronic Qualifiers: Diabetes mellitus type: type 2 Diabetes mellitus technician terminal and repeater insulin use: without senior living use Diabetes mellitus complication status: without complication Qualified Code(s): E11.9 - Type 2 diabetes mellitus without complications (4) Hypertension Current Visit: No Status: Chronic Qualifiers: Hypertension type: primary hypertension Qualified Code(s): I10 - Essential (primary) hypertension - Plan Continue CIWA with Librium and diazepam. Monitor and correct electrolytes. No seizures since admission. No indication for antiepileptics. IV hydration with banana bag. Amlodipine for hypertension Resume home dose lisinopril. Seizure precautions. Insulin sliding scale for glucose management. Add Lantus.
[2021-04-13] MEDS ORDERED: lisinopriL 20 MG TAB ONE (16:12)
[2021-04-13] MEDS ORDERED: AMLODIPINE 10 MG TAB ONE (16:12)
[2021-04-13] MEDS: lisinopriL 20 MG TAB PO SCH (16:17)
[2021-04-13] MEDS ORDERED: INSULIN GLARGINE 100 UNIT/ML SQ ONE (16:25)
[2021-04-13] MEDS ORDERED: PANTOPRAZOLE 40MG TABLET PO ONE ×2 (20:56→21:00)
[2021-04-14 01:10] VITALS: TEMP 98.4
[2021-04-14] MEDS ORDERED: INSULIN -REGULAR HUMAN 50 UNIT/0.5 ML ML ONE ×2 (01:19→06:45)
[2021-04-14] MEDS: ACETAMINOPHEN 500 MG TAB PO PRN ×2 (01:25→04:22)
[2021-04-14] MEDS ORDERED: ACETAMINOPHEN 500 MG TAB ONE ×2 (01:27→04:22)
[2021-04-14 03:52] LABS: Absolute Lymphocytes (CBC) 1.3 K/uL (0.7-4.9); Hematocrit 38.5 % (39.6-49.0); Lymphocytes % 12.2 % (15.3-44.8); MPV 9.2 fL (7.6-11.3)
[2021-04-14 04:52] LABS: ALT/SGPT 34 U/L (12-78); AST/SGOT 48 U/L (15-37); Albumin 2.8 g/dL (3.4-5.0); Alkaline Phosphatase 91 U/L (45-117); BUN Blood Urea Nitrogen 5 mg/dL (7-18); Bicarbonate 22 mmol/L (21-32); Bilirubin Total 0.8 mg/dL (0.2-1.0); Glucose Level 232 mg/dL (74-106); Magnesium 1.5 mg/dL (1.8-2.4); Phosphorus 1.7 mg/dL (2.5-4.9); Sodium Level 136 mmol/L (136-145)
[2021-04-14 04:56] LABS: Potassium 2.9 mmol/L (3.5-5.1)
[2021-04-14] MEDS: lisinopriL 20 MG TAB PO SCH (06:00)
[2021-04-14] MEDS ORDERED: lisinopriL 20 MG TAB PO SCH (06:00)
[2021-04-14] MEDS ORDERED: lisinopriL 20 MG TAB ONE (06:46)
[2021-04-14] MEDS: INSULIN -REGULAR HUMAN 50 UNIT/0.5 ML ML SQ SCH ×3 (06:48→06:49)
[2021-04-14] MEDS ORDERED: MAGNESIUM SULFATE 1 gm IVPB 1 GM/100 ML BAG IV ONE ×2 (07:40→09:47)
[2021-04-14] MEDS ORDERED: POTASSIUM 25 MEQ EFFERV TAB PO ONE (07:42)
--- NOTE | 2021-04-14 07:51 | EKG ---
Test Date: 2021-04-12 Test Time: 16:07:21 Acute Care Nursing Assistant: NATHANIEL MEASUREMENT RESULTS: Intervals: Rate: 121 ND: 132 QRSD: 78 QT: 336 QTc: 477 Stanley: P: 45 ND: 132 QRS: 8 T: 32 INTERPRETIVE STATEMENTS: Sinus tachycardia Possible Left atrial enlargement Nonspecific T wave abnormality Abnormal ECG Compared to ECG 11/02/2020 20:53:00 T-wave abnormality now present Left ventricular hypertrophy no longer present Electronically Signed On 04-14-21 07:46:07 [facility] by Abner Schmid
[2021-04-14] MEDS: NA CHLORIDE 0.9% 1,000 ML IV SCH ×2 (08:00)
[2021-04-14] MEDS ORDERED: POTASS/SODIUM PHOSPHATE 1 PKT POWD.PACK PO ONE (08:00)
[2021-04-14 08:58] VITALS: O2SAT 98
[2021-04-14] MEDS: ENOXAPARIN 40 MG/0.4 ML SQ SCH (09:00)
[2021-04-14] MEDS: FOLIC ACID 1 MG, MULTIVITAMINS INJ 10 ML, THIAMINE HCL 100 MG in NA CHLORIDE 0.9% 1,000 ML IV SCH (09:00)
[2021-04-14] MEDS: INSULIN GLARGINE 100 UNIT/ML SQ SCH (09:00)
[2021-04-14] MEDS: AMLODIPINE 10 MG TAB PO SCH (09:00)
[2021-04-14] MEDS ORDERED: POTASS/SODIUM PHOSPHATE 1 PKT POWD.PACK ONE (09:46)
[2021-04-14] MEDS ORDERED: POTASSIUM 25 MEQ EFFERV TAB ONE (09:47)
[2021-04-14] MEDS ORDERED: AMLODIPINE 10 MG TAB ONE (09:47)
[2021-04-14] MEDS ORDERED: INSULIN GLARGINE 100 UNIT/ML SQ ONE (09:49)
[2021-04-14] MEDS ORDERED: ENOXAPARIN 40 MG/0.4 ML SQ ONE (09:49)
--- NOTE | 2021-04-14 12:02 | P.DS ---
Admission Date: 04/12/21 Discharge Date: 04/14/21 Disposition: ROUTINE DISCHARGE Discharge Condition: FAIR Reason for Admission: alcohol withdrawal, seizures - Problems (1) Alcohol withdrawal seizure Current Visit: Yes Status: Acute Qualifiers: Complication of substance-induced condition: with unspecified complication Qualified Code(s): F10.239 - Alcohol dependence with withdrawal, unspecified; R56.9 - Unspecified convulsions (2) GERD (gastroesophageal reflux disease) Current Visit: Yes Status: Chronic Qualifiers: Esophagitis presence: without esophagitis Qualified Code(s): K21.9 - Gastro-esophageal reflux disease without esophagitis (3) Diabetes mellitus Current Visit: No Status: Chronic Qualifiers: Diabetes mellitus type: type 2 Diabetes mellitus halfway insulin use: without firefighter use Diabetes mellitus complication status: without complication Qualified Code(s): E11.9 - Type 2 diabetes mellitus without complications (4) Hypertension Current Visit: No Status: Chronic Qualifiers: Hypertension type: primary hypertension Qualified Code(s): I10 - Essential (primary) hypertension Brief History of Present Illness: Mr. Flowers is a 56 yo M with history of alcohol abuse, T2DM, HTN, MS, GERD who presents after witnessed seizure today at son's house. He does not remember the entire event. Per report, he had a single generalized seizure with associated loss of consciousness. He clenched his mouth and has a tongue laceration on the right side. He says he feel and hit his head. He reports dizziness and lightheadedness at time of seizure. He was conscious, but verbally incoherent when EMS arrived. Denies nausea, vomiting. No episode of incontinence. His last drink was 2 days ago. He has gone through alcohol withdrawal before but has never had a seizure prior. CT Head wnl. L 3.3 GFR 77 Mg 1.7 Glu 531. Hospital Course: Patient was admitted to the medical floor and started on CIWA protocol with Librium, banana bag. Patient did not experience any seizure episode during the hospital stay. He remained awake and alert. He was reporting tremor in the hands which resolved. Patient given controversial report regarding the last time he drank alcohol. He told me his last alcohol drink was about 3 weeks ago and he has started on an AA program. On the other hand he told the admitting provider that his last alcohol drink was 2 days ago. Patient describes what appears to be seizures in the right hand progressing to generalized tonic-clonic seizures. Case discussed with neurology who recommend antiepileptic if his alcohol drink was more than 3 weeks ago. He is prescribed Keppra 500 mg twice daily, folic acid and thiamine. He is informed to follow-up with neurology within 1 week for further evaluation. He is also informed not to drive for at least 3 months. His blood pressure was elevated during the hospital stay. His antihypertensives were resumed and amlodipine added for better blood pressure control. Vital Signs/Physical Exam: Temp Pulse Resp BP Pulse Ox 98.4 F 98 H 17 151/89 H 97 04/14/21 04:00 04/14/21 08:00 04/14/21 08:00 04/14/21 08:00 04/14/21 08:00 General: Alert, In no apparent distress, Oriented x3 HEENT: Mucous membr. moist/pink Neck: Supple Respiratory: Clear to auscultation bilaterally, Normal air movement Cardiovascular: No edema, Regular rate/rhythm, Normal S1 S2 Gastrointestinal: Soft and benign, Non-distended Musculoskeletal: No swelling Integumentary: No rashes Neurological: Normal strength at 5/5 x4 extr, Cranial nerves 3-12 intact Laboratory Data at Discharge: WBC 10.90 K/uL (4.3-10.9) 04/14/21 03:22 Hgb 13.1 g/dL (13.6-17.9) L 04/14/21 03:22 Hct 38.5 % (39.6-49.0) L 04/14/21 03:22 Plt Count 149 K/uL (152-406) L 04/14/21 03:22 PT 13.7 SECONDS (9.5-12.5) H 04/12/21 16:15 INR 1.19 04/12/21 16:15 APTT 35.5 SECONDS (24.3-36.9) 04/12/21 16:15 Sodium 136 mmol/L (136-145) 04/14/21 03:22 Potassium 2.9 mmol/L (3.5-5.1) L* 04/14/21 03:22 BUN 5 mg/dL (7-18) L 04/14/21 03:22 Creatinine 0.48 mg/dL (0.55-1.3) L 04/14/21 03:22 Glucose 232 mg/dL (74-106) H 04/14/21 03:22 Phosphorus 1.7 mg/dL (2.5-4.9) L 04/14/21 03:22 Magnesium 1.5 mg/dL (1.8-2.4) L 04/14/21 03:22 Total Bilirubin 0.8 mg/dL (0.2-1.0) 04/14/21 03:22 AST 48 U/L (15-37) H 04/14/21 03:22 ALT 34 U/L (12-78) 04/14/21 03:22 Alkaline Phosphatase 91 U/L (45-117) 04/14/21 03:22 Triglycerides 150 mg/dL (<150) 04/13/21 04:06 Cholesterol 123 mg/dL (<200) 04/13/21 04:06 HDL Cholesterol 25 mg/dL (40-60) L 04/13/21 04:06 Cholesterol/HDL Ratio 4.92 04/13/21 04:06 Home Medications: Metformin HCl [Glucophage] 1,000 mg PO BID 05/19/16 Omeprazole 40 mg PO DAILY 05/19/16 Simvastatin [Zocor*] 40 mg PO BEDTIME 05/19/16 lisinopriL [Prinivil*] 20 mg PO [id number] 05/19/16 Montelukast [Singulair*] 10 mg PO DAILY 08/26/19 Sildenafil Citrate 20 mg PO PRN PRN 08/26/19 Magnesium Oxide 400 mg PO BID #10 tablet 08/27/19 Metoprolol Succinate [Toprol Xl*] 50 mg PO DAILY #30 tab 08/27/19 Amlodipine [Norvasc*] 10 mg PO DAILY #30 tab 04/14/21 Folic Acid 1 mg PO DAILY #30 tablet 04/14/21 Thiamine HCl 100 mg PO DAILY #30 tablet 04/14/21 levETIRAcetam [Keppra Tab] 500 mg PO BID #60 tab 04/14/21 New Medications: Folic Acid 1 mg PO DAILY #30 tablet levETIRAcetam [Keppra Tab] 500 mg PO BID #60 tab Amlodipine [Norvasc*] 10 mg PO DAILY #30 tab Thiamine HCl 100 mg PO DAILY #30 tablet Physician Discharge Instructions: Please do not for at least 3 months and until cleared by neurology to drive. Diet: AHA Activity: Ad kylah Followup: Tonny Taylor MD [ASSOCIATE-ACTIVE - CAN ADMIT] - 1 Week OOT,LISA [Primary Care Provider] - 1-2 Weeks Time spent managing pt's care (in minutes): 38
[2021-04-14 14:17] VITALS: BP 146/82
== END 2021-04-14 15:27 | disposition home or self-care (01) | DRG 897 ==
LOC: ER 16:04 → ERHOLD 19:40
PROVIDERS: ADMIT Internal Medicine; ATTEND Internal Medicine
DX: F10.239 Alcohol dependence with withdrawal, unspecified (principal); G40.509 Epileptic seizures related to external causes, not intractable, without status epilepticus; K21.9 Gastro-esophageal reflux disease without esophagitis; E83.42 Hypomagnesemia; E87.6 Hypokalemia; I10 Essential (primary) hypertension; E78.5 Hyperlipidemia, unspecified; G35 Multiple sclerosis; E11.42 Type 2 diabetes mellitus with diabetic polyneuropathy; E11.65 Type 2 diabetes mellitus with hyperglycemia; R00.0 Tachycardia, unspecified; Z88.8 Allergy status to other drugs, medicaments and biological substances; Z79.84 Long term (current) use of oral hypoglycemic drugs; Z90.49 Acquired absence of other specified parts of digestive tract; Z79.899 Other long term (current) drug therapy; Z20.822 Contact with and (suspected) exposure to COVID-19
CPT/HCPCS: 36415; 70450; 72125; 80048; 80053; 80061; 80320; 82947; 83036; 83735; 84100; 84439; 84443; 85025; 85610; 85730; 93005; 96372; 96374; 96375; 99284; J0360; J1650; J3360; J3411; J3475; J3480; J7030; U0003

== ENCOUNTER 2022-06-22 20:28 | Emergency (ER) | payer OTHER ==
--- OUTSIDE RECORDS SUMMARY | 2022-06-22 20:31 | XMS REPORT | Continuity of Care Document ---
:1965 Author Organization [facility] t Address [address] [place] [address] Care Team Providers Name Role Phone Unavailable Unavailable Unavailable Problems This patient has no known problems. Allergies, Adverse Reactions, Alerts This patient has no known allergies or adverse reactions. Social History Social Habit Start Date Stop Date Quantity Comments Source Sex Ass[birth year] At [birth year] ROSA [facility] Medications This patient has no known medications. Procedures This patient has no known procedures. Results Test Description Test Time Test Comments Results Result Comments Source SARS-COV2/RT-PCR ([facility]) 2019-08-26 23:03:00 Test Item Value Reference Range Interpretation Comme nts SARS-COV2/RT-PCR (test code = 1266870) Not Detected Not Detected, N egative SARS-COV-2 PERFORMING LAB (test code = [facility] 6677138) Negative results do not preclude SARS-CoV-2 infection [...] of the Act.Fact Sheet for Healthcare Pro viders:https://www.[employer]/Documents/Xpert%20Xpress%20SARS%20CoV-2/Fact%20Sh eets/3023802%22WRFK-ULK-8%20HEALTHCARE%20PROVIDERS%20FACT%20SHEET.pdfFact Sheet for Healthcare Patients:https://www.[employer]/Documents/Xpert%20Xpress%20SARS%20CoV-2/Fact%20Sheets/3023801%20SARS-COV -2%20PATIENT%20FACT%20SHEET.pdfPerforming Laboratory:[facility] [place] [address]
[2022-06-22 21:23] LABS: Absolute Lymphocytes (CBC) 2.2 K/uL (0.7-4.9); Lymphocytes % 31.5 % (15.3-44.8); MPV 8.7 fL (7.6-11.3)
--- NOTE | 2022-06-22 21:24 | RAD REPORT ---
EXAM DESCRIPTION: [place] Single View06/22/2022 9:08 pm CLINICAL HISTORY: DYSPNEA COMPARISON: Chest Single View dated 08/26/2019; Chest Pa And Lat (2 Views) dated 04/26/2016; Chest Pa And Lat (2 Views) dated 07/13/2015 TECHNIQUE: Portable AP view of the chest. FINDINGS: The lungs are clear. No pneumothorax or effusion. The cardiomediastinal contours are unrem arkable. IMPRESSION: No acute cardiopulmonary process.
[2022-06-22 21:29] LABS: Protime INR 0.97
--- NOTE | 2022-06-22 21:29 | RAD REPORT ---
EXAM DESCRIPTION: CT - Head Brain Wo Cont - 06/22/2022 9:17 pm CLINICAL HISTORY: DIZZINESS COMPARISON: Head Brain Wo Cont dated 11/02/2020 TECHNIQUE: Noncontrast head CT images ad were obtained without IV contrast. Multiplanar reformats we re generated and reviewed. All CT scans are performed using dose optimization technique as appropriate and may include automated exposure control or mA/KV adjustment according to patient size. FINDINGS: No intracranial hemorrhage, mass, or edema. Midline structures are unremarkable. Normal ventricular caliber for age. Mccann-white matter differentiation is preserved, without evidence of acute infarct. No abnormal extra- axial fluid collections. Mastoid air cells and visualized portions of the paranasal sinuses are clear. No acute bony findings. IMPRESSION: No evidence of an acute intracranial process.
[2022-06-22 21:42] LABS: Albumin 3.9 g/dL (3.4-5.0); Bilirubin Direct 0.2 mg/dL (0-0.2); Bilirubin Total 0.7 mg/dL (0.2-1.0); Magnesium 1.6 mg/dL (1.6-2.4); Potassium 3.6 mEq/L (3.5-5.1); Protein, Total 7.7 g/dL (6.4-8.2); Troponin High Sensitivity 7.4 pg/mL (<58.9)
[2022-06-22] MEDS ORDERED: NA CHLORIDE 0.9% 1,000 ML ONE ×2 (21:47→23:36)
[2022-06-22] MEDS ORDERED: INSULIN -REGULAR HUMAN 50 UNIT/0.5 ML ML ONE (23:40)
[2022-06-23 01:29] LABS: Potassium 3.3 mEq/L (3.5-5.1)
--- NOTE | 2022-06-23 08:39 | EDPHYS ---
Physician Documentation [facility] Name: Seth Flowers Age: 57 yrs Sex: Male : 1965 Arrival Date: 06/22/2022 Time: 20:32 Bed 7 Private MD: ED Physician Homer Mendoza HPI: 06/22 21:39 This 57 yrs old Male presents to ER via Ambulatory with complaints of dizziness, rn weakness. 21:40 Pt reports generalized weakness and fatigue, happening for weeks, reports insurance rn changed so has not been taking diabetes medication, + increased urination and thirst. No fever. No head injury. No chest pain. . Historical: - Allergies: 21:01 Celebrex; kl 21:01 Vioxx; kl - Home Meds: 21:01 Hydrochlorothiazide Oral [Active]; Jardiance Oral [Active]; lisinopril Oral [Active]; kl Metformin Oral [Active]; Omeprazole Oral [Active]; Tresiba FlexTouch U-100 subcutaneous [Active]; - PMHx: 21:01 Diabetes - IDDM; GERD; Heart Murmur; Hypertension; Multiple Sclerosis; kl - Family history:: not pertinent. - Hospitalizations: : No recent hospitalization is reported. ROS: 21:52 Constitutional: Negative for fever, chills, and weight loss, Eyes: Negative for injury, rn pain, redness, and discharge, Neck: Negative for injury, pain, and swelling, Cardiovascular: Negative for edema Respiratory: Negative for shortness of breath, cough, wheezing, and pleuritic chest pain, Abdomen/GI: Negative for abdominal pain, nausea, vomiting, diarrhea, and constipation, Back: Negative for injury and pain, : Negative for injury, bleeding, discharge, and swelling, MS/Extremity: Negative for injury and deformity, Skin: Negative for injury, rash, and discoloration, Neuro: Negative for headache, numbness, tingling, and seizure. Exam: 21:52 Constitutional: This is a well developed, well nourished patient who is awake, alert, rn and in no acute distress. Ambulatory to room without difficulty or assistance. Head/Face: Normocephalic, atraumatic. ENT: dry MM Neck: Trachea midline, no masses palpated, and no cervical lymphadenopathy. Supple, full range of motion without nuchal rigidity, or vertebral point tenderness. No Meningismus. Cardiovascular: Regular rate and rhythm. No pulse deficits. Respiratory: No increased work of breathing, no retractions or nasal flaring. Abdomen/GI: Soft, non-tender Skin: Warm, dry MS/ Extremity: Pulses equal, no cyanosis. Neuro: Awake and alert, GCS 15, oriented to person, place, time, and situation. Cranial nerves II-XII grossly intact. Motor strength 5/5 in all extremities. Sensory grossly intact. Cerebellar exam normal. Normal gait. 23:51 ECG was reviewed by the Attending Physician. rn Vital Signs: 20:59 BP 137 / 105; Pulse 100; Resp 18; Temp 98.6; Pulse Ox 98% on R/A; kl 22:30 BP 142 / 97; Pulse 91; Resp 20 S; Pulse Ox 97% on R/A; ha1 23:47 BP 138 / 92; Pulse 106; Resp 16; Pulse Ox 98% on R/A; jb4 06/23 00:30 BP 154 / 74; Pulse 68; Resp 17 S; Pulse Ox 99% on R/A; ha1 01:16 BP 134 / 99; Pulse 93; Resp 16; Pulse Ox 97% on R/A; jb4 01:37 BP 144 / 109; Pulse 87; Resp 16; Pulse Ox 97% on R/A; jb4 MDM: 06/22 20:32 Patient medically screened. rn 06/23 01:33 Differential Diagnosis hyperglycemia, dehydration, electrolyte problem, arrhythmia, rn kidney failure. Data reviewed: vital signs, nurses notes, lab test result(s), EKG, radiologic studies, CT scan, plain films, and as a result, I will discharge patient. Consideration of Admission/Observation Escalation of care including admission/observation considered. BMP improved, no AG, pt feels much better, no other acute findings in blood or imaging. Will dc home with instructions to return if worsens. . I considered the following discharge prescriptions or medication management in the emergency department Medications were administered in the Emergency Department. See MAR. Counseling: I had a detailed discussion with the patient and/or guardian regarding: the historical points, exam findings, and any diagnostic results supporting the discharge/admit diagnosis, lab results, radiology results, the need for outpatient follow up, to return to the emergency department if symptoms worsen or persist or if there are any questions or concerns that arise at home. Response to treatment: the patient's symptoms have markedly improved after treatment, and as a result, I will discharge patient. Special discussion: I discussed with the patient/guardian in detail that at this point there is no indication for admission to the hospital. It is understood, however, that if the symptoms persist or worsen the patient needs to return immediately for re-evaluation. Based on the history and exam findings, there is no indication for further emergent testing or inpatient evaluation. I discussed with the patient/guardian the need to see the primary care provider for further evaluation of the symptoms. 06/22 20:53 Order name: Basic Metabolic Panel rn 06/22 20:53 Order name: CBC with Diff rn 06/22 20:53 Order name: Hepatic Function 06/22 20:53 Order name: Magnesium rn 06/22 20:53 Order name: Protime (+inr) 06/22 20:53 Order name: Ptt, Activated rn 06/22 20:53 Order name: Troponin High Sensitivity 06/22 20:53 Order name: CT Head Brain wo Cont rn 06/22 20:53 Order name: Chest Single View XRAY rn 06/22 20:53 Order name: EKG; Complete Time: 20:54 rn 06/22 20:53 Order name: Cardiac monitoring; Complete Time: 21:05 06/22 20:53 Order name: EKG - Nurse/Tech; Complete Time: 21: rn 06/22 20:53 Order name: IV Saline Lock; Complete Time: 21:04 06/22 20:53 Order name: Labs collected and sent; Complete Time: 21:06/22 20:53 Order name: O2 Per Protocol; Complete Time: 21:06/22 20:53 Order name: O2 Sat Monitoring; Complete Time: 21: rn 06/22 20:53 Order name: Glucose Level; Complete Time: 21:53 rn EC/22 23:51 Rate is 97 beats/min. Rhythm is regular. QRS [place] is Normal. [place] interval is normal. QRS rn interval is normal. QT interval is normal. No Q waves. T waves are Normal. No ST changes noted. Clinical impression: Normal ECG. Interpreted by me. Reviewed by me. Administered Medications: 21:49 Drug: NS 0.9% IV 1000 ml Route: IV; Rate: 1000 ml; Site: right antecubital; jb4 23:00 Follow up: IV Status: Completed infusion; IV Intake: 1000ml jb4 23:48 Not Given (Physician Discretion): Insulin Regular Human Sub-Q 10 units Sub-Q once jb4 23:49 Drug: NS 0.9% IV 1000 ml Route: IV; Rate: 1000 ml; Site: right antecubital; jb4 06/23 02:39 Follow up: Response: No adverse reaction; IV Status: Completed infusion; IV Intake: jb4 1000ml 06/22 23:49 Drug: Insulin Regular Human Sub-Q 5 units {Co-Signature: jb4 (Israel Angeles RN).} kl Route: Sub-Q; Site: right lower abdomen; 06/23 00:30 Follow up: Response: No adverse reaction; Marked relief of symptoms jb4 Disposition Summary: 06/23/22 01:35 Discharge Ordered Location: Home rn Problem: new rn Symptoms: have improved rn Condition: Stable rn Diagnosis - Hyperglycemia, unspecified rn - Dehydration rn Followup: rn - With: Private Physician - When: As needed - Reason: Recheck today's complaints, Re-evaluation by your physician Discharge Instructions: - Discharge Summary Sheet rn - Dehydration, Adult rn - Hyperglycemia rn - Blood Glucose Monitoring, Adult rn Forms: - Medication Reconciliation Form rn - Thank You Letter rn - Antibiotic contemporary or modern dancer - Prescription Opioid Use rn Signatures: Dispatcher [employer] Maria Anotnia Sosa, RN RN Homer Dhillon MD MD rn Bryson, James RN BLAYNE jb4 Israel Angeles RN jb4
--- NOTE | 2022-06-23 08:39 | ER ---
Nurse's Notes [facility] Name: Seth Flowers Age: 57 yrs Sex: Male : 1965 Arrival Date: 06/22/2022 Time: 20:32 Bed 7 Private MD: Diagnosis: Hyperglycemia, unspecified;Dehydration Presentation: 06/22 20:59 Chief complaint: Patient states: weakness dizziness chest discomfort left arm pain x 2 kl weeks. Coronavirus screen: Vaccine status: Patient reports receiving the 2nd dose of the covid vaccine. Ebola Screen: Patient negative for fever greater than or equal to 101.5 degrees Fahrenheit, and additional compatible Ebola Virus Disease symptoms. Initial Sepsis Screen: Does the patient meet any 2 criteria? No. Patient's initial sepsis screen is negative. Does the patient have a suspected source of infection? No. Patient's initial sepsis screen is negative. Risk Assessment: Do you want to hurt yourself or someone else? Patient reports no desire to harm self or others. 20:59 Method Of Arrival: Ambulatory 20:59 Acuity: SATHISH 3 kl Triage Assessment: 21:02 General: Appears in no apparent distress. comfortable, well groomed, well developed, kl Behavior is calm, cooperative. Pain: Complains of pain in anterior aspect of left upper chest. Historical: - Allergies: 21:01 Celebrex; kl 21:01 Vioxx; kl - Home Meds: 21:01 Hydrochlorothiazide Oral [Active]; Jardiance Oral [Active]; lisinopril Oral [Active]; kl Metformin Oral [Active]; Omeprazole Oral [Active]; Tresiba FlexTouch U-100 subcutaneous [Active]; - PMHx: 21:01 Diabetes - IDDM; GERD; Heart Murmur; Hypertension; Multiple Sclerosis; kl - Family history:: not pertinent. - Hospitalizations: : No recent hospitalization is reported. Screenin:31 Abuse screen: Denies threats or abuse. Denies injuries from another. Nutritional ha1 screening: No deficits noted. Tuberculosis screening: No symptoms or risk factors identified. 06/23 01:37 [facility] ED Fall Risk Assessment (Adult) History of falling in the last 3 months, jb4 including since admission No falls in past 3 months (0 pts) Confusion or Disorientation No (0 pts) Score/Fall Risk Level 0 - 2 = Low Risk Oriented to surroundings, Maintained a safe environment. Assessment: 06/22 21:10 General: Appears in no apparent distress. comfortable, Behavior is calm, cooperative, jb4 appropriate for age. Pain: Denies pain. Neuro: Level of Consciousness is awake, alert, obeys commands, Oriented to person, place, time, situation. Cardiovascular: Patient's skin is warm and dry. Respiratory: Airway is patent Respiratory effort is even, unlabored, Respiratory pattern is regular, symmetrical. GI: No signs and/or symptoms were reported involving the gastrointestinal system. : No signs and/or symptoms were reported regarding the genitourinary system. EENT: No signs and/or symptoms were reported regarding the EENT system. Derm: Skin is intact, Skin is pink, warm \T\ dry. Musculoskeletal: Circulation, motion, and sensation intact. Range of motion: intact in all extremities. 22:32 Reassessment: Patient and/or family updated on plan of care and expected duration. Pain ha1 level reassessed. Patient is alert, oriented x 3, equal unlabored respirations, skin warm/dry/pink. Patient states symptoms have improved. 22:51 Reassessment: Patient appears in no apparent distress at this time. Patient and/or jb4 family updated on plan of care and expected duration. Pain level reassessed. Patient is alert, oriented x 3, equal unlabored respirations, skin warm/dry/pink. bgl [id number], provider notified, instructed to give 5 units of insulin instead of 10 units sub-q. 06/23 00:40 Reassessment: Patient and/or family updated on plan of care and expected duration. Pain ha1 level reassessed. Patient is alert, oriented x 3, equal unlabored respirations, skin warm/dry/pink. Patient states symptoms have improved. 01:16 Reassessment: Patient appears in no apparent distress at this time. Patient and/or jb4 family updated on plan of care and expected duration. Pain level reassessed. Patient is alert, oriented x 3, equal unlabored respirations, skin warm/dry/pink. 01:37 Reassessment: D/c pending completion of IV fluids. jb4 02:37 Reassessment: Patient appears in no apparent distress at this time. Patient and/or jb4 family updated on plan of care and expected duration. Pain level reassessed. Patient is alert, oriented x 3, equal unlabored respirations, skin warm/dry/pink. Vital Signs: 06/22 20:59 BP 137 / 105; Pulse 100; Resp 18; Temp 98.6; Pulse Ox 98% on R/A; kl 22:30 BP 142 / 97; Pulse 91; Resp 20 S; Pulse Ox 97% on R/A; ha1 23:47 BP 138 / 92; Pulse 106; Resp 16; Pulse Ox 98% on R/A; jb4 06/23 00:30 BP 154 / 74; Pulse 68; Resp 17 S; Pulse Ox 99% on R/A; ha1 01:16 BP 134 / 99; Pulse 93; Resp 16; Pulse Ox 97% on R/A; jb4 01:37 BP 144 / 109; Pulse 87; Resp 16; Pulse Ox 97% on R/A; jb4 ED Course: 06/22 20:32 Patient arrived in ED. mr 20:32 Homer Mendoza MD is Attending Physician. rn 21:01 Triage completed. kl 21:04 Israel Angeles, BLAYNE is Primary Nurse. jb4 21:05 Troponin High Sensitivity Sent. jb4 21:05 Ptt, Activated Sent. jb4 21:05 Protime (+inr) Sent. jb4 21:05 Hepatic Function Sent. jb4 21:05 Magnesium Sent. jb4 21:05 CBC with Diff Sent. jb4 21:05 Basic Metabolic Panel Sent. jb4 21:10 Chest Single View XRAY In Process Unspecified. EDMS 21:18 CT Head Brain wo Cont In Process Unspecified. EDMS 21:40 Basic Metabolic Panel Sent. jb4 21:40 CBC with Diff Sent. jb4 21:40 Hepatic Function Sent. jb4 21:40 Magnesium Sent. jb4 21:40 Protime (+inr) Sent. jb4 21:40 Ptt, Activated Sent. jb4 21:40 Troponin High Sensitivity Sent. jb4 06/23 01:37 Patient has correct armband on for positive identification. Allergy band placed. Bed in jb4 low position. Call light in reach. Side rails up X 1. Client placed on continuous cardiac and pulse oximetry monitoring. NIBP monitoring applied. cafeteria monitor on. 02:39 No provider procedures requiring assistance completed. IV discontinued, intact, jb4 bleeding controlled, No redness/swelling at site. Pressure dressing applied. Administered Medications: 06/22 21:49 Drug: NS 0.9% IV 1000 ml Route: IV; Rate: 1000 ml; Site: right antecubital; jb4 23:00 Follow up: IV Status: Completed infusion; IV Intake: 1000ml jb4 23:48 Not Given (Physician Discretion): Insulin Regular Human Sub-Q 10 units Sub-Q once jb4 23:49 Drug: NS 0.9% IV 1000 ml Route: IV; Rate: 1000 ml; Site: right antecubital; jb4 06/23 02:39 Follow up: Response: No adverse reaction; IV Status: Completed infusion; IV Intake: jb4 1000ml 06/22 23:49 Drug: Insulin Regular Human Sub-Q 5 units {Co-Signature: dane (Israel Angeles RN).} Route: Sub-Q; Site: right lower abdomen; 06/23 00:30 Follow up: Response: No adverse reaction; Marked relief of symptoms jb4 Intake: 06/22 23:00 IV: 1000ml; Total: 1000ml. jb4 06/23 02:39 IV: 1000ml; Total: 2000ml. jb4 Outcome: 01:35 Discharge ordered by . rn 02:39 Discharged to home ambulatory. jb4 02:39 Condition: stable 02:39 Discharge instructions given to patient, Instructed on discharge instructions, follow up and referral plans. Demonstrated understanding of instructions, follow-up care. 02:40 Patient left the ED. jb4 Signatures: Dispatcher [employer] EDMS Maria Antonia Fox RN RN kl RiveraJina Roman, MD MD rn Bryson, James, RN RN jb4 Ayala, Heidy, RN RN [facility] Israel Angeles RN Corrections: (The following items were deleted from the chart) 06/22 23:54 22:51 Reassessment: Patient appears in no apparent distress at this time. Patient jb4 and/or family updated on plan of care and expected duration. Pain level reassessed. Patient is alert, oriented x 3, equal unlabored respirations, skin warm/dry/pink. jb4
--- NOTE | 2022-06-23 12:14 | EKG ---
Test Date: 2022-06-22 Test Time: 20:55:50 French Comber: FLYNN MEASUREMENT RESULTS: Intervals: Rate: 97 MS: 126 QRSD: 84 QT: 366 QTc: 464 [place]: P: 2 MS: 126 QRS: 47 T: 26 INTERPRETIVE STATEMENTS: Normal sinus rhythm Normal ECG Compared to ECG 04/12/2021 16:07:21 Sinus tachycardia no longer present T-wave abnormality no longer present Electronically Signed On 06-23-22 12:12:56 CDT by Shaun Cha
[2022-06-23 12:16] VITALS: TEMP 98.6
[2022-06-23 12:20] VITALS: O2SAT 97
[2022-06-23 12:21] VITALS: BP 144/109
== END 2022-06-23 02:40 | disposition home or self-care (01) ==
LOC: ER 20:28
DX: E11.65 Type 2 diabetes mellitus with hyperglycemia (principal); E86.0 Dehydration; I10 Essential (primary) hypertension; Z79.4 Long term (current) use of insulin; Z88.8 Allergy status to other drugs, medicaments and biological substances
CPT/HCPCS: 96361; 93005; 85025; 80048 ×2; 36415 ×2; 83735; 85610; 82947 ×3; 80076; 85730; 84484; 70450; 71045; 96360; 96372; 99284; J1815; J7030 ×2

== ENCOUNTER 2023-12-14 22:39 | Inpatient (IN) | payer OTHER ==
[2023-12-14] MEDS ORDERED: ONDANSETRON 4 MG/2 ML VIAL ONE (23:24)
[2023-12-14] MEDS ORDERED: MORPHINE 2 MG/ML SYR ONE (23:25)
[2023-12-14] MEDS ORDERED: FAMOTIDINE 20 MG/2 ML VIAL IV ONE (23:25)
[2023-12-14] MEDS ORDERED: NA CHLORIDE 0.9% 1,000 ML ONE (23:26)
[2023-12-14 23:35] LABS: Absolute Lymphocytes (CBC) 0.7 K/uL (0.7-4.9); Absolute Monocytes 0.8 K/uL (0.1-1.3); Absolute Neutrophil 9.7 K/uL (1.8-8.0); Basophils % 0.2 % (0-1.3); Eosinophils % 0.1 % (0-4.4); Hemoglobin 15.3 g/dL (13.6-17.9); Lymphocytes % 5.9 % (15.3-44.8); MCH 32.5 pg (27.0-35.0); MCV 95.7 fL (80-100); MPV 7.8 fL (7.6-11.3); Monocytes % 7.2 % (3.3-12.3); Neutrophils % 86.6 % (41.7-73.7); Nucleated Red Blood Cells % 0.1 % (0-0); Platelets 215 thou/uL (152-406)
[2023-12-14 23:44] LABS: D-Dimer 0.66 FEUug/mL (0-0.500); Protime INR 0.98
[2023-12-15] LABS: ALT/SGPT 29 U/L (16-61); AST/SGOT 15 U/L (15-37); Albumin 4.3 g/dL (3.4-5.0); Albumin/Globulin Ratio 1.1 (1.1-1.8); Alkaline Phosphatase 62 U/L (45-117); BUN Blood Urea Nitrogen 13 mg/dL (7-18); Bicarbonate 19 mEq/L (21-32); Bilirubin Total 0.6 mg/dL (0.2-1.0); Globulin 3.9 g/dL (2.3-3.5); Glomerular Filtration Rate 105 ml/min (=/>90); Glucose Level 285 mg/dL (74-106); Lipase 490 U/L (13-75); Magnesium 1.4 mg/dL (1.6-2.4); Protein, Total 8.2 g/dL (6.4-8.2); Sodium Level 137 mEq/L (136-145); Troponin High Sensitivity 6.6 pg/mL (<58.9)
[2023-12-15 00:04] LABS: Bilirubin Direct < 0.2 mg/dL (0-0.2); Bilirubin Indirect, Calculated 0.4 mg/dL (0.2-0.8)
[2023-12-15 00:11] LABS: Band Neutrophils 26 % (0-1); Differential Total Cells Count 100; Lymphocytes 3 % (15-42); Monocytes 6 % (0-10); Reactive Lymphocytes 4 %; Segmented Neutrophils 61 % (40-80)
[2023-12-15 00:12] LABS: Blood Morphology Comment NOT SEEN (NOT SEEN); Platelet Estimate ADEQ
[2023-12-15] MEDS ORDERED: NA CHLORIDE 0.9% 0 ML ONE (01:45)
[2023-12-15] MEDS ORDERED: KCL 20 MEQ/100 mL IVPB 100 ML IV ONE (01:46)
[2023-12-15] MEDS ORDERED: Magnesium Sulfate 2gm IVPB 2 G/50 ML BAG IV ONE (01:47)
[2023-12-15 01:52] LABS: Specific Gravity > 1.030 (1.005-1.030); Sqamous Epithelial None Seen /HPF (None Seen); Urine Bacteria None Seen /HPF (<20); Urine Bilirubin NEGATIVE (Negative); Urine Blood Negative (Negative); Urine Clarity Clear (Clear); Urine Color Colorless (Yellow); Urine Culture Reflex Order NOT NEEDED; Urine Glucose 4+ (Over) (Negative); Urine Ketones 4+ (Over) (Negative); Urine Microscopic Reflex YN ORDER UMIC; Urine Nitrite NEGATIVE (Negative); Urine Protein TRACE (Negative); Urine Urobilinogen Normal (Normal); Urine WBC <5 /HPF (<5)
[2023-12-15] MEDS ORDERED: METOCLOPRAMIDE 10 MG/2mL INJ ONE (02:30)
[2023-12-15] MEDS ORDERED: MORPHINE 4 MG/ML SYR ONE ×2 (02:30→04:28)
[2023-12-15] MEDS ORDERED: DIAZEPAM 5 MG TABLET ONE (02:31)
[2023-12-15 04:11] LABS: Anion Gap 23.6 mEq/L (5.0-15.0); Potassium 3.6 mEq/L (3.5-5.1); Troponin High Sensitivity 8.1 pg/mL (<58.9)
[2023-12-15] MEDS ORDERED: ONDANSETRON 4 MG/2 ML VIAL ONE (04:27)
[2023-12-15] MEDS ORDERED: INSULIN REGULAR (HUMAN) 100 UNIT/ML ONE (04:28)
--- NOTE | 2023-12-15 04:34 | EDPHYS ---
Physician Documentation [facility] Name: Seth Flowers Age: 58 yrs Sex: Male : 1965 Arrival Date: 12/14/2023 Time: 22:39 Bed 18 Private MD: ED Physician Steve Sanders HPI: 12/13 23:00 This 58 yrs old Male presents to ER via Ambulatory with complaints of Shortness Of cp Breath, Chest Pain, Back Pain. 23:00 The patient or guardian reports chest pain that is located primarily in the substernal cp area, epigastric area. Onset: 3-4 days ago that became worse this afternoon. The pain radiates to back. Associated signs and symptoms: Pertinent positives: nausea, shortness of breath, Pertinent negatives: cough, diaphoresis. The chest pain is described as fullness. 23:00 Severity of pain: in the emergency department the pain is unchanged despite home cp interventions. Historical: - Allergies: 22:47 Celebrex; ss 22:47 Vioxx; ss - PMHx: 22:47 Diabetes - IDDM; GERD; Heart Murmur; Hypertension; Multiple Sclerosis; Tachycardia ss (Multiple Sclerosis); - PSHx: 22:47 Cholecystectomy; Lumpectomy; ss - Immunization history:: Client reports receiving the 2nd dose of the Covid vaccine. - Infectious Disease History:: Denies. - Social history:: Smoking status: Patient denies any tobacco usage or history of. ROS: 23:05 Constitutional: Negative for body aches, chills, fever, cp 23:05 Eyes: Negative for injury, pain, redness, and discharge, cp 23:05 Cardiovascular: Positive for chest pain, Negative for edema, palpitations, 23:05 Respiratory: Positive for shortness of breath, Negative for cough, wheezing, 23:05 Abdomen/GI: Positive for abdominal pain, nausea, Negative for vomiting, diarrhea, constipation, 23:05 Neuro: Negative for altered mental status, headache, cp 23:05 All other systems are negative, cp Exam: 23:00 ECG was reviewed by the Attending Physician. cp 23:10 Constitutional: The patient appears in no acute distress, alert, awake, cp non-diaphoretic, non-toxic, well developed, well nourished, uncomfortable, 23:10 Head/Face: Normocephalic, atraumatic. cp 23:10 Eyes: Periorbital structures: appear normal, Conjunctiva: normal, no exudate, no injection, Sclera: no appreciated abnormality, Lids and lashes: appear normal, bilaterally, 23:10 ENT: External ear(s): are unremarkable, Nose: is normal, Mouth: Lips: moist, Oral mucosa: moist, Posterior pharynx: Airway: no evidence of obstruction, patent, 23:10 Chest/axilla: Inspection: normal, Palpation: crepitus, is not appreciated, tenderness, that is moderate, of the xiphoid area, 23:10 Cardiovascular: Rate: tachycardic, Rhythm: regular, Edema: is not appreciated, JVD: is not appreciated, 23:10 Respiratory: the patient does not display signs of respiratory distress, Respirations: normal, no use of accessory muscles, no retractions, labored breathing, is not present, Breath sounds: are clear throughout, no decreased breath sounds, no stridor, no wheezing, 23:10 Abdomen/GI: Inspection: abdomen appears normal, Bowel sounds: active, all quadrants, Palpation: soft, in all quadrants, moderate abdominal tenderness, in the epigastric area, rebound tenderness, is not appreciated, involuntary guarding, is not appreciated, 23:10 Back: pain, that is moderate, of the left subscapular area and right subscapular area, 23:10 Neuro: Orientation: to person, place \T\ time. Mentation: is normal, Motor: moves all fours, strength is normal, Vital Signs: 22:45 BP 153 / 103; Pulse 116; Resp 16; Temp 98.2(TE); Pulse Ox 100% on R/A; Weight 86.18 kg; ss Height 5 ft. 8 in. ; Pain 6/10; 23:40 BP 131 / 91; Pulse 101; Resp 18; Temp 98; Pulse Ox 94% on R/A; kj2 12/14 00:40 BP 119 / 83; Pulse 101; Resp 18; Pulse Ox 100% ; ha1 01:51 BP 160 / 114; Pulse 108; Resp 18; Pulse Ox 98% on R/A; ha1 02:19 BP 161 / 116; Pulse 105; Resp 18; Pulse Ox 100% on R/A; ha1 02:33 BP 159 / 102; Pulse 109; Resp 17 S; Pulse Ox 98% ; ha1 12/13 22:45 Body Mass Index 28.89 (86.18 kg, 172.72 cm) ss 12/13 22:45 Pain Scale: Adult ss MDM: 12/13 22:50 Patient medically screened. cp 12/14 04:05 ED course: CT - IMPRESSION: No evidence for significant aneurysmal dilatation or sp4 evidence of dissection of the thoracic or abdominal aorta. Mild coronary artery calcification. Mild fatty infiltration of the liver. Status post cholecystectomy. Small left inguinal hernia containing omentum. Slight prominence of the pancreatic head with minimal peripancreatic haziness possibility of mild acute pancreatitis could be of consideration, correlate with amylase and lipase. Electronically signed by: Tung Stevenson MD 12/15/2023 02:13 AM . 04:05 ED course: CT full report - EXAM DESCRIPTION: CT CHESTABDOMEN PELVIS ANGIOGRAPHYWITH IV sp4 CONTRAST 12/15/2023 1:49 AM CDT CLINICAL HISTORY: 58 years, Male, Chest pain, back pain, abdominal pain. COMPARISON: XR Chest 12/14/2023 and CTAbdomen pelvis 08/26/2019. PROCEDURE: Multiple transaxial tomograms of the thoracic and abdominal aorta were performed utilizing 3 mm slice thickness at 3 mm interval reconstruction, from the lung apices to the ischial tuberosities, before and after the administration of large bolus of IV contrast for complete opacification of the thoracic, abdominal aorta and iliac arteries. 2-D and 3-D multiplanar reformats, volume rendering technique and maximum intensity projection images were generated and reviewed. An individualized dose optimization technique, Automated Exposure Control, was utilized for the performed procedure. Findings: Thoracic aorta/great vessels: The thoracic aorta demonstrate to be within normal limits. No evidence for significant aneurysm and/or dilatation. Very minimal peripheral plaque. There is normal branching pattern of the great vessels with no evidence for significant proximal stenosis and/or occlusion Aorta/iliac arteries: The visualized abdominal aorta is patent without significant aneurysmal dilatation or evidence of dissection. There is minimal peripheral atheromatous plaque. Bilateral common iliac arteries are patent minimal peripheral atheromatous plaque. No significant stenosis, no significant dilatation and/or aneurysm. The celiac trunk, superior mesenteric and inferior mesenteric artery demonstrate to be patent with no evidence for significant stenosis and/or occlusion. There are single bilateral renal arteries with no significant abnormalities. Chest: Lower neck: Visualized thyroid gland and soft tissues are normal. No adenopathy. Lungs: The lung parenchyma demonstrate to be clear. No evidence of airspace or interstitial process. No significant pulmonary nodules and/or masses identified. No focal areas of consolidation. Airways: The trachea mainstem bronchus demonstrate to be unremarkable. Pleural: There are no pleural effusion. No evidence for pneumothorax. Hemidiaphragms are normally positioned. Mediastinum and lymph nodes: No significant mediastinal and/or hilar lymphadenopathy. The axillary regions demonstrate to be clear. Heart: Normal size. No pericardial thickening or effusion. Coronary: Mild coronary calcification. Pulmonary arteries: The central pulmonary arteries demonstrate to be within normal limits. No evidence for significant central filling defect to suggest pulmonary embolus. Osseous structures and chest wall: There is anterior spondylosis within the mid/lower thoracic spine. Abdomen and pelvis: Liver: The liver demonstrated presence of decreased attenuation corresponding to mild fatty infiltration. Gallbladder: Surgical clips within the gallbladder fossa corresponding to previous cholecystectomy. No significant biliary duct dilatation. Adrenal glands: The adrenal glands demonstrate to be normal. Pancreas: The pancreas is decreased in size/mildly atrophic with prominence of the pancreatic head where there is slight prominence and peripancreatic haziness perhaps just in the possibility of acute pancreatitis. Spleen: The spleen demonstrate to be within normal limits. Kidneys: The kidneys demonstrate normal uptake of contrast media. There is no evidence for nephrolithiasis and/or hydronephrosis. GI: Grossly the unopacified stomach, small bowel and large bowel demonstrate to be within normal limits. No evidence for bowel dilatation and/or free air. The appendix is normal. The left-sided colon demonstrate to be decompressed with no gross abnormalities. : The urinary bladder demonstrate to be well distended. Genitalia: The prostate gland is normal. Retroperitoneum:There is no retroperitoneal lymphadenopathy. There is no evidence for ascites and/or abnormal fluid collections. Bones: The bony structures demonstrate to be within normal limits. No evidence for compression deformity and/or significant skeletal lesions. Soft tissues: There is a small left inguinal hernia containing omentum. IMPRESSION: No evidence for significant aneurysmal dilatation or evidence of dissection of the thoracic or abdominal aorta. Mild coronary artery calcification. Mild fatty infiltration of the liver. Status post cholecystectomy. Small left inguinal hernia containing omentum. Slight prominence of the pancreatic head with minimal peripancreatic haziness possibility of mild acute pancreatitis could be of consideration, correlate with amylase and lipase. . 04:33 Differential diagnosis: Anxiety Reaction asthma, Bronchitis CHF exacerbation, Chronic sp4 Obstructive Pulmonary Disease Myocardial Infarction. Data reviewed: vital signs, nurses notes, old medical records, lab test result(s), EKG, radiologic studies, CT scan. 12/13 23:00 Order name: Basic Metabolic Panel; Complete Time: 00:53 cp 12/14 00:53 Interpretation: Normal except: K 3.0; CO2 19; ANION GAP 23.0; GLUC 285; CA 10.6. cp 12/13 23:00 Order name: CBC with Diff; Complete Time: 00:53 cp 12/13 23:40 Interpretation: Normal except: WBC 11.20; SEDA% 86.6; LYM% 5.9; NEUT A 9.7. cp 12/13 23:00 Order name: D-Dimer; Complete Time: 23:57 cp 12/13 23:57 Interpretation: Reviewed. 12/13 23:00 Order name: LFT's; Complete Time: 00:53 cp 12/14 00:55 Interpretation: Normal except: GLOB 3.9. cp 12/13 23:00 Order name: Magnesium; Complete Time: 00:53 cp 12/13 23:00 Order name: PT-INR; Complete Time: 23:57 cp 12/13 23:00 Order name: Troponin HS; Complete Time: 00:53 cp 12/13 23:00 Order name: Lipase; Complete Time: 00:53 cp 12/14 00:54 Interpretation: Reviewed. 12/13 23:02 Order name: BNP; Complete Time: 23:57 cp 12/13 23:41 Order name: Manual Differential; Complete Time: 00:53 EDMS 12/14 00:57 Order name: Urinalysis w/ reflexes; Complete Time: 02:23 cp 12/14 00:57 Order name: BETA HYDROXYBUTYRATE; Complete Time: 02:23 cp 12/14 02:24 Order name: BMP; Complete Time: 04:16 sp4 12/14 02:24 Order name: Troponin High Sensitivity; Complete Time: 04:16 sp4 12/14 02:44 Order name: Glucose, Ancillary Testing; Complete Time: 04:04 EDMS 12/14 04:23 Order name: ABG: venous blood gas ; Complete Time: 05:03 sp4 12/14 05:05 Order name: Lactate w/ 2H reflex if indic.; Complete Time: 06:22 sp4 12/14 05:44 Order name: Glucose, Ancillary Testing; Complete Time: 06:22 EDOK 12/14 07:33 Order name: Glucose, Ancillary Testing [facility] 12/14 08:39 Order name: Basic Metabolic Panel [facility] 12/14 08:39 Order name: Lipid Profile [facility] 12/13 23:00 Order name: XRAY Chest (1 view) 12/13 23:41 Order name: CT Aorta for Dissection 12/13 23:00 Order name: Cardiac monitoring; Complete Time: 23:01 12/13 23:00 Order name: EKG - Nurse/Tech; Complete Time: 23:01 12/13 23:00 Order name: IV Saline Lock; Complete Time: 23:38 12/13 23:00 Order name: Labs collected and sent; Complete Time: 23:38 12/13 23:00 Order name: O2 Per Protocol; Complete Time: 23:02 12/13 23:00 Order name: O2 Sat Monitoring; Complete Time: 23:02 12/14 01:24 Order name: Accucheck Blood Glucose; Complete Time: 02:32 cp EC/12 23:00 Rate is 112 beats/min. Rhythm is regular. MN interval is normal. QRS interval is cp normal. QT interval is normal. T waves are Inverted in lead aVR. Interpreted by me. Reviewed by me. Administered Medications: 23:30 Drug: morphine IVP or IV 2 mg IVP once over 4 mins Route: IVP; Infused Over: 4 mins; kj2 Site: right antecubital; 12/14 01:39 Follow up: Response: No adverse reaction; Pain is decreased [facility] 12/13 23:35 Drug: Ondansetron IVP 4 mg IVP once; over 2 minutes Route: IVP; Site: right antecubital;2 12/14 01:39 Follow up: Response: No adverse reaction [facility] 12/13 23:36 Drug: NS 0.9% IV 1000 ml IV at 999 ml/hr Per protocol Route: IV; Rate: 999 ml/hr; Site: kj right antecubital; 23:38 Drug: Famotidine IVP 20 mg IVP once; dilute with 10 mL 0.9% NaCl; give over 2 minutes kj2 Route: IVP; Site: right antecubital; 12/14 01:39 Follow up: Response: No adverse reaction ha1 02:16 Drug: NS 0.9% IV 1000 ml IV at 1 bolus Per protocol; 1000 mL bolus Route: IV; Rate: 1 ha1 bolus; Site: right antecubital; 02:16 Drug: Magnesium Sulfate IVPB 2 grams IVPB once over 2 hrs Route: IVPB; Infused Over: 2 ha1 hrs; Site: right antecubital; 04:16 Follow up: IV Status: Completed infusion kj2 04:49 Follow up: IV Status: Completed infusion; IV Intake: 50ml kj2 02:16 Drug: Potassium Chloride IV 20 mEq IV at calculated rate once; administer over 1-2 ha1 hours Route: IV; Rate: calculated rate; Site: right antecubital; 04:16 Follow up: IV Status: Completed infusion kj2 04:48 Follow up: IV Status: Completed infusion; IV Intake: 100ml kj2 02:35 Drug: morphine IVP or IV 4 mg IVP once over 4 mins Route: IVP; Infused Over: 4 mins; kj2 Site: right antecubital; 03:15 Follow up: Response: No adverse reaction kj2 02:43 Drug: metoCLOPramide IVP 10 mg IVP once; over 1 to 2 minutes Route: IVP; Site: right kj2 antecubital; 03:15 Follow up: Response: No adverse reaction kj2 02:43 Drug: Diazepam PO 5 mg PO once Route: PO; kj2 03:15 Follow up: Response: No adverse reaction kj2 04:30 Drug: Insulin Regular Human IVP 4 units IVP once {Co-Signature: jjKristi (Lucian, angelita Pa RN).} Route: IVP; Site: left upper arm; 04:35 Drug: morphine IVP or IV 4 mg IVP once over 4 mins Route: IVP; Infused Over: 4 mins; kj2 Site: right antecubital; 05:14 Follow up: Response: No adverse reaction; Pain is decreased kj2 04:45 Drug: Ondansetron IVP 4 mg IVP once; over 2 minutes Route: IVP; Site: right antecubital;kj2 05:14 Follow up: Response: No adverse reaction kj2 Disposition: 04:32 Co-signature as Attending Physician, Steve Sanders MD I agree with the assessment sp4 and plan of care. I reviewed the patient's care provided by Advanced Practice Provider \T\ agree w/ the diagnosis \T\ care plan. I personally saw the pt \T\ performed a substantive portion of the visit, incldng all aspects of the (History/Exam/Medical Decision Making). Disposition Summary: 12/15/23 04:33 Hospitalization Ordered Notes: Hospitalization Status: Inpatient Admission sp4 Provider: [place] sp4 Condition: Stable sp4 Problem: new sp4 Symptoms: have improved sp4 Bed/Room Type: Standard sp4 Location: Telemetry/MedSurg (Inpatient)(12/15/23 08:11) eb Room Assignment: 414(12/15/23 08:11) eb Diagnosis - Pancreatitis, hyperglycemia, uncontrolled diabetes mellitus sp4 Forms: - Medication Reconciliation Form sp4 - SBAR form sp4 - Leadership Thank You Letter sp4 Signatures: Dispatcher [employer] EDOK Erica Gayle RN RN ss Cristian Kumar, BANKER MASON-C BANKER MASON-Cla1 Demetris Varela PA PA cp Botello, Elizabeth eb Ayala, Heidy, RN RN ha1 Steve Sanders MD MD sp4 Patti Robles RN RN kj2 Ember Epstein RN [email or web address] Corrections: (The following items were deleted from the chart) 12/13 23:00 23:00 BASIC METABOLIC PANEL+C.LAB.BRZ ordered. EDMS EDMS 23:00 23:00 CBC+H.LAB.BRZ ordered. EDMS EDMS 23:00 23:00 D-DIMER+COAG.LAB.BRZ ordered. EDMS EDMS 23:00 23:00 HEPATIC FUNCTION+C.LAB.BRZ ordered. EDMS EDMS 23:00 23:00 MAGNESIUM+C.LAB.BRZ ordered. EDMS EDMS 23:00 23:00 PROTIME (+INR)+COAG.LAB.BRZ ordered. EDMS EDMS 23:00 23:00 Troponin High Sensitivity+C.LAB.BRZ ordered. EDMS EDMS 23:00 23:00 LIPASE+C.LAB.BRZ ordered. EDMS EDMS 23:00 23:00 Chest Single View+RAD.RAD.BRZ ordered. EDMS EDMS 12/14 05:39 04:33 Telemetry/MedSurg (Inpatient) sp4 ss 05:39 04:33 sp4 08:11 05:39 BR ER HOLD ss eb 08:11 05:39 ERHOLD- ss eb
--- NOTE | 2023-12-15 04:34 | ER ---
Nurse's Notes [facility] Name: Seth Flowers Age: 58 yrs Sex: Male : 1965 Arrival Date: 12/14/2023 Time: 22:39 Bed 18 Private MD: Diagnosis: Pancreatitis, hyperglycemia, uncontrolled diabetes mellitus Presentation: 12/13 22:45 Chief complaint: Patient states: chest discomfort that radiates to back x 3-4 days. Pt ss reports pain became much worse at 1400 today. Coronavirus screen: Client denies travel out of the [place] in the last 14 days. Ebola Screen: Patient denies exposure to infectious person. Patient denies travel to an Ebola-affected area in the 21 days before illness onset. Initial Sepsis Screen: Does the patient meet any 2 criteria? No. Patient's initial sepsis screen is negative. Does the patient have a suspected source of infection? No. Patient's initial sepsis screen is negative. Risk Assessment: Do you want to hurt yourself or someone else? Patient reports no desire to harm self or others. Onset of symptoms was December 12, 2023. 22:45 Method Of Arrival: Ambulatory ss 22:45 Acuity: SATHISH 2 ss Triage Assessment: 23:43 Respiratory: Reports shortness of breath on exertion Onset: The symptoms/episode kj2 began/occurred 3 days, the patient has mild shortness of breath. Historical: - Allergies: 22:47 Celebrex; ss 22:47 Vioxx; ss - PMHx: 22:47 Diabetes - IDDM; GERD; Heart Murmur; Hypertension; Multiple Sclerosis; Tachycardia ss (Multiple Sclerosis); - PSHx: 22:47 Cholecystectomy; Lumpectomy; ss - Immunization history:: Client reports receiving the 2nd dose of the Covid vaccine. - Infectious Disease History:: Denies. - Social history:: Smoking status: Patient denies any tobacco usage or history of. Screenin:25 [facility] ED Fall Risk Assessment (Adult) History of falling in the last 3 months, kj2 including since admission No falls in past 3 months (0 pts) Confusion or Disorientation No (0 pts) Intoxicated or Sedated No (0 pts) Impaired Gait No (0 pts) Mobility Assist Device Used No (0 pt) Altered Elimination No (0 pt) Score/Fall Risk Level 0 - 2 = Low Risk. Abuse screen: Denies threats or abuse. Denies injuries from another. Nutritional screening: No deficits noted. Tuberculosis screening: No symptoms or risk factors identified. Assessment: 23:25 General: Appears in no apparent distress. Behavior is calm, cooperative. Pain: kj2 Complains of pain in chest Pain currently is 6 out of 10 on a pain scale. Neuro: Level of Consciousness is awake, alert, Oriented to person, place, time, situation. Cardiovascular: Patient's skin is warm and dry. Respiratory: Airway is patent Respiratory effort is even, unlabored, Breath sounds are clear bilaterally. 12/14 00:25 Reassessment: Patient appears in no apparent distress at this time. Patient and/or ha1 family updated on plan of care and expected duration. Pain level reassessed. Patient is alert, oriented x 3, equal unlabored respirations, skin warm/dry/pink. 01:25 Reassessment: Patient appears in no apparent distress at this time. Patient and/or ha1 family updated on plan of care and expected duration. Pain level reassessed. Patient is alert, oriented x 3, equal unlabored respirations, skin warm/dry/pink. Vital Signs: 12/13 22:45 BP 153 / 103; Pulse 116; Resp 16; Temp 98.2(TE); Pulse Ox 100% on R/A; Weight 86.18 kg; ss Height 5 ft. 8 in. ; Pain 6/10; 23:40 BP 131 / 91; Pulse 101; Resp 18; Temp 98; Pulse Ox 94% on R/A; kj2 12/14 00:40 BP 119 / 83; Pulse 101; Resp 18; Pulse Ox 100% ; ha1 01:51 BP 160 / 114; Pulse 108; Resp 18; Pulse Ox 98% on R/A; ha1 02:19 BP 161 / 116; Pulse 105; Resp 18; Pulse Ox 100% on R/A; ha1 02:33 BP 159 / 102; Pulse 109; Resp 17 S; Pulse Ox 98% ; ha1 12/13 22:45 Body Mass Index 28.89 (86.18 kg, 172.72 cm) ss 12/13 22:45 Pain Scale: Adult ED Course: 12/13 22:42 Patient arrived in ED. im 22:45 Demetris Varela PA is PHCP. cp 22:46 Steve Sanders MD is Attending Physician. cp 22:47 Triage completed. ss 22:47 Arm band placed on right wrist. ss 23:15 Patti Robles, BLAYNE is Primary Nurse. kj2 23:21 Inserted saline lock: 20 gauge in right antecubital area, using aseptic technique. oe Blood collected. Flushed with 10 mL NS. 23:26 XRAY Chest (1 view) In Process Unspecified. EDMS 23:42 Patient has correct armband on for positive identification. Bed in low position. Call kj2 light in reach. Provided Education on: call light, shortness of breath management. 23:44 No provider procedures requiring assistance completed. kj2 12/14 01:02 CT Aorta for Dissection In Process Unspecified. EDMS 04:33 Prince Thomas MD is Hospitalizing Provider. sp4 05:24 Lactate w/ 2H reflex if indic. Sent. kj2 Administered Medications: 12/13 23:30 Drug: morphine IVP or IV 2 mg IVP once over 4 mins Route: IVP; Infused Over: 4 mins; kj2 Site: right antecubital; 12/14 01:39 Follow up: Response: No adverse reaction; Pain is decreased [facility] 12/13 23:35 Drug: Ondansetron IVP 4 mg IVP once; over 2 minutes Route: IVP; Site: right antecubital;[facility] 12/14 01:39 Follow up: Response: No adverse reaction [facility] 12/13 23:36 Drug: NS 0.9% IV 1000 ml IV at 999 ml/hr Per protocol Route: IV; Rate: 999 ml/hr; Site: [facility] right antecubital; 23:38 Drug: Famotidine IVP 20 mg IVP once; dilute with 10 mL 0.9% NaCl; give over 2 minutes kj Route: IVP; Site: right antecubital; 12/14 01:39 Follow up: Response: No adverse reaction [facility] 02:16 Drug: NS 0.9% IV 1000 ml IV at 1 bolus Per protocol; 1000 mL bolus Route: IV; Rate: 1 ha1 bolus; Site: right antecubital; 02:16 Drug: Magnesium Sulfate IVPB 2 grams IVPB once over 2 hrs Route: IVPB; Infused Over: 2 ha1 hrs; Site: right antecubital; 04:16 Follow up: IV Status: Completed infusion kj2 04:49 Follow up: IV Status: Completed infusion; IV Intake: 50ml kj2 02:16 Drug: Potassium Chloride IV 20 mEq IV at calculated rate once; administer over 1-2 ha1 hours Route: IV; Rate: calculated rate; Site: right antecubital; 04:16 Follow up: IV Status: Completed infusion kj2 04:48 Follow up: IV Status: Completed infusion; IV Intake: 100ml kj2 02:35 Drug: morphine IVP or IV 4 mg IVP once over 4 mins Route: IVP; Infused Over: 4 mins; kj2 Site: right antecubital; 03:15 Follow up: Response: No adverse reaction kj2 02:43 Drug: metoCLOPramide IVP 10 mg IVP once; over 1 to 2 minutes Route: IVP; Site: right kj2 antecubital; 03:15 Follow up: Response: No adverse reaction kj2 02:43 Drug: Diazepam PO 5 mg PO once Route: PO; kj2 03:15 Follow up: Response: No adverse reaction kj2 04:30 Drug: Insulin Regular Human IVP 4 units IVP once {Co-Signature: [email or web address] (Lucian, angelita Pa RN).} Route: IVP; Site: left upper arm; 04:35 Drug: morphine IVP or IV 4 mg IVP once over 4 mins Route: IVP; Infused Over: 4 mins; kj2 Site: right antecubital; 05:14 Follow up: Response: No adverse reaction; Pain is decreased kj2 04:45 Drug: Ondansetron IVP 4 mg IVP once; over 2 minutes Route: IVP; Site: right antecubital;kj2 05:14 Follow up: Response: No adverse reaction kj2 Medication: 12/13 23:42 VIS not applicable for this client. kj2 Intake: 12/14 04:48 IV: 100ml; Total: 100ml. kj2 04:49 IV: 50ml; Total: 150ml. kj2 Outcome: 04:33 Decision to Hospitalize by Provider. sp4 09:55 Patient left the ED. eb Signatures: Dispatcher [employer] EDErica Jiménez RN RN Demetris Harvey PA PA cp Espinosa, Orlando oe Botello, Elizabeth eb Ayala, Heidy, RN RN ha1 Steve Sanders MD MD sp4 Rosalina Machado Krystal, RN RN kj2 Ember Epstein RN [email or web address]
[2023-12-15 04:55] LABS: Arterial Blood Carboxyhemoglob 0.8 % (0-1.5); Blood Gas Oxyhemoglobin 65.1 % (94-97)
[2023-12-15 04:56] LABS: Blood Gas THB 15.6 g/dl (12-18)
[2023-12-15] MEDS ORDERED: ONDANSETRON 4 MG/2 ML VIAL IV PRN (05:23)
[2023-12-15] MEDS: PANTOPRAZOLE 40 MG INJ IVP ONE (05:30)
--- NOTE | 2023-12-15 05:31 | P.HP ---
Certification for Inpatient Patient admitted to: Inpatient With expected LOS: >2 Midnights Practitioner: I am a practitioner with admitting privileges, knowledge of patient current condition, hospital course, and medical plan of care. Services: Services provided to patient in accordance with Admission requirements found in Title 42 Section 412.3 of the Code of Federal Regulations Patient History Date of Service: 12/15/23 Reason for admission: chest and abdominal pain History of Present Illness: Is a 58-year-old male with a past medical history of hypertension, typ e 2 diabetes mellitus on Ozempic and other oral drugs and seizure disorder. He presented to the ER complaining of a chest pain radiating to his back. Associated symptoms include nausea and 1 episode of nonbloody emesis. CT in the ER ruled out evidence of aneurysm or dissection of the thoracic or abdominal aorta. It revealed prominence of the pancreatic head suggestive of acute pancreatitis. Patient has a elevated lipase at 490. Other blood work include metabolic acidosis with worsening bicarb level which is trended down to 13. Patient's blood glucoses in the 250s. Allergies rofecoxib [From Vioxx] Allergy (Verified 07/28/16 09:28) Rash No K Allergy (Uncoded 12/14/16 01:01) Unknown Home Medications: Metformin HCl [Glucophage] 1,000 mg PO BID 05/19/16 Omeprazole 40 mg PO DAILY 05/19/16 Simvastatin [Zocor*] 40 mg PO BEDTIME 05/19/16 lisinopriL [Prinivil*] 20 mg PO [id number] 05/19/16 Montelukast [Singulair*] 10 mg PO DAILY 08/26/19 Sildenafil Citrate 20 mg PO PRN PRN 08/26/19 Magnesium Oxide 400 mg PO BID #10 tablet 08/27/19 Metoprolol Succinate [Toprol Xl*] 50 mg PO DAILY #30 tab 08/27/19 Amlodipine [Norvasc*] 10 mg PO DAILY #30 tab 04/14/21 Folic Acid 1 mg PO DAILY #30 tablet 04/14/21 Thiamine HCl 100 mg PO DAILY #30 tablet 04/14/21 levETIRAcetam [Keppra Tab] 500 mg PO BID #60 tab 04/14/21 - Past Medical/Surgical History Diabetic: Yes -: Hypertension, Diabetes mellitus -: Hyperlipidemia -: Peripheral neuropathy -: Obesity -: History of GERD -: Diabetes mellitus -: cataract sx -: cholecystectomy - Family History Father -: Cancer Notes: prostate CA Mother -: Heart disease Brother -: GI disease Notes: crohn's, ulcerative colitis - Social History Alcohol use: No CD- Drugs: No Caffeine use: Yes Physical Examination - Physical Exam General: Obese HEENT: Atraumatic, Normocephalic Respiratory: Normal air movement Cardiovascular: No edema, Normal pulses, Regular rate/rhythm, Normal S1 S2 Gastrointestinal: Tenderness (Epigastric abdominal tenderness) Neurological: Normal speech - Studies Laboratory Data (last 24 hrs) 12/15/23 12/14/23 12/14/23 03:36 23:18 23:18 WBC 11.20 H Hgb 15.3 Hct 45.0 Plt Count 215 PT 11.0 INR 0.98 Sodium 138 Potassium 3.6 D BUN 11 Creatinine 0.73 Glucose 254 H Magnesium Total Bilirubin AST ALT Alkaline Phosphatase Lipase 12/14/23 23:18 WBC Hgb Hct Plt Count PT INR Sodium 137 Potassium 3.0 L BUN 13 Creatinine 0.75 Glucose 285 H Magnesium 1.4 L Total Bilirubin 0.6 AST 15 ALT 29 Alkaline Phosphatase 62 Lipase 490 H Assessment and Plan - Problems (Diagnosis) (1) Hyperlipidemia Current Visit: No Status: Acute (2) Peripheral neuropathy Current Visit: No Status: Acute (3) Diabetes mellitus Current Visit: No Status: Chronic Qualifiers: (4) GERD (gastroesophageal reflux disease) Current Visit: No Status: Chronic Qualifiers: - Plan Assessment This is a 53-year-old male with a past medical history of remote alcoholism, type 2 diabetes mellitus on Ozempic, hypertension and seizure disorder. He is being admitted for acute pancreatitis after he presented with chest pain radiating to the back. His lipase level was 490. Patient has worsening metabolic acidosis as well and hyperglycemia. Acute pancreatitis Mild DKA Anion gap metabolic acidosis Hypermagnesemia Type 2 diabetes mellitus Hypertension Hyperlipidemia Seizure disorder Plan: Will admit inpatient for volume resuscitation Starting the supportive care with aggressive normal saline infusion, IV pantoprazole and IV Zofran Low threshold to start insulin drip in case of severe metabolic acidosis or hypertriglyceridemia Pain control with multimodal pain regimen Will keep n.p.o. for now for bowel rest until patient's epigastric pain has improved Nonurgent consult to nephrology for worsening metabolic acidosis Resume home meds upon reconciliation Patient is full code - Advance Directives Does patient have a Living Will: No Does patient have a Durable POA for Healthcare: No
[2023-12-15] MEDS ORDERED: PANTOPRAZOLE 40 MG INJ ONE ×2 (05:34→05:39)
[2023-12-15] MEDS ORDERED: NA CHLORIDE 0.9% 1,000 ML ONE ×2 (05:34→05:39)
[2023-12-15] MEDS: NA CHLORIDE 0.9% 1,000 ML IV SCH (05:53)
[2023-12-15 08:39] LABS: Anion Gap 20.7 mEq/L (5.0-15.0); Potassium 3.7 mEq/L (3.5-5.1)
[2023-12-15] MEDS: HYDROMORPHONE HCL 1 MG/ML INJ IV PRN (10:19)
[2023-12-15] MEDS: ENOXAPARIN 40 MG/0.4 ML SQ SCH (10:20)
[2023-12-15] MEDS: NACHLORIDE 0.45% 1,000 ML with NA BICARB 8.4% 75 MEQ IV SCH ×4 (10:38→12:00)
--- NOTE | 2023-12-15 12:00 | P.CNS ---
Date of Consult: 12/15/23 Reason for Consult: Metab acidosis Requesting Physician: Prince aMry Thomas Chief Complaint: chest and abdominal pain History of Present Illness: Pt is a 58-year-old male with a past medical history of hypertension on medication, type 2 diabetes mellitus on Ozempic/GLP-1 RA for the past year plus who presented to the ER complaining of lower chest pain, epigastric pain. Some associated nausea, pain persistent/recurrent over the past 24h, mod intensity. CT in the ER reportedly ruled out evidence of aneurysm or dissection of the thoracic or abdominal aorta. Pt's BP was notably elevated, troponins negative. BG elevated, positive ketones. Other blood work include metabolic acidosis for which renal service consulted Allergies rofecoxib [From Vioxx] Allergy (Verified 07/28/16 09:28) Rash No K Allergy (Uncoded 12/14/16 01:01) Unknown Home Medications: Metformin HCl [Glucophage] 1,000 mg PO BID 05/19/16 Omeprazole 40 mg PO DAILY 05/19/16 Simvastatin [Zocor*] 100 mg PO BEDTIME PRN 05/19/16 lisinopriL [Prinivil*] 10 mg PO DAILY 05/19/16 Sildenafil Citrate 100 mg PO PRN PRN 08/26/19 Amlodipine [Norvasc*] 10 mg PO DAILY #30 tab 04/14/21 levETIRAcetam [Keppra Tab] 500 mg PO BID #60 tab 04/14/21 Ezetimibe [Zetia] 10 mg PO DAILY 12/15/23 Fenofibrate [Tricor] 48 mg PO DAILY 12/15/23 Semaglutide [Ozempic] 0.5 mg SQ SEECOM 12/15/23 - Past Medical/Surgical History Diabetic: Yes -: Hypertension, Diabetes mellitus -: Hyperlipidemia -: Peripheral neuropathy -: Obesity -: History of GERD -: Diabetes mellitus -: cataract sx -: cholecystectomy - Family History Father Medical History: Cancer Notes: prostate CA Mother Medical History: Heart disease Brother Medical History: GI disease Notes: crohn's, ulcerative colitis - Social History Alcohol use: No CD- Drugs: No Caffeine use: Yes Review of Systems General: Unremarkable Eyes: Unremarkable ENT: Unremarkable Respiratory: Unremarkable Cardiovascular: As per HPI Gastrointestinal: Nausea, Abdominal Pain Genitourinary: Unremarkable Musculoskeletal: Unremarkable Integumentary: Unremarkable Neurological: Unremarkable Lymphatics: Unremarkable Physical Examination Temp Pulse Resp BP Pulse Ox 98.7 F 121 H 18 160/98 H 100 12/15/23 08:00 12/15/23 08:00 12/15/23 10:19 12/15/23 08:00 12/15/23 10:19 General: Alert, In no apparent distress, Cooperative HEENT: Atraumatic, Normocephalic Neck: Supple Respiratory: Clear to auscultation bilaterally, Normal air movement Cardiovascular: Other (Tachy, mostly regular) Gastrointestinal: Non-distended, No guarding, Other (Some epigastric TTP) Musculoskeletal: No swelling, No tenderness Integumentary: No rashes Neurological: Normal speech, Normal tone, Normal affect Laboratory Data (last 24 hrs) 12/15/23 12/14/23 12/14/23 03:36 23:18 23:18 WBC 11.20 H Hgb 15.3 Hct 45.0 Plt Count 215 PT 11.0 INR 0.98 Sodium 138 Potassium 3.6 D BUN 11 Creatinine 0.73 Glucose 254 H Magnesium Total Bilirubin AST ALT Alkaline Phosphatase Lipase 12/14/23 23:18 WBC Hgb Hct Plt Count PT INR Sodium 137 Potassium 3.0 L BUN 13 Creatinine 0.75 Glucose 285 H Magnesium 1.4 L Total Bilirubin 0.6 AST 15 ALT 29 Alkaline Phosphatase 62 Lipase 490 H Conclusions/Impression: A/P) 1. Acute metab acidosis with AG and non gap acidosis, delta ratio < 1 in the setting of positive serum ketones with elevated BG/possible pancreatitis, other and with non gap acidosis in the setting of NS IVF, other. 2. Given bicarb deficit persisting, switch to bicarb added IVF, trend gap which is slightly lower. 3. Renal function test appear to be within limits however pt likely received contrast with CTA in the ER, monitor closely 4. Despite accelerated HTN, given the above and possible acute pancreatitis/other, cont IVF 5. Accelerated HTN, chronic HTN -will add Amlodipine/Coreg and resume Lisinopril from evening since renal function stable for now 6. Type II DM with hyperglycemia -management per IM 7. Epigastric pain, unspecified -management per iM
--- NOTE | 2023-12-15 12:50 | RAD REPORT ---
EXAM DESCRIPTION: RAD - Chest Single View - 12/14/2023 11:24 pm CLINICAL HISTORY: 58 years Male, CHEST PAIN COMPARISON: None. FINDINGS: Single portable AP upright view of the chest. Trachea is midline. Normal size of the cardi ac silhouette. No pulmonary vascular congestion. No focal consolidation, pleural effusion, or pneumot horax. No acute osseous abnormality. IMPRESSION: No acute radiographic abnormality. Electronically signed by: Tamera Carlton MD 12/14/2023 11:36 PM CDT Due to temporary technical issues with the PACS/Fluency reporting system, reports are being signed by the in house radiologist without review as a courtesy to ensure prompt reporting. The interpreting r adiologist is fully responsible for the content of the report.
--- NOTE | 2023-12-15 12:55 | RAD REPORT ---
EXAM DESCRIPTION: CT - Angio Aorta For Dissection - 12/15/2023 6:53 am CLINICAL HISTORY: 58 years, Male, Chest pain, back pain, abdominal pain. COMPARISON: XR Chest 12/14/[address] Abdomen pelvis 08/26/2019. TECHNIQUE: Multiple transaxial tomograms of the thoracic and abdominal aorta were performed utilizin g 3 mm slice thickness at 3 mm interval reconstruction, from the lung apices to the ischial tuberosit ies, before and after the administration of large bolus of IV contrast for complete opacification of the thoracic, abdominal aorta and iliac arteries. 2-D and 3-D multiplanar reformats, volume rendering technique and maximum intensity projection images were generated and reviewed. An individualized dose optimization technique, Automated Exposure Control, was utilized for the perfo rmed procedure. FINDINGS: Thoracic aorta/great vessels: The thoracic aorta demonstrate to be within normal limits. No evidence for significant aneurysm and/o r dilatation. Very minimal peripheral plaque. There is normal branching pattern of the great vessels with no evidence for significant proximal stenosis and/or occlusion Aorta/iliac arteries: The visualized abdominal aorta is patent without significant aneurysmal dilatation or evidence of dis section. There is minimal peripheral atheromatous plaque. Bilateral common iliac arteries are patent minimal peripheral atheromatous plaque. No significant adrienne nosis, no significant dilatation and/or aneurysm. The celiac trunk, superior mesenteric and inferior mesenteric artery demonstrate to be patent with no evidence for significant stenosis and/or occlusion. There are single bilateral renal arteries with no significant abnormalities. Chest: Lower neck: Visualized thyroid gland and soft tissues are normal. No adenopathy. Lungs: The lung parenchyma demonstrate to be clear. No evidence of airspace or interstitial process. No significant pulmonary nodules and/or masses identified. No focal areas of consolidation. Airways: The trachea mainstem bronchus demonstrate to be unremarkable. Pleural: There are no pleural effusion. No evidence for pneumothorax. Hemidiaphragms are normally pos itioned. Mediastinum and lymph nodes: No significant mediastinal and/or hilar lymphadenopathy. The axillary re gions demonstrate to be clear. Heart: Normal size. No pericardial thickening or effusion. Coronary: Mild coronary calcification. Pulmonary arteries: The central pulmonary arteries demonstrate to be within normal limits. No evidenc e for significant central filling defect to suggest pulmonary embolus. Osseous structures and chest wall: There is anterior spondylosis within the mid/lower thoracic spine. Abdomen and pelvis: Liver: The liver demonstrated presence of decreased attenuation corresponding to mild fatty infiltrat ion. Gallbladder: Surgical clips within the gallbladder fossa corresponding to previous cholecystectomy. N o significant biliary duct dilatation. Adrenal glands: The adrenal glands demonstrate to be normal. Pancreas: The pancreas is decreased in size/mildly atrophic with prominence of the pancreatic head wh ere there is slight prominence and peripancreatic haziness perhaps just in the possibility of acute p ancreatitis. Spleen: The spleen demonstrate to be within normal limits. Kidneys: The kidneys demonstrate normal uptake of contrast media. There is no evidence for nephroli thiasis and/or hydronephrosis. GI: Grossly the unopacified stomach, small bowel and large bowel demonstrate to be within normal limi ts. No evidence for bowel dilatation and/or free air. The appendix is normal. The left-sided colon de monstrate to be decompressed with no gross abnormalities. : The urinary bladder demonstrate to be well distended. Genitalia: The prostate gland is normal. Retroperitoneum: There is no retroperitoneal lymphadenopathy. There is no evidence for ascites and/or abnormal fluid collections. Bones: The bony structures demonstrate to be within normal limits. No evidence for compression deform ity and/or significant skeletal lesions. Soft tissues: There is a small left inguinal hernia containing omentum. IMPRESSION: No evidence for significant aneurysmal dilatation or evidence of dissection of the thora cic or abdominal aorta. Mild coronary artery calcification. Mild fatty infiltration of the liver. Status post cholecystectomy. Small left inguinal hernia containing omentum. Slight prominence of the pancreatic head with minimal peripancreatic haziness possibility of mild acu te pancreatitis could be of consideration, correlate with amylase and lipase. Electronically signed by: Tung Stevenson MD 12/15/2023 02:13 AM CDT Due to temporary technical issues with the PACS/Fluency reporting system, reports are being signed by the in house radiologist without review as a courtesy to ensure prompt reporting. The interpreting r adiologist is fully responsible for the content of the report.
[2023-12-15 13:51] LABS: Anion Gap 21.7 mEq/L (5.0-15.0); Potassium 3.7 mEq/L (3.5-5.1)
[2023-12-15] MEDS: carvediloL 12.5 MG TAB PO SCH (13:52)
[2023-12-15] MEDS: INSULIN REGULAR (HUMAN) 100 UNIT/ML SQ SCH (13:52)
[2023-12-15] MEDS ORDERED: Ringers Lactate 1,000 ML IV ONE (14:39)
--- NOTE | 2023-12-15 15:15 | P.PN ---
Date of Service: 12/15/23 Subjective: Still with epigastric abdominal pain, nausea Moderate pain relief with Dilaudid Still n.p.o. at this time ROS: 10 point ROS as noted above, otherwise negative Physical exam GEN: Alert, oriented, NAD HEENT: Normal conjunctiva, sclera anicteric CV: Regular rate and rhythm, no edema Pulm: Nonlabored respirations on room air ABD: Soft, moderate epigastric tenderness, nondistended MSK: No joint tenderness Integumentary: No rashes Neuro: Normal speech, normal affect Vitals reviewed Assessment Acute pancreatitis Metabolic acidosis Diabetes mellitus type [id number] with hyperglycemia Hypertension Hyperlipidemia Seizure disorder Plan Acute pancreatitis Metabolic acidosis Continue IV fluids, as needed pain medications and antiemetics Nephrology consulted given metabolic acidosis, fluid switched to bicarb containing IV fluids Repeat chemistry this afternoon shows mild worsening acidosis compared to this morning Repeat chemistry this evening Reports he was previously alcoholic but had not drank for many months Possibly related to Ozempic Triglycerides not significantly elevated Diabetes mellitus type [id number]-[id number] with hyperglycemia Every 6 hours Accu-Chek, sliding scale insulin Hypertension Hyperlipidemia Seizure disorder Continue home medications once verified VTE: Lovenox Code: Full Dispo: 2 to 3 days Time Spent Managing Pts Care (In Minutes): 35
[2023-12-15 17:58] LABS: Anion Gap 18.9 mEq/L (5.0-15.0); Potassium 3.9 mEq/L (3.5-5.1)
[2023-12-15] MEDS: lisinopriL 20 MG TAB PO SCH (21:02)
[2023-12-16 06:41] LABS: Hematocrit 44.1 % (39.6-49.0); Hemoglobin 15.1 g/dL (13.6-17.9); MCH 33.1 pg (27.0-35.0); MCHC 34.4 g/dL (32.0-36.0); MCV 96.3 fL (80-100); MPV 7.9 fL (7.6-11.3); Platelets 228 thou/uL (152-406); RBC Red Blood Cell Count 4.58 M/uL (4.33-5.43); Red Cell Distribution Width 13.2 % (12.1-15.2)
[2023-12-16 07:05] LABS: Albumin 3.6 g/dL (3.4-5.0); Albumin/Globulin Ratio 0.9 (1.1-1.8); Anion Gap 21.5 mEq/L (5.0-15.0); Bilirubin Total 0.8 mg/dL (0.2-1.0); Globulin 4.2 g/dL (2.3-3.5); Potassium 3.5 mEq/L (3.5-5.1); Protein, Total 7.8 g/dL (6.4-8.2)
[2023-12-16] MEDS: Ringers Lactate 1,000 ML IV ONE ×2 (07:33→08:04)
[2023-12-16] MEDS: PANTOPRAZOLE 40 MG INJ IVP SCH (08:05)
[2023-12-16] MEDS: NACHLORIDE 0.45% 1,000 ML with NA BICARB 8.4% 75 MEQ IV SCH (09:00)
[2023-12-16] MEDS: AMLODIPINE 10 MG TAB PO SCH (12:11)
[2023-12-16 14:12] LABS: Anion Gap 18.3 mEq/L (5.0-15.0); Potassium 3.3 mEq/L (3.5-5.1)
--- NOTE | 2023-12-16 15:16 | P.PN ---
Date of Service: 12/16/23 Subjective: Epigastric pain improving Tolerating clear liquids Metabolic acidosis persisting ROS: 10 point ROS as noted above, otherwise negative Physical exam GEN: Alert, oriented, NAD HEENT: Normal conjunctiva, sclera anicteric CV: Regular rate and rhythm, no edema Pulm: Nonlabored respirations on room air ABD: Soft, moderate epigastric tenderness, nondistended MSK: No joint tenderness Integumentary: No rashes Neuro: Normal speech, normal affect Vitals reviewed Assessment Acute pancreatitis Metabolic acidosis Diabetes mellitus type [id number]-egeyvlrfq with hyperglycemia Hypertension Hyperlipidemia Seizure disorder Plan Acute pancreatitis Metabolic acidosis Continue IV fluids, as needed pain medications and antiemetics Nephrology consulted given metabolic acidosis, fluid switched to bicarb containing IV fluids Still with some metabolic acidosis IV fluids continued Advance to full liquid diet Reports he was previously alcoholic but had not drank for many months Possibly related to Ozempic Triglycerides not significantly elevated Diabetes mellitus type [id number]-rvlppub-hxjzvflsv with hyperglycemia Every 6 hours Accu-Chek, sliding scale insulin Hypertension Hyperlipidemia Seizure disorder Continue home medications once verified VTE: Lovenox Code: Full Dispo: 2 to 3 days Time Spent Managing Pts Care (In Minutes): 35
[2023-12-16 18:13] LABS: Arterial Blood Carboxyhemoglob 1.6 % (0-1.5); Blood Gas Oxyhemoglobin 87.6 % (94-97); Blood Gas THB 16.6 g/dl (12-18)
[2023-12-16 18:15] LABS: Blood Gas Inspired Oxygen 0.2 %
[2023-12-17] MEDS ORDERED: SILDENAFIL CITRATE 20 MG TABLET PO PRN (00:16)
[2023-12-17] MEDS ORDERED: HOME MED 1 EA UNK (Simvastatin [Zocor*] 40 MG Tablet) PO PRN (00:16)
[2023-12-17] MEDS: ACETAMINOPHEN 500 MG TAB PO PRN (00:34)
[2023-12-17 05:48] VITALS: BMI 28.7
[2023-12-17 06:58] LABS: Hematocrit 46.5 % (39.6-49.0); Hemoglobin 15.6 g/dL (13.6-17.9); MCH 32.5 pg (27.0-35.0); MCHC 33.5 g/dL (32.0-36.0); MCV 96.9 fL (80-100); MPV 8.2 fL (7.6-11.3); Platelets 230 thou/uL (152-406); Red Cell Distribution Width 13.4 % (12.1-15.2)
[2023-12-17 07:18] LABS: Albumin 3.3 g/dL (3.4-5.0); Albumin/Globulin Ratio 0.8 (1.1-1.8); Anion Gap 20.1 mEq/L (5.0-15.0); Bilirubin Total 0.7 mg/dL (0.2-1.0); Globulin 4.1 g/dL (2.3-3.5); Potassium 3.1 mEq/L (3.5-5.1); Protein, Total 7.4 g/dL (6.4-8.2)
[2023-12-17] MEDS: FENOFIBRATE 48 MG TAB PO SCH (08:52)
[2023-12-17] MEDS: EZETIMIBE 10 MG TAB PO SCH (08:53)
[2023-12-17] MEDS: levETIRAcetam 500 MG TAB PO SCH (08:53)
[2023-12-17] MEDS ORDERED: AMLODIPINE 10 MG TAB PO SCH (09:00)
[2023-12-17] MEDS: HOME MED 1 EA UNK (Omeprazole [Omeprazole] 20 MG Capsule.Dr) PO SCH (09:00)
[2023-12-17] MEDS: lisinopriL 10 MG TAB PO SCH (10:23)
[2023-12-17] MEDS: INSULIN GLARGINE 100 UNIT/ML SQ SCH (10:24)
[2023-12-17] MEDS: WATER FOR INJ,STERILE 1,000 ML with NA BICARB 8.4% 150 MEQ IV SCH (11:54)
--- NOTE | 2023-12-17 11:54 | PN ---
Date of Progress Note: 12/17/2023 Subjective: Patient was seen and examined at bedside. He is doing much better. His abdominal pain is improving. Objective: Vital Signs: Reviewed. Blood pressures are in the 120s and pulse rate of 98 and the tem perature of 97. General: He appears in no acute distress. Lungs: Clear to auscultation. Abdomen: Soft and nontender. Extremities: No evidence of edema. No rebound or guarding was noted on evaluation of the abdomen. Laboratory Data: Showing creatinine stable, sodium of 134, and potassium of 3.1, bicarb of 14. CBC showing stable hemoglobin, hematocrit, and platelet count. Current Medications: Have been reviewed. Impression: 1.Acute pancreatitis, etiology unclear, improving clinically. 2.Metabolic acidosis secondary to ketosis from uncontrolled diabetes. At this time, patient may need insulin to correct his hyperglycemia, given the fact that he is just r ecovering from pancreatitis. I have discussed with the primary team about starting him on some long- acting insulin. In the meanwhile, in order to manage his acidosis, I will get him started on sterile water with 3 amps of sodium bicarbonate. However, this can worsen the potassium significantly becau se of increased bicarbonate administration leading to intracellular potassium shift. Hence, I will p ut him on scheduled potassium replacement at this time. Otherwise, overall he is doing better clinic ally from pancreatitis standpoint. He can possibly be transitioned over to oral intake and monitor. The plan was discussed with the primary team. All que stions were answered. VV/MODL Voice ID: [id number] Report ID: [id number]
[2023-12-17] MEDS: POTASSIUM CL SA 10 MEQ TAB PO SCH (12:02)
--- NOTE | 2023-12-17 15:10 | P.PN ---
Date of Service: 12/17/23 Subjective: Epigastric pain improving Tolerating full liquids Metabolic acidosis persist but improving ROS: 10 point ROS as noted above, otherwise negative Physical exam GEN: Alert, oriented, NAD HEENT: Normal conjunctiva, sclera anicteric CV: Regular rate and rhythm, no edema Pulm: Nonlabored respirations on room air ABD: Soft, moderate epigastric tenderness, nondistended MSK: No joint tenderness Integumentary: No rashes Neuro: Normal speech, normal affect Vitals reviewed Assessment Acute pancreatitis Metabolic acidosis Diabetes mellitus type [id number]-[id number]-izemckosc with hyperglycemia Hypertension Hyperlipidemia Seizure disorder Plan Acute pancreatitis Metabolic acidosis Continue IV fluids with bicarb, as needed pain medications and antiemetics Nephrology consulted given metabolic acidosis, fluid switched to bicarb containing IV fluids Still with some metabolic acidosis-bicarb increased, started on long-acting insulin Advance to full liquid diet-tolerating Reports he was previously alcoholic but had not drank for many months Possibly related to Ozempic Triglycerides not significantly elevated Diabetes mellitus type 6fyt-vplwotj-mhzqfihad with hyperglycemia Every 6 hours Accu-Chek, sliding scale insulin Hypertension Hyperlipidemia Seizure disorder Continue home medications once verified VTE: Lovenox Code: Full Dispo: 1 to 2 days Time Spent Managing Pts Care (In Minutes): 35
[2023-12-17 23:17] VITALS: O2SAT 97
[2023-12-18 06:54] LABS: Hematocrit 43.6 % (39.6-49.0); Hemoglobin 14.8 g/dL (13.6-17.9); MCH 32.2 pg (27.0-35.0); MCV 94.7 fL (80-100); MPV 7.8 fL (7.6-11.3); Platelets 222 thou/uL (152-406); Red Cell Distribution Width 13.3 % (12.1-15.2)
[2023-12-18 07:14] LABS: Albumin/Globulin Ratio 0.8 (1.1-1.8); Anion Gap 13.7 mEq/L (5.0-15.0); Bilirubin Total 0.5 mg/dL (0.2-1.0); Globulin 3.8 g/dL (2.3-3.5); Potassium 2.7 mEq/L (3.5-5.1); Protein, Total 6.8 g/dL (6.4-8.2)
[2023-12-18 08:06] VITALS: TEMP 97.1
[2023-12-18] MEDS: INSULIN GLARGINE 100 UNIT/ML SQ SCH (08:09)
[2023-12-18] MEDS: PANTOPRAZOLE 40MG TABLET PO SCH (08:10)
[2023-12-18] MEDS: KCL 20 MEQ/100 mL IVPB 20 MEQ/100 ML BAG IV SCH (08:34)
[2023-12-18] MEDS: NACHLORIDE 0.45% 1,000 ML IV SCH (09:48)
[2023-12-18 11:03] VITALS: BP 122/90
--- NOTE | 2023-12-18 13:00 | EKG ---
Test Date: 2023-12-14 Test Time: 22:54:27 Chair Mender: SARAH MEASUREMENT RESULTS: Intervals: Rate: 112 DE: 134 QRSD: 86 QT: 358 QTc: 488 Dustin: P: 34 DE: 134 QRS: -7 T: 31 INTERPRETIVE STATEMENTS: Sinus tachycardia Otherwise normal ECG Compared to ECG 06/22/2022 20:55:50 Sinus rhythm no longer present Electronically Signed On 12-18-23 12:50:59 CDT by Shaun Cha
--- NOTE | 2023-12-18 14:19 | P.PN ---
Date of Service: 12/18/23 Subjective: Epigastric pain improving Tolerating full liquids, wanting to try more solids today Metabolic acidosis resolved ROS: 10 point ROS as noted above, otherwise negative Physical exam GEN: Alert, oriented, NAD HEENT: Normal conjunctiva, sclera anicteric CV: Regular rate and rhythm, no edema Pulm: Nonlabored respirations on room air ABD: Soft, non-tender, nondistended MSK: No joint tenderness Integumentary: No rashes Neuro: Normal speech, normal affect Vitals reviewed Assessment Acute pancreatitis Metabolic acidosis Diabetes mellitus type 4uql-bgrwhfa-fubydwhpz with hyperglycemia Hypertension Hyperlipidemia Seizure disorder Plan Acute pancreatitis Metabolic acidosis Hypokalemia Metabolic acidosis resolved, patient with hypokalemia this morning Replete electrolytes started on long-acting insulin 12/16 Advance diet carb consistent Reports he was previously alcoholic but had not drank for many months Possibly related to Ozempic Triglycerides not significantly elevated Possible discharge later today versus tomorrow morning Diabetes mellitus type 3gog-[id number]-yklcjmibs with hyperglycemia Every 6 hours Accu-Chek, sliding scale insulin Hypertension Hyperlipidemia Seizure disorder Continue home medications once verified VTE: Lovenox Code: Full Dispo: 1 to 2 days Time Spent Managing Pts Care (In Minutes): 35
[2023-12-18 15:04] LABS: Anion Gap 9.2 mEq/L (5.0-15.0); Magnesium 1.7 mg/dL (1.6-2.4); Potassium 3.2 mEq/L (3.5-5.1)
--- NOTE | 2023-12-18 15:22 | P.DS ---
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 It is possible that his pancreatitis was related to GLP-1Ozempic. His triglycerides were within normal limits, he has not drink alcohol in many months. He was treated with IV fluids and pain medications, today he has tolerated a ADA diet without pain. His hospitalization was complicated with a metabolic acidosis which resolved with bicarb containing IV fluids and insulin. He was counseled to discontinue the use of his GLP-1 until follow-up with his PCP. He may resume taking his Jardiance and metformin tomorrow, continue all other home medications as previously prescribed. Please follow-up with your primary care doctor 1 to 2 weeks Vital Signs/Physical Exam: Temp Pulse Resp BP Pulse Ox 97.1 F 92 H 18 122/90 95 12/18/23 10:59 12/18/23 10:59 12/18/23 12:25 12/18/23 10:59 12/18/23 12:25 General: Alert, In no apparent distress, Oriented x3 HEENT: Atraumatic, PERRLA Neck: Supple, JVD not distended Respiratory: Clear to auscultation bilaterally, Normal air movement Cardiovascular: Regular rate/rhythm, Normal S1 S2 Gastrointestinal: Normal bowel sounds, No tenderness Musculoskeletal: No tenderness Integumentary: No rashes Neurological: Normal speech, Normal tone, Normal affect Laboratory Data at Discharge: WBC 6.50 thou/uL (4.3-10.9) 12/18/23 06:07 Hgb 14.8 g/dL (13.6-17.9) 12/18/23 06:07 Hct 43.6 % (39.6-49.0) 12/18/23 06:07 Plt Count 222 thou/uL (152-406) 12/18/23 06:07 PT 11.0 SECONDS (9.4-12.5) 12/14/23 23:18 INR 0.98 12/14/23 23:18 Sodium 136 mEq/L (136-145) 12/18/23 14:41 Potassium 3.2 mEq/L (3.5-5.1) L D 12/18/23 14:41 BUN 8 mg/dL (7-18) 12/18/23 14:41 Creatinine 0.83 mg/dL (0.70-1.30) 12/18/23 14:41 Glucose 280 mg/dL (74-106) H 12/18/23 14:41 Magnesium 1.7 mg/dL (1.6-2.4) 12/18/23 14:41 Total Bilirubin 0.5 mg/dL (0.2-1.0) 12/18/23 06:07 AST 14 U/L (15-37) L 12/18/23 06:07 ALT 23 U/L (16-61) 12/18/23 06:07 Alkaline Phosphatase 61 U/L (45-117) 12/18/23 06:07 Triglycerides 108 mg/dL (<150) 12/15/23 08:08 Cholesterol 184 mg/dL (<200) 12/15/23 08:08 HDL Cholesterol 79 mg/dL (40-60) H 12/15/23 08:08 Cholesterol/HDL Ratio 2.33 12/15/23 08:08 Lipase 78 U/L (13-75) H 12/18/23 06:07 Home Medications: Metformin HCl [Glucophage] 1,000 mg PO BID 05/19/16 Omeprazole 40 mg PO DAILY 05/19/16 Simvastatin [Zocor*] 40 mg PO BEDTIME 05/19/16 lisinopriL [Prinivil*] 10 mg PO DAILY 05/19/16 Sildenafil Citrate 100 mg PO PRN PRN 08/26/19 Amlodipine [Norvasc*] 10 mg PO DAILY #30 tab 04/14/21 levETIRAcetam [Keppra*] 500 mg PO BID #60 tab 04/14/21 Ezetimibe [Zetia*] 10 mg PO DAILY 12/15/23 Fenofibrate [Tricor*] 48 mg PO DAILY 12/15/23 Physician Discharge Instructions: Patient was admitted to the hospital for acute pancreatitis, metabolic acidosis. It is possible that his pancreatitis was related to GLP-1Ozempic. His triglycerides were within normal limits, he has not drink alcohol in many months. He was treated with IV fluids and pain medications, today he has tolerated a ADA diet without pain. His hospitalization was complicated with a metabolic acidosis which resolved with bicarb containing IV fluids and insulin. He was counseled to discontinue the use of his GLP-1 until follow-up with his PCP. He may resume taking his Jardiance and metformin tomorrow, continue all other home medications as previously prescribed. Please follow-up with your primary care doctor 1 to 2 weeks Diet: Medora Activity: Ad kylah Followup: Beata Paz FNP [Primary Care Provider] - 1-2 Weeks Time spent managing pt's care (in minutes): 38
[2023-12-18] MEDS: POTASSIUM CL SA 10 MEQ TAB PO ONE (15:33)
--- NOTE | 2023-12-18 20:29 | P.PN ---
Date of Service: 12/18/23 Vital Signs Temp Pulse Resp BP Pulse Ox 97.1 F 92 H 18 122/90 95 12/18/23 10:59 12/18/23 10:59 12/18/23 12:25 12/18/23 10:59 12/18/23 12:25 Assessment/ Plan: Nephrology No dyspnea No chest pain Feeling better No acute events overnight Vitals, medications, blood work and imaging reviewed in the chart NAD. MMM. NCAT. Normal Respiratory Effort/ CTA. S1S2. ND, NT Abd. No C/C/E. No rash. AAO. Normal speech. A/P HTN -Continue Lisinopril and Amlodipine -Continue Coreg Hypokalemia -Replete as ordered Hypomagnesemia -Replete prn AG Metabolic Acidosis, resolved DM II with Hyperglycemia -Continue Jaradtus MCQUEEN Case reviewed with Dr. Mendoza
[2023-12-18] MEDS ORDERED: ATORVASTATIN 20 MG TAB PO SCH (21:00)
== END 2023-12-18 16:34 | disposition home or self-care (01) | DRG 438 ==
LOC: ER 22:39 → ERHOLD 12-15 05:20 → 4TH 12-15 08:27
PROVIDERS: ADMIT Internal Medicine; ATTEND Hospitalist
PROC: 4A033R1 Measurement of Arterial Saturation, Peripheral, Percutaneous Approach (ICD-10-PCS; principal; 2023-12-16)
DX: K85.30 Drug induced acute pancreatitis without necrosis or infection (principal); E11.10 Type 2 diabetes mellitus with ketoacidosis without coma; T50.995A Adverse effect of other drugs, medicaments and biological substances, initial encounter; E11.42 Type 2 diabetes mellitus with diabetic polyneuropathy; E87.6 Hypokalemia; E78.5 Hyperlipidemia, unspecified; I10 Essential (primary) hypertension; E66.9 Obesity, unspecified; E83.41 Hypermagnesemia; K21.9 Gastro-esophageal reflux disease without esophagitis; G40.909 Epilepsy, unspecified, not intractable, without status epilepticus; Z88.8 Allergy status to other drugs, medicaments and biological substances; Z68.28 Body mass index [BMI] 28.0-28.9, adult; Z79.84 Long term (current) use of oral hypoglycemic drugs; Z90.49 Acquired absence of other specified parts of digestive tract; Z79.899 Other long term (current) drug therapy; Y92.9 Unspecified place or not applicable
CPT/HCPCS: 36415; 36600; 71045; 71275; 74175; 80048; 80053; 80061; 80076; 81001; 82010; 82805; 82947; 83605; 83690; 83735; 83880; 84132; 84484; 85025; 85027; 85379; 85610; 93005; 99284; J1170; J1650; J2270; J2405; J2470; J2765; J3475; J3480; J7030; J7120; Q9967

== ENCOUNTER 2024-04-15 12:32 | Inpatient (IN) | payer OTHER ==
[2024-04-15] MEDS ORDERED: ONDANSETRON 4 MG/2 ML VIAL ONE (13:30)
[2024-04-15] MEDS ORDERED: NA CHLORIDE 0.9% 1,000 ML ONE (13:31)
[2024-04-15] MEDS ORDERED: MORPHINE 4 MG/ML SYR ONE (13:31)
[2024-04-15 13:54] LABS: Absolute Lymphocytes (CBC) 1.2 K/uL (0.7-4.9); Absolute Monocytes 1.2 K/uL (0.1-1.3); Absolute Neutrophil 6.8 K/uL (1.8-8.0); Basophils % 0.3 % (0-1.3); Eosinophils % 0.3 % (0-4.4); Hematocrit 51.6 % (39.6-49.0); Hemoglobin 17.2 g/dL (13.6-17.9); Lymphocytes % 13.1 % (15.3-44.8); MCH 32.4 pg (27.0-35.0); MCHC 33.3 g/dL (32.0-36.0); MCV 97.1 fL (80-100); MPV 8.3 fL (7.6-11.3); Monocytes % 12.8 % (3.3-12.3); Neutrophils % 73.5 % (41.7-73.7); Nucleated Red Blood Cells % 0.1 % (0-0); Platelets 209 thou/uL (152-406); RBC Red Blood Cell Count 5.31 M/uL (4.33-5.43); Red Cell Distribution Width 12.9 % (12.1-15.2)
[2024-04-15 14:10] LABS: PT Prothrombin Time 11.7 SECONDS (9.4-12.5); PTT, Activated Partial Thromb 41.7 SECONDS (24.3-36.9); Protime INR 1.12
[2024-04-15 14:12] LABS: Albumin 4.2 g/dL (3.4-5.0); Albumin/Globulin Ratio 0.9 (1.1-1.8); Anion Gap 27.4 mEq/L (5.0-15.0); Bilirubin Total 0.9 mg/dL (0.2-1.0); Globulin 4.7 g/dL (2.3-3.5); Magnesium 1.6 mg/dL (1.6-2.4); Potassium 3.4 mEq/L (3.5-5.1); Protein, Total 8.9 g/dL (6.4-8.2)
[2024-04-15 14:49] LABS: Blood Gas Oxyhemoglobin 94.6 % (94-97); Blood Gas THB 16.9 g/dl (12-18); Blood O2 Saturation 97.5 % (92-98.5)
--- NOTE | 2024-04-15 15:13 | RAD REPORT ---
EXAMINATION: CT Abdomen Pelvis W Contrast CLINICAL INDICATION: Male, 59 years old. ABD PAIN TECHNIQUE: CT abdomen and pelvis was performed, after the administration of IV contrast, [facility]. Axial, sagittal and coronal reconstructions were obtained. One or more of the following dose reduction techniques were used: Automated exposure control, adjustment of the mA and k V according to patient size, and iterative reconstruction. Unless otherwise specified, incidental findings do not require dedicated imaging follow-up. COMPARISON: 12/15/2023. FINDINGS: LOWER CHEST: The visualized lung bases are clear. LIVER: Significant fatty liver with hepatomegaly present. No focal lesion or biliary dilitation. BILIARY SYSTEM: Status post cholecystectomy. SPLEEN: Normal size. No focal lesion. PANCREAS: Fat stranding and mild swelling along the uncinate process. Calcification along the pancrea tic head are stable, suggesting sequelae of chronic pancreatitis. No mass, ductal dilation, or pepe-pancreatic fluid. ADRENALS: Normal; no mass. KIDNEYS: Bilateral lower pole nonobstructing calculi, not exceeding 1 2 mm. Normal size and contour. No hydronephrosis. URINARY BLADDER: Unremarkable. GASTROINTESTINAL TRACT: No evidence of free air, significant intra-abdominal free fluid, bowel obstru ction or abscess. APPENDIX: Normal appendix. LYMPH NODES: No lymphadenopathy. MUSCULOSKELETAL: No acute or suspicious osseous abnormality. ADDITIONAL FINDINGS: Left inguinal hernia containing fat, stable. IMPRESSION: Fat stranding and mild swelling along the uncinate process, improved since the prior exam. Please cor relate clinically and with lipase levels for non-resolved acute pancreatitis. Tiny bilateral renal nonobstructing calculi. Diffuse hepatic steatosis.
[2024-04-15] MEDS: D5W 1,000 ML with NA BICARB 8.4% 150 MEQ IV SCH (15:15)
--- NOTE | 2024-04-15 15:57 | ER ---
Nurse's Notes [facility] Name: Seth Flowers Age: 59 yrs Sex: Male : 1965 Arrival Date: 04/15/2024 Time: 12:32 Bed 5 Private MD: Diagnosis: Other acute pancreatitis without necrosis or infection;Acidosis-metabolic Presentation: 04/15 13:07 Chief complaint: Patient states: RUQ abdominal pain that radiates to back. Pt reports cm10 nausea and 1 episode of diarrhea. Coronavirus screen: Client denies travel out of the [place] in the last 14 days. Ebola Screen: Patient denies travel to an Ebola-affected area in the 21 days before illness onset. Initial Sepsis Screen: Does the patient meet any 2 criteria? HR > 90 bpm. Does the patient have a suspected source of infection? No. Patient's initial sepsis screen is negative. Risk Assessment: Do you want to hurt yourself or someone else? Patient reports no desire to harm self or others. Onset of symptoms was April 15, 2024. 13:07 Method Of Arrival: Ambulatory cm10 13:07 Acuity: SATHISH 3 cm10 Triage Assessment: 13:09 General: Appears in no apparent distress. uncomfortable, Behavior is calm, cooperative. cm10 Neuro: No deficits noted. Level of Consciousness is awake, alert, obeys commands, Oriented to person, place, time, situation, Appropriate for age. Historical: - Allergies: 13:08 Celebrex; cm10 13:08 Vioxx; cm10 - PMHx: 13:08 Diabetes - IDDM; GERD; Heart Murmur; Hypertension; Multiple Sclerosis; Tachycardia cm10 (Multiple Sclerosis); - PSHx: 13:08 Cholecystectomy; lumpectomy; cm10 - Immunization history:: Adult Immunizations up to date. - Infectious Disease History:: Denies. - Social history:: Smoking status: Patient denies any tobacco usage or history of. Screenin:27 Abuse screen: Denies threats or abuse. Nutritional screening: No deficits noted. ap3 Tuberculosis screening: No symptoms or risk factors identified. 13:43 [facility] ED Fall Risk Assessment (Adult) History of falling in the last 3 months, ap3 including since admission No falls in past 3 months (0 pts) Confusion or Disorientation No (0 pts) Intoxicated or Sedated No (0 pts) Impaired Gait No (0 pts) Mobility Assist Device Used No (0 pt) Altered Elimination No (0 pt) Score/Fall Risk Level 0 - 2 = Low Risk Oriented to surroundings, Maintained a safe environment, Educated pt \T\ family on fall prevention, incl call for assistance when getting out of bed, Assessed \T\ reinforced patient's understanding of fall precautions, Hourly rounding (assess needs \T\ fall precautionary measures) done, Used ambulatory aids as needed (educated on \T\ assisted with), Used gait belt as appropriate. Assessment: 13:43 General: Appears uncomfortable, Behavior is calm, cooperative, appropriate for age. ap3 Pain: Complains of pain in abdomen Pain began gradually. Neuro: Level of Consciousness is awake, alert, obeys commands, Oriented to person, place, time, situation, Appropriate for age. Cardiovascular: Patient's skin is warm and dry. Respiratory: Airway is patent Respiratory effort is even, unlabored, Respiratory pattern is regular, symmetrical. GI: Abd is soft Reports upper abdominal pain, nausea. 15:14 Reassessment: Patient appears in no apparent distress at this time. Patient and/or jb4 family updated on plan of care and expected duration. Pain level reassessed. Patient is alert, oriented x 3, equal unlabored respirations, skin warm/dry/pink. Vital Signs: 13:07 BP 155 / 96; Pulse 145; Resp 19; Temp 97.7(O); Pulse Ox 100% on R/A; Weight 86.18 kg; cm10 Height 5 ft. 8 in. ; Pain 10/10; 13:40 BP 153 / 96; Pulse 119; ap3 15:14 BP 149 / 83; Pulse 130; Resp 16; Pulse Ox 100% on R/A; jb4 15:23 BP 149 / 83; Pulse 120; Resp 18; Pulse Ox 100% on R/A; ap3 13:07 Body Mass Index 28.89 (86.18 kg, 172.72 cm) cm10 13:07 Pain Scale: Adult cm10 ED Course: 12:37 Patient arrived in ED. ra3 12:39 Brandie Díaz PA-C is [facility]. sb4 12:39 Homer Mendoza MD is Attending Physician. sb4 13:08 Triage completed. cm10 13:09 Arm band placed on right wrist. Patient placed in an exam room, on a stretcher. cm10 13:26 Patient has correct armband on for positive identification. Placed in gown. Bed in low ap3 position. Call light in reach. Side rails up X 1. Adult w/ patient. Provided Education on: call light education . Client placed on continuous cardiac and pulse oximetry monitoring. NIBP monitoring applied. interactive media marketing strategist on. Pulse ox on. NIBP on. 13:26 EKG done, by ED staff, reviewed by Brandie Daíz PA-C. ap3 13:36 Inserted saline lock: 18 gauge in right antecubital area, using aseptic technique. kc6 Blood collected. Flushed with 10 mL NS. Patient maintains SpO2 saturation greater than 95% on room air. 13:39 Sudha Barrera, RN is Primary Nurse. ap3 13:43 No provider procedures requiring assistance completed. ap3 14:24 CT Abd/Pelvis - IV Contrast Only In Process Unspecified. EDMS 15:55 Boris Arnold is Hospitalizing Provider. sb4 Administered Medications: 13:39 Drug: Ondansetron IVP 4 mg IVP once; over 2 minutes Route: IVP; Site: right antecubital;ap3 15:57 Follow up: Response: No adverse reaction kc6 13:39 Drug: morphine IVP or IV 4 mg IVP once over 4 mins Route: IVP; Infused Over: 4 mins; ap3 Site: right antecubital; 15:57 Follow up: Response: No adverse reaction; Pain is unchanged, physician notified; RASS: kc6 Alert and Calm (0) 13:39 Drug: NS 0.9% IV 1000 ml IV at 1 bolus Per protocol; to be given as a bolus over 60 ap3 minutes Route: IV; Rate: 1 bolus; Site: right antecubital; 15:12 Drug: D5W IV 1000 ml, Sodium Bicarbonate IVP 150 mEq IV at 75 ml/hr continuous Route: jb4 IV; Rate: 75 ml/hr; Site: right antecubital; 16:06 Drug: HYDROmorphone IVP 1 mg IVP once Route: IVP; Site: right antecubital; jb4 Medication: 13:44 VIS not applicable for this client. ap3 Outcome: 15:56 Decision to Hospitalize by Provider. sb4 18:09 Patient left the ED. iw Signatures: Dispatcher [employer] EDDidi Meraz, RN RN iw Israel Angeles RN RN jb4 Sudha Barrera RN RN [email or web address] Kailyn Lehman RN RN kc6 Brandie Díaz PAWilliam PAWilliam [email or web address] Sarahy Perez RN RN cm10 Ruba Musa ra3 Corrections: (The following items were deleted from the chart) 13:09 13:07 BP 155 / 96; Pulse 145bpm; Resp 19bpm; Pulse Ox 100% RA; Temp 97.7F Oral; 86.18 cm10 kg; cm10
--- NOTE | 2024-04-15 15:57 | EDPHYS ---
Physician Documentation [facility] Name: Seth Flowers Age: 59 yrs Sex: Male : 1965 Arrival Date: 04/15/2024 Time: 12:32 Bed 5 Private MD: ED Physician Homer Mendoza HPI: 04/15 13:47 This 59 yrs old Male presents to ER via Ambulatory with complaints of Abdominal Pain - sb4 Upper nausea. 13:47 The patient presents with abdominal pain in the epigastric area. Onset: The sb4 symptoms/episode began/occurred last night. The symptoms radiate to back. Associated signs and symptoms: Pertinent positives: nausea and vomiting. The symptoms are described as sharp. Modifying factors: The symptoms are alleviated by nothing, the symptoms are aggravated by food. The patient has experienced a previous episode, approximately 4 months ago, and the symptoms today are exactly the same, when diagnosed with pancreatitis. The patient has not recently seen a physician. Epigastric abdominal pain associated with nausea and vomiting that began last night. States that he was diagnosed with pancreatitis about 4 months ago, was thought to be secondary to Ozempic. States that he has since discontinue that medication. 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 Does report a history of hyperlipidemia but is on statin. Historical: - Allergies: 13:08 Celebrex; cm10 13:08 Vioxx; cm10 - PMHx: 13:08 Diabetes - IDDM; GERD; Heart Murmur; Hypertension; Multiple Sclerosis; Tachycardia cm10 (Multiple Sclerosis); - PSHx: 13:08 Cholecystectomy; lumpectomy; cm10 - Immunization history:: Adult Immunizations up to date. - Infectious Disease History:: Denies. - Social history:: Smoking status: Patient denies any tobacco usage or history of. ROS: 13:47 Constitutional: Negative for fever, chills, and weight loss, sb4 13:47 Abdomen/GI: Positive for abdominal pain, nausea and vomiting, 13:47 All other systems are negative, Exam: 13:47 Constitutional: This is a well developed, well nourished patient who is awake, alert, sb4 and in no acute distress. Head/Face: Normocephalic, atraumatic. Eyes: Extra-ocular motions intact. Periorbital areas with no swelling, redness, or edema. ENT: Mucous membranes moist. Respiratory: No increased work of breathing, no retractions or nasal flaring. Skin: Warm, dry with normal turgor. Normal color with no rashes, no lesions, and no evidence of cellulitis. 13:47 Cardiovascular: Rate: tachycardic, Rhythm: regular, 13:47 Abdomen/GI: Inspection: abdomen appears normal, Palpation: soft, mild abdominal tenderness, in the epigastric area, voluntary guarding, is not appreciated, Vital Signs: 13:07 BP 155 / 96; Pulse 145; Resp 19; Temp 97.7(O); Pulse Ox 100% on R/A; Weight 86.18 kg; cm10 Height 5 ft. 8 in. ; Pain 10/10; 13:40 BP 153 / 96; Pulse 119; ap3 15:14 BP 149 / 83; Pulse 130; Resp 16; Pulse Ox 100% on R/A; jb4 15:23 BP 149 / 83; Pulse 120; Resp 18; Pulse Ox 100% on R/A; ap3 13:07 Body Mass Index 28.89 (86.18 kg, 172.72 cm) cm10 13:07 Pain Scale: Adult cm10 MDM: 13:09 Medical Screening Exam initiated sb4 14:47 Data reviewed: vital signs, nurses notes, lab test result(s), radiologic studies, I sb4 have discussed the patient's presentation/case with the attending Emergency Department Physician;. 15:55 Counseling: I had a detailed discussion with the patient and/or guardian regarding the sb4 historical points, exam findings, and any diagnostic results supporting the discharge/admit diagnosis, the presence of at least one elevated blood pressure reading (>120/80) during this emergency department visit, lab results, radiology results, the need for further work-up and treatment in the hospital. 04/15 13:10 Order name: Blood Culture Adult (2) 4 04/15 13:10 Order name: CBC with Diff; Complete Time: 13:58 sb4 04/15 13:10 Order name: CMP; Complete Time: 14:14 sb4 04/15 13:10 Order name: Lactate w/ 2H reflex if indic.; Complete Time: 14:11 sb4 04/15 13:10 Order name: Protime (+inr); Complete Time: 14:11 sb4 04/15 13:10 Order name: Ptt, Activated; Complete Time: 14:11 sb4 04/15 13:10 Order name: Urinalysis w/ reflexes sb4 04/15 13:10 Order name: Lipase; Complete Time: 14:14 sb4 04/15 13:11 Order name: Magnesium; Complete Time: 14:14 sb4 04/15 14:13 Order name: ABG: vbg sb4 04/15 16:27 Order name: CBC with Automated Diff EDMS 04/15 16:27 Order name: CBC with Automated Diff EDMS 04/15 16:27 Order name: CBC with Automated Diff EDMS 04/15 16:27 Order name: CBC with Automated Diff EDMS 04/15 16:27 Order name: CBC with Automated Diff EDMS 04/15 16:27 Order name: CBC with Automated Diff EDMS 04/15 16:27 Order name: CBC with Automated Diff EDMS 04/15 16:27 Order name: CBC with Automated Diff EDMS 04/15 16:27 Order name: Lipase EDMS 04/15 16:27 Order name: Lipase EDMS 04/15 16:27 Order name: Lipase EDMS 04/15 16:27 Order name: Lipase EDMS 04/15 16:27 Order name: Lipase EDMS 04/15 16:27 Order name: Lipase EDMS 04/15 16:27 Order name: Lipase EDMS 04/15 16:27 Order name: Lipase EDMS 04/15 16:27 Order name: Lipid Profile EDMS 04/15 16:27 Order name: Lipid Profile EDMS 04/15 16:27 Order name: Magnesium EDMS 04/15 16:27 Order name: Magnesium EDMS 04/15 16:27 Order name: Magnesium EDMS 04/15 16:27 Order name: Magnesium EDMS 04/15 16:27 Order name: Magnesium EDMS 04/15 16:27 Order name: Magnesium EDMS 04/15 16:27 Order name: Magnesium EDMS 04/15 16:27 Order name: Magnesium EDMS 04/15 16:27 Order name: Phosphorus EDMS 04/15 16:27 Order name: Phosphorus EDMS 04/15 16:27 Order name: Phosphorus EDMS 04/15 16:27 Order name: Phosphorus EDMS 04/15 16:27 Order name: Phosphorus EDMS 01/13 16:27 Order name: Phosphorus EDMS 04/15 16:27 Order name: Phosphorus EDMS 04/15 16:27 Order name: Phosphorus EDMS 04/15 16:39 Order name: Basic Metabolic Panel EDMS 04/15 16:40 Order name: Comprehensive Metabolic Panel EDMS 04/15 16:40 Order name: Comprehensive Metabolic Panel EDMS 04/15 16:40 Order name: Comprehensive Metabolic Panel EDMS 04/15 16:40 Order name: Comprehensive Metabolic Panel EDMS 04/15 16:40 Order name: Comprehensive Metabolic Panel EDMS 04/15 16:40 Order name: Comprehensive Metabolic Panel EDMS 04/15 16:40 Order name: Comprehensive Metabolic Panel EDMS 04/15 16:40 Order name: Comprehensive Metabolic Panel EDMS 04/15 13:10 Order name: CT Abd/Pelvis - IV Contrast Only; Complete Time: 15:16 sb4 04/15 13:10 Order name: Accucheck; Complete Time: 13:36 sb4 04/15 13:10 Order name: Cardiac monitoring; Complete Time: 13:27 sb4 04/15 13:10 Order name: EKG - Nurse/Tech; Complete Time: 13:27 sb4 04/15 13:10 Order name: IV Saline Lock - Large Bore; Complete Time: 13:36 sb4 04/15 13:10 Order name: Labs collected and sent; Complete Time: 13:36 sb4 04/15 13:10 Order name: O2 Per Protocol; Complete Time: 13:27 sb4 04/15 13:10 Order name: O2 Sat Monitoring; Complete Time: 13:28 sb4 04/15 13:10 Order name: Vital Signs; Complete Time: 13:13 sb4 EC:30 Rate is 127 beats/min. Rhythm is regular, Sinus tachycardia. [place] interval is normal at sb4 130 msec. QRS interval is normal at 78 msec. QT interval is normal at 316 msec. No Q waves. T waves are Normal. No ST changes noted. Clinical impression: Sinus tachycardia. Interpreted by me. Reviewed by me. Administered Medications: 13:39 Drug: Ondansetron IVP 4 mg IVP once; over 2 minutes Route: IVP; Site: right antecubital;ap3 15:57 Follow up: Response: No adverse reaction kc6 13:39 Drug: morphine IVP or IV 4 mg IVP once over 4 mins Route: IVP; Infused Over: 4 mins; ap3 Site: right antecubital; 15:57 Follow up: Response: No adverse reaction; Pain is unchanged, physician notified; RASS: kc6 Alert and Calm (0) 13:39 Drug: NS 0.9% IV 1000 ml IV at 1 bolus Per protocol; to be given as a bolus over 60 ap3 minutes Route: IV; Rate: 1 bolus; Site: right antecubital; 15:12 Drug: D5W IV 1000 ml, Sodium Bicarbonate IVP 150 mEq IV at 75 ml/hr continuous Route: jb4 IV; Rate: 75 ml/hr; Site: right antecubital; 16:06 Drug: HYDROmorphone IVP 1 mg IVP once Route: IVP; Site: right antecubital; jb4 Disposition: 18:56 Co-signature as Attending Physician, Homer Mendoza MD I reviewed the patient's care rn provided by the Advanced Practice Provider and agree with the diagnosis and treatment plan. Disposition Summary: 04/15/24 15:56 Hospitalization Ordered Notes: Hospitalization Status: Inpatient Admission sb4 Provider: Boris Arnold sb4 Location: Telemetry/[facility] (Inpatient) sb4 Condition: Fair sb4 Problem: new sb4 Symptoms: are unchanged sb4 Bed/Room Type: Standard sb4 Room Assignment: 411(04/15/24 17:39) bd Diagnosis - Other acute pancreatitis without necrosis or infection sb4 - Acidosis - metabolic sb4 Forms: - Medication Reconciliation Form sb4 - SBAR form sb4 - Leadership Thank You Letter sb4 Critical care time excluding procedures: 14:47 Critical care time: Bedside Care: 20 minutes, Consultation: 15 minutes. Total time: 35 sb4 minutes Signatures: Dispatcher [employer] EDMS Hanny Cid Roman, MD MD rn Bryson, James RN RN jb4 Sudha Barrera RN RN ap3 Brandie Díaz PA-C PAWilliam sb4 Sarahy Perez RN RN cm10 Kailyn Lehman RN kc6 Corrections: (The following items were deleted from the chart) 13:11 13:11 BLOOD CULTURE*+BA.LAB.BRZ ordered. EDMS EDMS 13:11 13:11 CBC+H.LAB.BRZ ordered. EDMS EDMS 13:11 13:11 COMPREHENSIVE METABOLIC PANEL+C.LAB.BRZ ordered. EDMS EDMS 13:11 13:11 LACTATE+C.LAB.BRZ ordered. EDMS EDMS 13:11 13:11 PROTIME (+INR)+COAG.LAB.BRZ ordered. EDMS EDMS 13:11 13:11 PTT, ACTIVATED+COAG.LAB.BRZ ordered. EDMS EDMS 13:11 13:11 Urinalysis+U.LAB.BRZ ordered. EDMS EDMS 13:11 13:11 LIPASE+C.LAB.BRZ ordered. EDMS EDMS 13:11 13:11 Abdomen Pelvis W Con+CT.RAD.BRZ ordered. EDMS EDMS 16:39 16:27 Urinalysis w/ reflexes ordered. EDMS EDMS 16:40 16:27 Basic Metabolic Panel ordered. EDMS EDMS 16:40 16:27 Basic Metabolic Panel ordered. EDMS EDMS 16:40 16:27 Basic Metabolic Panel ordered. EDMS EDMS 16:40 16:27 Basic Metabolic Panel ordered. EDMS EDMS 16:40 16:27 Basic Metabolic Panel ordered. EDMS EDMS 16:40 16:27 Basic Metabolic Panel ordered. EDMS EDMS 16:40 16:27 Basic Metabolic Panel ordered. EDMS EDMS 16:40 16:27 Basic Metabolic Panel ordered. EDMS EDMS 16:43 15:56 sb4 bd 17:39 16:43 416 bd bd
[2024-04-15] MEDS ORDERED: HYDROMORPHONE HCL 1 MG/ML INJ ONE (16:00)
[2024-04-15] MEDS ORDERED: GLUCAGON 1 MG/VIAL IM PRN (16:30)
[2024-04-15] MEDS: INSULIN REGULAR (HUMAN) 100 UNIT/ML SQ SCH (16:30)
[2024-04-15] MEDS ORDERED: D10W 125 ML IV PRN (16:30)
--- NOTE | 2024-04-15 16:35 | P.HP ---
Certification for Inpatient Patient admitted to: Inpatient With expected LOS: >2 Midnights Patient will require the following post-hospital care: None Practitioner: I am a practitioner with admitting privileges, knowledge of patient current condition, hospital course, and medical plan of care. Services: Services provided to patient in accordance with Admission requirements found in Title 42 Section 412.3 of the Code of Federal Regulations <Zuleika Solomon - Last Filed: 04/15/24 18:55> Patient History Date of Service: 04/15/24 Reason for admission: Acute pancreatitis with metabolic acidosis History of Present Illness: Seth Flowers is a 59-year-old male with past medical history of Diabetes mellitusIDDM, GERD, seizures, heart murmur, hypertension, multiple sclerosis, tachycardia who presents to the ED with chief complaint of severe epigastric pain that started last night. He reports having abdominal pain for 2 weeks that was more mild last night. He reports his last episode of pancreatitis was in December 2023. Laboratory evaluation significant for sodium 129, potassium 3.4, bicarb 9, anion gap 27.4, serum glucose 212, AST 141, ALT 90, alk phos 216, lipase 147, ABG pH 7.2, pCO2 19, pO2 122, HCO3 7.4. Seth will be admitted to hospitalist service for further treatment of acute pancreatitis. - Past Medical/Surgical History Diabetic: Yes -: Hypertension, Diabetes mellitus -: Hyperlipidemia -: Peripheral neuropathy -: Obesity -: History of GERD -: Diabetes mellitus -: cataract sx -: cholecystectomy - Family History Father -: Cancer Notes: prostate CA Mother -: Heart disease Brother -: GI disease Notes: crohn's, ulcerative colitis - Social History Smoking Status: Never smoker Alcohol use: No CD- Drugs: No Caffeine use: Yes <Zuleika Solomon - Last Filed: 04/15/24 18:55> Date of Service: 04/15/24 <lolly macias - Last Filed: 04/15/24 20:30> Allergies rofecoxib [From Vioxx] Allergy (Verified 07/28/16 09:28) Rash No K Allergy (Uncoded 12/14/16 01:01) Unknown Home Medications: Metformin HCl [Glucophage] 1,000 mg PO BID 05/19/16 Omeprazole 40 mg PO DAILY 05/19/16 Simvastatin [Zocor*] 40 mg PO BEDTIME 05/19/16 lisinopriL [Prinivil*] 10 mg PO DAILY 05/19/16 Sildenafil Citrate 100 mg PO PRN PRN 08/26/19 Amlodipine [Norvasc*] 10 mg PO DAILY #30 tab 04/14/21 levETIRAcetam [Keppra*] 500 mg PO BID #60 tab 04/14/21 Ezetimibe [Zetia*] 10 mg PO DAILY 12/15/23 Fenofibrate [Tricor*] 48 mg PO DAILY 12/15/23 Hydrocodone/Acetaminophen [Hydrocodon-Acetaminophen 5-325] 1 tab PO Q8H PRN #15 tab 12/19/23 Review of Systems Gastrointestinal: Nausea, Abdominal Pain <Zuleika Solomon - Last Filed: 04/15/24 18:55> Physical Examination - Physical Exam General: Alert, In no apparent distress, Oriented x3 HEENT: Atraumatic, Normocephalic, PERRLA Neck: Supple, 2+ carotid pulse no bruit Respiratory: Clear to auscultation bilaterally, Normal air movement Cardiovascular: Normal pulses, Regular rate/rhythm, Normal S1 S2 Capillary refill: <2 Seconds Gastrointestinal: Soft and benign, Tenderness (epigastric) Musculoskeletal: No clubbing Integumentary: No rashes Neurological: Normal speech, Normal tone - Studies Laboratory Data (last 24 hrs) 04/15/24 04/15/24 04/15/24 13:30 13:30 13:30 WBC 9.30 Hgb 17.2 Hct 51.6 H Plt Count 209 PT 11.7 INR 1.12 APTT 41.7 H Sodium 129 L Potassium 3.4 L BUN 12 Creatinine 1.24 Glucose 212 H Magnesium 1.6 Total Bilirubin 0.9 AST 141 H ALT 90 H Alkaline Phosphatase 216 H Lipase 147 H <Zuleika Solomon - Last Filed: 04/15/24 18:55> - Studies Laboratory Data (last 24 hrs) 04/15/24 04/15/24 04/15/24 13:30 13:30 13:30 WBC 9.30 Hgb 17.2 Hct 51.6 H Plt Count 209 PT 11.7 INR 1.12 APTT 41.7 H Sodium 129 L Potassium 3.4 L BUN 12 Creatinine 1.24 Glucose 212 H Magnesium 1.6 Total Bilirubin 0.9 AST 141 H ALT 90 H Alkaline Phosphatase 216 H Lipase 147 H <lolly macias - Last Filed: 04/15/24 20:30> Assessment and Plan - Plan Assessment and plan Acute pancreatitis with metabolic acidosis Transaminitis Hyponatremia -AST 141, ALT 90, alk phos 216, lipase 147 -ABG pH 7.2, pCO2 19, pO2 122, HCO3 7.4 -sodium 129, bicarb 9, anion gap 27.4 -Lipid panel negative -Aggressive IV fluids -Lipase and LFTs daily -Pain control -Bicarb drip in the ED -A1c -N.p.o. Diabetes mellitusIDDM -Accu-Chek with sliding scale insulin -serum glucose 212 Seizures -Seizure medication IV until taking p.o. GERD Hypertension Multiple sclerosis Tachycardia -Continue home medication when taking p.o. DVT PPx SCDs Full code LOS 2 days Discharge Plan: Home Plan to discharge in: 48 Hours - Advance Directives Does patient have a Living Will: No Does patient have a Durable POA for Healthcare: No <Zuleika Solomon - Last Filed: 04/15/24 18:55> - Plan Patient with severe metabolic acidosis. Blood glucose moderately elevated. Patient likely has DKA with associated pancreatitis. Check beta hydroxybutyrate. Transferred to the ICU and initiate DKA protocol with insulin drip and aggressive IV hydration. Serial lipase to follow pancreatitis <lolly macias - Last Filed: 04/15/24 20:30>
[2024-04-15] MEDS: NA CHLORIDE 0.9% 1,000 ML IV SCH (17:00)
[2024-04-15] MEDS ORDERED: D50W 25 GM/50 ML SYRINGE IV PRN ×2 (19:24→20:58)
[2024-04-15] MEDS: D5W 1,000 ML IV SCH (20:00)
[2024-04-15] MEDS ORDERED: INSULIN REGULAR, HUMAN 100 UNIT in NA CHLORIDE 0.9% 100 ML IV SCH (20:00)
[2024-04-15] MEDS: HYDROMORPHONE HCL 1 MG/ML INJ IV PRN (20:12)
[2024-04-15 21:08] LABS: BETA HYDROXYBUTYRATE > 4.50 mmol/L (0.02-0.27)
[2024-04-15] MEDS: NA CHLORIDE 0.9% 0 ML ONE (21:16)
[2024-04-15] MEDS: NA CHLORIDE 0.9% 100 ML ONE (21:27)
[2024-04-15] MEDS: INSULIN REGULAR, HUMAN 100 UNIT in NA CHLORIDE 0.9% 100 ML IV SCH (21:38)
[2024-04-15] MEDS: levETIRAcetam 500 MG in NA CHLORIDE 0.9% 100 ML IV SCH (21:39)
[2024-04-15 21:50] LABS: Anion Gap 24.1 mEq/L (5.0-15.0); BUN Blood Urea Nitrogen 10 mg/dL (7-18); Bicarbonate 11 mEq/L (21-32); Glomerular Filtration Rate 73 ml/min (=/>90); Glucose Level 198 mg/dL (74-106); Potassium 4.1 mEq/L (3.5-5.1); Sodium Level 132 mEq/L (136-145)
[2024-04-16 00:33] LABS: Anion Gap 19.4 mEq/L (5.0-15.0); Potassium 3.4 mEq/L (3.5-5.1)
[2024-04-16] MEDS: KCL 20 MEQ/100 mL IVPB 20 MEQ/100 ML BAG IV SCH ×2 (02:22→19:00)
[2024-04-16 03:35] LABS: Sqamous Epithelial None Seen /HPF (None Seen); Urine Bacteria None Seen /HPF (<20); Urine Bilirubin 1+ (Negative); Urine Blood Negative (Negative); Urine Clarity Clear (Clear); Urine Color Light-Yellow (Yellow); Urine Culture Reflex Order NOT NEEDED; Urine Glucose 4+ (Over) (Negative); Urine Ketones 4+ (Over) (Negative); Urine Microscopic Reflex YN ORDER UMIC; Urine Mucus Slight /HPF (None Seen); Urine Nitrite NEGATIVE (Negative); Urine Protein 1+ (Negative); Urine RBC <5 /HPF (None Seen); Urine Urobilinogen 1+ (Normal); Urine WBC <5 /HPF (<5)
[2024-04-16 04:07] LABS: Anion Gap 21.3 mEq/L (5.0-15.0); Potassium 3.3 mEq/L (3.5-5.1)
[2024-04-16] MEDS: D5W 1,000 ML with NA BICARB 8.4% 150 MEQ IV SCH ×2 (06:10→17:38)
[2024-04-16 07:02] LABS: Absolute Lymphocytes (CBC) 1.4 K/uL (0.7-4.9); Absolute Monocytes 1.1 K/uL (0.1-1.3); Absolute Neutrophil 5.3 K/uL (1.8-8.0); Basophils % 0.3 % (0-1.3); Eosinophils % 0.5 % (0-4.4); Hematocrit 46.8 % (39.6-49.0); Hemoglobin 15.9 g/dL (13.6-17.9); Lymphocytes % 17.6 % (15.3-44.8); MCH 32.6 pg (27.0-35.0); MCV 96.1 fL (80-100); MPV 8.3 fL (7.6-11.3); Monocytes % 13.9 % (3.3-12.3); Neutrophils % 67.7 % (41.7-73.7); Nucleated Red Blood Cells % 0.1 % (0-0); Platelets 196 thou/uL (152-406); RBC Red Blood Cell Count 4.87 M/uL (4.33-5.43); Red Cell Distribution Width 12.6 % (12.1-15.2)
[2024-04-16 07:08] LABS: Albumin 3.8 g/dL (3.4-5.0); Anion Gap 17.4 mEq/L (5.0-15.0); Bilirubin Total 0.7 mg/dL (0.2-1.0); Globulin 3.9 g/dL (2.3-3.5); Magnesium 1.7 mg/dL (1.6-2.4); Potassium 4.4 mEq/L (3.5-5.1); Protein, Total 7.7 g/dL (6.4-8.2)
[2024-04-16] MEDS: FLU (Fluarix Triv) TS24-25(6MOS UP)/PF 45 MCG/0.5 ML Syringe IM ONE (07:15)
[2024-04-16 07:20] LABS: Phosphorus 1.2 mg/dL (2.5-4.9)
[2024-04-16] MEDS: SODIUM PHOSPHATE 15 MM in NA CHLORIDE 0.9% 250 ML IV ONE (08:13)
[2024-04-16] MEDS: SODIUM PHOSPHATE 15 MM in NA CHLORIDE 0.9% 250 ML IV SCH (08:40)
--- NOTE | 2024-04-16 13:25 | P.PN ---
Date of Service: 04/16/24 Subjective: Abdominal pain slowly improving No acute vents overnight Still with nausea ROS: 10 point ROS as noted above, otherwise negative Physical exam GEN: Alert, oriented, NAD HEENT: Normal conjunctiva, sclera anicteric CV: Regular rate and rhythm, no edema Pulm: Nonlabored respirations on room air ABD: Soft, nontender, nondistended MSK: No joint tenderness Integumentary: No rashes Neuro: Normal speech, normal affect Vitals reviewed Problem List Diabetes mellitus type [id number]-qlsamchft with ketoacidosis Acute pancreatitis Hypertension Hyperlipidemia History of GERD Plan Diabetes mellitus type 9mmt-zjjorje-fjguffyrq with ketoacidosis Anion gap improving on insulin drip, dextrose containing fluids Anion gap 13 this morning, will repeat around 10 AM May able to wean insulin drip/dextrose containing fluids today Will obtain A1c Taking metformin, Jardiance at home Was previously on Ozempic but this was stopped during his last pancreatitis episode as it was thought to possibly be contributing Acute pancreatitis Okay for sips of water and ice chips As needed pain medications Lipase downtrending No significant complications on CT Hypertension Hyperlipidemia History of GERD Continue home medications when tolerating p.o. and meds are verified VTE: Lovenox Code: Full Dispo: 2 to 3 days Time Spent Managing Pts Care (In Minutes): 35
[2024-04-16 13:29] LABS: Anion Gap 19.7 mEq/L (5.0-15.0); Potassium 3.7 mEq/L (3.5-5.1)
[2024-04-16 17:01] VITALS: BMI 25.7
[2024-04-16 17:12] LABS: Anion Gap 19.2 mEq/L (5.0-15.0); Potassium 3.2 mEq/L (3.5-5.1)
[2024-04-16] MEDS ORDERED: D5W 1,000 ML with NA BICARB 8.4% 150 MEQ IV SCH (18:00)
[2024-04-16] MEDS: POTASSIUM 25 MEQ EFFERV TAB PO ONE (21:08)
[2024-04-16] MEDS: HYDRALAZINE HCL 20 MG/ML VIAL IV PRN (21:42)
[2024-04-16] MEDS: ONDANSETRON 4 MG/2 ML VIAL IV PRN (21:42)
[2024-04-16 23:17] LABS: Magnesium 1.5 mg/dL (1.6-2.4); Phosphorus 1.8 mg/dL (2.5-4.9)
[2024-04-17 01:03] LABS: Anion Gap 18.6 mEq/L (5.0-15.0); Magnesium 1.5 mg/dL (1.6-2.4); Potassium 3.6 mEq/L (3.5-5.1)
[2024-04-17 01:04] LABS: Phosphorus 1.1 mg/dL (2.5-4.9)
[2024-04-17] MEDS: NA CHLORIDE 0.9% 100 ML ONE (02:32)
[2024-04-17] MEDS: Magnesium Sulfate 2gm IVPB 2 G/50 ML BAG IV ONE (02:47)
[2024-04-17] MEDS: POTASSIUM PHOS IN 0.9 % NACL 15 MMOL/250 ML BAG IV ONE (02:47)
[2024-04-17 05:31] LABS: Absolute Eosinophils 0.1 K/uL (0-0.5); Absolute Lymphocytes (CBC) 1.6 K/uL (0.7-4.9); Absolute Monocytes 1.1 K/uL (0.1-1.3); Basophils % 0.4 % (0-1.3); Hematocrit 43.3 % (39.6-49.0); Lymphocytes % 23.2 % (15.3-44.8); MCHC 34.7 g/dL (32.0-36.0); MCV 95.1 fL (80-100); Monocytes % 16.6 % (3.3-12.3); Neutrophils % 58.8 % (41.7-73.7); Nucleated Red Blood Cells % 0.1 % (0-0); Platelets 170 thou/uL (152-406); RBC Red Blood Cell Count 4.56 M/uL (4.33-5.43); Red Cell Distribution Width 12.6 % (12.1-15.2)
[2024-04-17 05:43] LABS: Albumin 3.2 g/dL (3.4-5.0); Albumin/Globulin Ratio 0.9 (1.1-1.8); Anion Gap 15.3 mEq/L (5.0-15.0); Bilirubin Total 0.7 mg/dL (0.2-1.0); Globulin 3.7 g/dL (2.3-3.5); Magnesium 2.2 mg/dL (1.6-2.4); Phosphorus 2.1 mg/dL (2.5-4.9); Potassium 3.3 mEq/L (3.5-5.1); Protein, Total 6.9 g/dL (6.4-8.2)
[2024-04-17] MEDS: INSULIN REGULAR (HUMAN) 100 UNIT/ML SQ SCH (07:30)
[2024-04-17] MEDS: Ringers Lactate 1,000 ML IV SCH ×2 (08:56→19:55)
[2024-04-17] MEDS: INSULIN GLARGINE 100 UNIT/ML SQ ONE (08:57)
[2024-04-17] MEDS: Mupirocin NASAL 2 APPL/1 GM TUBE NAS SCH (08:58)
[2024-04-17] MEDS ORDERED: Mupirocin NASAL 2 APPL/1 GM TUBE NAS SCH (09:00)
--- NOTE | 2024-04-17 11:34 | P.PN ---
Date of Service: 04/17/24 Subjective: Abdominal pain improving Anion gap closed Off insulin drip since this morning Downgrade to floor ROS: 10 point ROS as noted above, otherwise negative Physical exam GEN: Alert, oriented, NAD HEENT: Normal conjunctiva, sclera anicteric CV: Regular rate and rhythm, no edema Pulm: Nonlabored respirations on room air ABD: Soft, nontender, nondistended MSK: No joint tenderness Integumentary: No rashes Neuro: Normal speech, normal affect Vitals reviewed Problem List Diabetes mellitus type 5shl-cruyyvx-zejvoxldz with ketoacidosis Acute pancreatitis Hypertension Hyperlipidemia History of GERD Plan Diabetes mellitus type 9lvu-pfedirm-ynmqferiw with ketoacidosis Off insulin drip since this morning Given long-acting insulin Sliding scale in place Advance diet Will obtain A1c ~9 Taking metformin, Jardiance at home Was previously on Ozempic but this was stopped during his last pancreatitis episode as it was thought to possibly be contributing Acute pancreatitis Carb consistent diet As needed pain medications Lipase downtrending No significant complications on CT Hypertension Hyperlipidemia History of GERD Continue home medications when tolerating p.o. and meds are verified VTE: Lovenox Code: Full Dispo: 1 to 2 days Time Spent Managing Pts Care (In Minutes): 35
[2024-04-17] MEDS: HYDROCODONE/APAP 5/325 MG TAB PO PRN (11:38)
[2024-04-17 16:36] LABS: Anion Gap 16.1 mEq/L (5.0-15.0); Potassium 3.1 mEq/L (3.5-5.1)
[2024-04-17] MEDS: FENOFIBRATE 48 MG TAB PO SCH (16:38)
[2024-04-17] MEDS: AMLODIPINE 10 MG TAB PO SCH (16:39)
[2024-04-17] MEDS: PANTOPRAZOLE 40MG TABLET PO SCH (16:39)
[2024-04-17] MEDS: lisinopriL 20 MG TAB PO SCH (16:39)
[2024-04-17] MEDS: EZETIMIBE 10 MG TAB PO SCH (16:40)
[2024-04-17] MEDS: levETIRAcetam 500 MG TAB PO SCH (19:55)
[2024-04-18 05:16] LABS: Absolute Eosinophils 0.1 K/uL (0-0.5); Absolute Lymphocytes (CBC) 1.5 K/uL (0.7-4.9); Absolute Monocytes 1.3 K/uL (0.1-1.3); Absolute Neutrophil 3.4 K/uL (1.8-8.0); Basophils % 0.5 % (0-1.3); Eosinophils % 1.9 % (0-4.4); Hematocrit 42.4 % (39.6-49.0); Hemoglobin 14.8 g/dL (13.6-17.9); Lymphocytes % 24.3 % (15.3-44.8); MCH 32.8 pg (27.0-35.0); MCHC 34.9 g/dL (32.0-36.0); MCV 94.2 fL (80-100); MPV 8.3 fL (7.6-11.3); Monocytes % 20.5 % (3.3-12.3); Neutrophils % 52.8 % (41.7-73.7); Platelets 165 thou/uL (152-406); Red Cell Distribution Width 12.5 % (12.1-15.2)
[2024-04-18 05:40] LABS: Albumin/Globulin Ratio 0.8 (1.1-1.8); Bilirubin Total 0.7 mg/dL (0.2-1.0); Globulin 3.7 g/dL (2.3-3.5); Magnesium 1.7 mg/dL (1.6-2.4); Phosphorus 2.3 mg/dL (2.5-4.9); Protein, Total 6.7 g/dL (6.4-8.2)
[2024-04-18] MEDS: MAGNESIUM SULFATE 1 gm IVPB 1 GM/100 ML BAG IV ONE (06:13)
[2024-04-18] MEDS: POTASSIUM CL SA 10 MEQ TAB PO ONE (06:13)
[2024-04-18] MEDS: POTASS/SODIUM PHOSPHATE 1 PKT POWD.PACK PO SCH (06:14)
[2024-04-18] MEDS: INSULIN GLARGINE 100 UNIT/ML SQ SCH (06:26)
[2024-04-18] MEDS ORDERED: D5W 1,000 ML with NA BICARB 8.4% 100 MEQ IV SCH (07:00)
[2024-04-18 08:37] LABS: Band Neutrophils 1 % (0-1); Differential Total Cells Count 100; Eosinophils 2 % (0-3); Lymphocytes 19 % (15-42); Monocytes 24 % (0-10); Segmented Neutrophils 52 % (40-80)
[2024-04-18 08:38] LABS: Blood Morphology Comment NOT SEEN (NOT SEEN); Platelet Estimate ADEQ
[2024-04-18] MEDS ORDERED: HOME MED 1 EA UNK (Omeprazole [Omeprazole] 20 MG Capsule.Dr) PO SCH (09:00)
--- NOTE | 2024-04-18 09:17 | P.PN ---
Date of Service: 04/18/24 Subjective: Abdominal pain improving Anion gap slightly elevated this morning Off insulin drip since 04/17 Tolerating some diet abd pain improved ROS: 10 point ROS as noted above, otherwise negative Physical exam GEN: Alert, oriented, NAD HEENT: Normal conjunctiva, sclera anicteric CV: Regular rate and rhythm, no edema Pulm: Nonlabored respirations on room air ABD: Soft, nontender, nondistended MSK: No joint tenderness Integumentary: No rashes Neuro: Normal speech, normal affect Vitals reviewed Problem List Diabetes mellitus type 4xgm-boxolug-iwkwcxear with ketoacidosis Acute pancreatitis Hypertension Hyperlipidemia History of GERD Plan Diabetes mellitus type 6gst-yoyganv-puprixzrj with ketoacidosis Off insulin drip since 04/17 Bicarb lower this morning, gap reopened slightly Start bicarb containing fluids Blood sugars are well-controlled Recheck demonstrate this afternoon Given long-acting insulin Sliding scale in place Advanced diet Will obtain A1c ~9 Taking metformin, Jardiance at home Was previously on Ozempic but this was stopped during his last pancreatitis episode as it was thought to possibly be contributing Acute pancreatitis Carb consistent diet As needed pain medications Lipase downtrending No significant complications on CT Hypertension Hyperlipidemia History of GERD Continue home medications when tolerating p.o. and meds are verified VTE: Lovenox Code: Full Dispo: 1 to 2 days Time Spent Managing Pts Care (In Minutes): 35
[2024-04-18] MEDS: WATER FOR INJ,STERILE 1,000 ML with NA BICARB 8.4% 100 MEQ IV SCH (09:22)
--- NOTE | 2024-04-18 12:03 | EKG ---
Test Date: 2024-04-15 Test Time: 13:17:29 Services Host: [facility] MEASUREMENT RESULTS: Intervals: Rate: 127 DE: 130 QRSD: 78 QT: 316 QTc: 459 [place]: P: 56 DE: 130 QRS: 25 T: 67 INTERPRETIVE STATEMENTS: Sinus tachycardia Possible Left atrial enlargement Low voltage QRS Cannot rule out Anterior infarct, age undetermined Abnormal ECG Compared to ECG 12/14/2023 22:54:27 Low QRS voltage now present Myocardial infarct finding now present Electronically Signed On 04-18-24 12:00:48 NURSE RESEARCHER by Kristian Cordero
[2024-04-18 14:03] LABS: Anion Gap 13.3 mEq/L (5.0-15.0); Potassium 3.3 mEq/L (3.5-5.1)
[2024-04-19 02:30] VITALS: O2SAT 100
[2024-04-19 05:29] LABS: Absolute Eosinophils 0.1 K/uL (0-0.5); Absolute Lymphocytes (CBC) 1.7 K/uL (0.7-4.9); Absolute Neutrophil 2.7 K/uL (1.8-8.0); Basophils % 0.7 % (0-1.3); Eosinophils % 2.5 % (0-4.4); Hematocrit 41.2 % (39.6-49.0); Hemoglobin 14.4 g/dL (13.6-17.9); MCH 32.9 pg (27.0-35.0); MCHC 34.9 g/dL (32.0-36.0); MCV 94.4 fL (80-100); Monocytes % 17.8 % (3.3-12.3); Nucleated Red Blood Cells % 0.1 % (0-0); Platelets 143 thou/uL (152-406); RBC Red Blood Cell Count 4.37 M/uL (4.33-5.43); Red Cell Distribution Width 12.7 % (12.1-15.2)
[2024-04-19 05:41] LABS: Albumin 3.1 g/dL (3.4-5.0); Albumin/Globulin Ratio 0.9 (1.1-1.8); Anion Gap 16.4 mEq/L (5.0-15.0); Bilirubin Total 0.6 mg/dL (0.2-1.0); Globulin 3.3 g/dL (2.3-3.5); Magnesium 1.8 mg/dL (1.6-2.4); Phosphorus 2.8 mg/dL (2.5-4.9); Potassium 3.4 mEq/L (3.5-5.1); Protein, Total 6.4 g/dL (6.4-8.2)
[2024-04-19] MEDS: POTASSIUM CL SA 10 MEQ TAB PO ONE (09:36)
[2024-04-19] MEDS: MAGNESIUM SULFATE 1 gm IVPB 1 GM/100 ML BAG IV ONE (09:37)
[2024-04-19 09:38] VITALS: BP 125/87
--- NOTE | 2024-04-19 10:14 | P.DS ---
Admission Date: 04/15/24 Discharge Date: 04/19/24 Disposition: ROUTINE DISCHARGE Discharge Condition: GOOD Reason for Admission: Acute pancreatitis with metabolic acidosis Brief History of Present Illness: Seth Flowers is a 59-year-old male with past medical history of Diabetes mellitusIDDM, GERD, seizures, heart murmur, hypertension, multiple sclerosis, tachycardia who presents to the ED with chief complaint of severe epigastric pain that started last night. He reports having abdominal pain for 2 weeks that was more mild last night. He reports his last episode of pancreatitis was in December 2023. Laboratory evaluation significant for sodium 129, potassium 3.4, bicarb 9, anion gap 27.4, serum glucose 212, AST 141, ALT 90, alk phos 216, lipase 147, ABG pH 7.2, pCO2 19, pO2 122, HCO3 7.4. Seth will be admitted to hospitalist service for further treatment of acute pancreatitis. Hospital Course: Problem List Diabetes mellitus type 9khf-fzikhln-hfnvowrie with ketoacidosis Acute pancreatitis Hypertension Hyperlipidemia History of GERD Patient was admitted to the hospital for pancreatitis, DKA. He was initially treated with insulin drip, n.p.o. status, IV fluids and as needed pain medications. His symptoms gradually improved and he is tolerating a diet, anion gap is closed and bicarb has improved. Is unclear what sparked this episode of pancreatitis/DKA, his last episode was thought to possibly be contributed to by Ozempic which she had discontinued. He does not drink, his triglycerides were 116. We checked his A1c and it was 9.4, at home he is taking metformin and Jardiance. Recommend close follow-up with PCP for further management of his diabetes. CT showed uncomplicated pancreatitis. Patient is stable for discharge and outpatient follow-up with his primary care doctor this time. Prescription for as needed pain medications to be sent to his pharmacy. Vital Signs/Physical Exam: Temp Pulse Resp BP Pulse Ox 97.9 F 88 16 125/87 99 04/19/24 05:18 04/19/24 09:35 04/19/24 10:09 04/19/24 09:35 04/19/24 10:09 General: Alert, In no apparent distress, Oriented x3 HEENT: Atraumatic, PERRLA Neck: Supple, JVD not distended Respiratory: Clear to auscultation bilaterally, Normal air movement Cardiovascular: Regular rate/rhythm, Normal S1 S2 Gastrointestinal: Normal bowel sounds, No tenderness Musculoskeletal: No tenderness Integumentary: No rashes Neurological: Normal speech, Normal tone, Normal affect Laboratory Data at Discharge: WBC 5.60 thou/uL (4.3-10.9) 04/19/24 05:15 Hgb 14.4 g/dL (13.6-17.9) 04/19/24 05:15 Hct 41.2 % (39.6-49.0) 04/19/24 05:15 Plt Count 143 thou/uL (152-406) L 04/19/24 05:15 PT 11.7 SECONDS (9.4-12.5) 04/15/24 13:30 INR 1.12 04/15/24 13:30 APTT 41.7 SECONDS (24.3-36.9) H 04/15/24 13:30 Sodium 140 mEq/L (136-145) D 04/19/24 05:15 Potassium 3.4 mEq/L (3.5-5.1) L 04/19/24 05:15 BUN 6 mg/dL (7-18) L 04/19/24 05:15 Creatinine 0.76 mg/dL (0.70-1.30) 04/19/24 05:15 Glucose 115 mg/dL (74-106) H 04/19/24 05:15 Phosphorus 2.8 mg/dL (2.5-4.9) 04/19/24 05:15 Magnesium 1.8 mg/dL (1.6-2.4) 04/19/24 05:15 Total Bilirubin 0.6 mg/dL (0.2-1.0) 04/19/24 05:15 AST 51 U/L (15-37) H 04/19/24 05:15 ALT 56 U/L (16-61) 04/19/24 05:15 Alkaline Phosphatase 121 U/L (45-117) H 04/19/24 05:15 Triglycerides 116 mg/dL (<150) 04/15/24 18:35 Cholesterol 100 mg/dL (<200) 04/15/24 18:35 HDL Cholesterol 45 mg/dL (40-60) 04/15/24 18:35 Cholesterol/HDL Ratio 2.22 04/15/24 18:35 Lipase 22 U/L (13-75) 04/19/24 05:15 Home Medications: Metformin HCl [Glucophage] 1,000 mg PO BID 05/19/16 Omeprazole 40 mg PO DAILY 05/19/16 Simvastatin [Zocor*] 40 mg PO BEDTIME 05/19/16 lisinopriL [Prinivil*] 10 mg PO DAILY 05/19/16 Sildenafil Citrate 100 mg PO PRN PRN 08/26/19 Amlodipine [Norvasc*] 10 mg PO DAILY #30 tab 04/14/21 levETIRAcetam [Keppra*] 500 mg PO BID #60 tab 04/14/21 Ezetimibe [Zetia*] 10 mg PO DAILY 12/15/23 Fenofibrate [Tricor*] 48 mg PO DAILY 12/15/23 Empagliflozin [Jardiance] 10 mg PO DAILY 04/15/24 Fenofibrate [Tricor*] 48 mg PO DAILY 04/15/24 Physician Discharge Instructions: Patient was admitted to the hospital for pancreatitis, DKA. He was initially treated with insulin drip, n.p.o. status, IV fluids and as needed pain medications. His symptoms gradually improved and he is tolerating a diet, anion gap is closed and bicarb has improved. Is unclear what sparked this episode of pancreatitis/DKA, his last episode was thought to possibly be contributed to by Ozempic which she had discontinued. He does not drink, his triglycerides were 116. We checked his A1c and it was 9.4, at home he is taking metformin and Jardiance. Recommend close follow-up with PCP for further management of his diabetes. CT showed uncomplicated pancreatitis. Patient is stable for discharge and outpatient follow-up with his primary care doctor this time. Prescription for as needed pain medications to be sent to his pharmacy. Diet: ADA Activity: Ad kylah Followup: Beata Paz FNP [Primary Care Provider] - 1 Week Time spent managing pt's care (in minutes): 42
[2024-04-19 10:42] VITALS: TEMP 98
[2024-04-19 13:26] LABS: Anion Gap 15.2 mEq/L (5.0-15.0); Potassium 3.2 mEq/L (3.5-5.1)
== END 2024-04-19 14:24 | disposition home or self-care (01) | DRG 438 ==
LOC: ER 12:32 → 4TH 16:20 → 3RD-ICU 20:40 → 4TH 04-17 14:30
PROVIDERS: ADMIT Internal Medicine; ATTEND Hospitalist
PROC: 4A033R1 Measurement of Arterial Saturation, Peripheral, Percutaneous Approach (ICD-10-PCS; principal; 2024-04-15)
DX: K85.90 Acute pancreatitis without necrosis or infection, unspecified (principal); E11.10 Type 2 diabetes mellitus with ketoacidosis without coma; E87.1 Hypo-osmolality and hyponatremia; E11.8 Type 2 diabetes mellitus with unspecified complications; Z79.4 Long term (current) use of insulin; I10 Essential (primary) hypertension; G35 Multiple sclerosis; K21.9 Gastro-esophageal reflux disease without esophagitis; G40.909 Epilepsy, unspecified, not intractable, without status epilepticus; E78.5 Hyperlipidemia, unspecified; E66.9 Obesity, unspecified; Z68.25 Body mass index [BMI] 25.0-25.9, adult; R74.01 Elevation of levels of liver transaminase levels
CPT/HCPCS: 36415; 36600; 74177; 80048; 80053; 80061; 80177; 81001; 82010; 82805; 82947; 83036; 83605; 83690; 83735; 84100; 85025; 85610; 85730; 87040; 93005; 96374; 96375; 99285; J0360; J1171; J1953; J2405; J3475; J3480; J7030; J7050; J7120; Q9967